=== PATIENT | female | born 1985 | race Caucasian/White ===

== ENCOUNTER 2021-11-10 13:21 | Outpatient (REF) | payer OTHER, SELFPAY ==
[2021-11-12 15:34] LABS: H Pylori Breath Test Negative (Negative)
== END 2021-11-10 13:22 | disposition home or self-care (01) ==
LOC: HO.LNP 13:21
PROVIDERS: PCP Internal Medicine; Visit Provider Physician Assistant
DX: E66.01 Morbid (severe) obesity due to excess calories (principal); Z68.45 Body mass index [BMI] 70 or greater, adult; R40.0 Somnolence; R06.83 Snoring; Z71.3 Dietary counseling and surveillance
CPT/HCPCS: 83013; 99202; 99211

== ENCOUNTER 2021-11-11 16:05 | Outpatient (REF) | payer OTHER, SELFPAY | END 2021-11-11 16:06 | disposition home or self-care (01) | LOC: HO.LNP 16:05 | PROVIDERS: Visit Provider Physician Assistant | DX: Z13.89 Encounter for screening for other disorder (principal) ==

== ENCOUNTER → 2021-12-06 07:57 | Outpatient (BNVA) | payer OTHER, SELFPAY | PROVIDERS: PCP Internal Medicine; Visit Provider Dietitian, Registered ==

== ENCOUNTER → 2022-08-10 10:29 | Outpatient (BNVA) | payer MEDICAID, SELFPAY | PROVIDERS: PCP Internal Medicine; Visit Provider Physician Assistant | DX: E66.01 Morbid (severe) obesity due to excess calories (principal); E78.00 Pure hypercholesterolemia, unspecified; R40.0 Somnolence; Z68.44 Body mass index [BMI] 60.0-69.9, adult | CPT/HCPCS: 99212 ==

== ENCOUNTER 2022-09-02 10:13 | Outpatient (REF) | payer MEDICAID, SELFPAY ==
--- NOTE | ~2022-09-02 | XR_ITS ---
EXAMINATION: XR CHEST CLINICAL INFORMATION: Scarring. COMPARISON: None. TECHNIQUE: 2 views of the chest were obtained. FINDINGS: There is no evidence of acute parenchymal disease, pneumothorax, or pleural effusion. Heart normal size. No evidence of pulmonary edema. There is spurring at multiple levels within the thoracic spine. On lateral view, there is a region of density overlying what appears to be the T7-T8 disc space level which is likely related to visualization of bony spurring rather than a true circumscribed mass. XR/XR chest 2V IMPRESSION: No acute disease.
[2022-09-02 10:34] LABS: MANUAL DIFF FLAG NO
--- NOTE | 2022-09-02 10:48 | ECG_ITS ---
Test Reason : snoring Blood Pressure : / mmHG Vent. Rate : 080 BPM Atrial Rate : 080 BPM P-R Int : 190 ms QRS Dur : 062 ms QT Int : 360 ms P-R-T Axes : 008 013 006 degrees QTc Int : 415 ms Normal sinus rhythm Normal ECG No previous ECGs available Referred By: Naomie Knott Electronically Signed By:MODESTO NARVAEZ
[2022-09-02 11:40] LABS: Basophils Percent Auto 0.4 % (0-2); Eosinophils Absolute Auto 0.1 X10*3/uL (0.0-0.4); Eosinophils Percent Auto 1.5 % (0-4); Hematocrit 37.9 % (37.0-47.0); Hemoglobin 12.2 g/dl (12.0-16.0); Imm Gran Abs Auto 0.03 X10*3/uL (0.00-0.03); Imm Gran Pct Auto 0.3 % (0.0-0.4); Lymphocytes Absolute Auto 2.2 X10*3/uL (1.2-4.9); Lymphocytes Percent Auto 22.7 % (20-40); Mean Corpuscular HGB Conc 32.2 g/dl (31.0-35.0); Mean Corpuscular Hemoglobin 25.8 pg (27.0-33.0); Mean Corpuscular Volume 80.3 fL (80.0-98.0); Mean Platelet Volume 11.4 fL (9.4-12.3); Monocytes Absolute Auto 0.7 X10*3/uL (0.1-1.2); Monocytes Percent Auto 6.9 % (2-11); Neutrophils Absolute Auto 6.6 x10*3/uL (2.0-8.3); Neutrophils Percent Auto 68.2 % (45-73); Platelet Count 318 X10*3/uL (160-400); Red Blood Count 4.72 X10*6/uL (4.20-5.50); Red Cell Distribution Width 16.4 % (11.0-16.0); White Blood Count 9.7 X10*3/uL (4.8-10.8)
[2022-09-02 11:48] LABS: Estimated Average Glucose 100 mg/dL; Hemoglobin A1c % 5.1 %
[2022-09-02 12:22] LABS: Alanine Aminotransferase 17 U/L (0-31); Albumin Level 4.3 g/dL (3.5-5.0); Alkaline Phosphatase 80 U/L (39-117); Anion Gap 14 (12-20); Aspartate Amino Transferase 17 U/L (5-31); Bilirubin Total 0.2 mg/dL (0.0-1.0); Blood Urea Nitrogen 17 mg/dL (9-16); C Reactive Protein 2.97 mg/dL (< or = 0.50); Calcium 9.1 mg/dL (8.4-10.2); Carbon Dioxide 23 mmol/L (22-29); Chloride 106 mmol/L (96-108); Cholesterol 168 mg/dL; Estimated Glomerular Filt Rate > 60; Glucose Random 97 mg/dL (60-115); HDL Cholesterol 47 mg/dL; Iron 38 mcg/dL (30-160); LDL Cholesterol Calculated 107 mg/dl; Percent Iron Saturation 14 % (15-50); Potassium 4.1 mmol/L (3.3-5.1); Sodium 139 mmol/L (135-145); Total Iron Binding Capacity 281 mcg/dL (228-428); Triglycerides 70 mg/dL; Unsaturated Iron Binding 243 ug/dL
[2022-09-02 12:43] LABS: Ferritin 24 ng/mL (10-122); Vitamin D 25-OH Total 27.6 ng/mL (>30)
[2022-09-02 13:13] LABS: Folate 14.3 ng/mL (> or = 4.0); Vitamin B12 847 pg/mL (200-900)
[2022-09-02 13:14] LABS: Insulin 14 uU/mL (2-29)
[2022-09-04 13:41] LABS: Calcium (PTHI) 9.1 mg/dL (8.6-10.2); PTHI 64 pg/mL (16-77)
[2022-09-07 06:12] LABS: Zinc 83 mcg/dL (60-130)
[2022-09-07 07:56] LABS: Vitamin B1 8 nmol/L (8-30)
[2022-09-07 17:33] LABS: Vitamin A 29 mcg/dL (38-98)
== END 2022-09-02 10:14 | disposition home or self-care (01) ==
LOC: HO.XRAY 10:13
PROVIDERS: PCP Internal Medicine; Visit Provider Physician Assistant
DX: R06.83 Snoring (principal); R40.0 Somnolence; E66.01 Morbid (severe) obesity due to excess calories
CPT/HCPCS: 36415; 71046; 80053; 80061; 82306; 82607; 82728; 82746; 83036; 83525; 83540; 83970; 84425; 84590; 84630; 85025; 86140; 93005

== ENCOUNTER → 2022-09-06 10:13 | Outpatient (BNVA) | payer MEDICAID, SELFPAY | PROVIDERS: PCP Internal Medicine; Referring Provider Physician Assistant; Visit Provider Dietitian, Registered | DX: E66.01 Morbid (severe) obesity due to excess calories (principal) | CPT/HCPCS: 97802 ==

== ENCOUNTER → 2022-09-26 08:59 | Outpatient (REF) | payer MEDICAID, SELFPAY | LOC: HO.SL 08:59 | PROVIDERS: PCP Internal Medicine; Visit Provider Physician Assistant | DX: E66.01 Morbid (severe) obesity due to excess calories (principal); R40.0 Somnolence; R06.83 Snoring | CPT/HCPCS: 95806 ==

== ENCOUNTER 2022-10-14 07:49 | Outpatient (REF) | payer MEDICAID, SELFPAY ==
--- NOTE | ~2022-10-14 | US_ITS ---
EXAMINATION: US COMPLETE ABDOMEN WITH LIVER ELASTOGRAPHY CLINICAL INFORMATION: Obesity. Snoring. COMPARISON: None. TECHNIQUE: Real-time imaging of the abdominal viscera. Noninvasive ultrasound liver fibrosis assessment is performed using Wendy ElastPQ point quantification shear wave elastography (2D-SWE) with a C5-2 MHz transducer. Multiple elastography samples are obtained. FINDINGS: PANCREAS: Normal. The visualized pancreatic head and body are normal in appearance. The remainder of the pancreas is obscured from visualization by the overlying bowel gas. ABDOMINAL AORTA: The proximal, middle, and distal aortic segments are normal in caliber. INFERIOR VENA CAVA: Visualized portions are normal. LIVER: Normal. The liver demonstrates normal size, contour and echogenicity. No focal lesion or intrahepatic biliary duct dilatation. The right lobe measures 14.6 cm in length. The left lobe measures 10.2 cm in length. Portal flow is hepatopedal Shear wave liver elastography median stiffness is 1.67 m/s (reference: normal median stiffness is 1.3 m/s or less). IQR/median stiffness to assess sampling precision is 0.1 (reference: good quality data set is IQR/median stiffness of 0.15 or less). GALLBLADDER: Gallbladder wall thickness is 0.2 cm The gallbladder is physiologically distended without evidence of stones, sludge, polyps, wall thickening or pericholecystic fluid. COMMON BILE DUCT: Normal in caliber measuring 0.3 cm in diameter. RIGHT KIDNEY: Normal. No hydronephrosis. No renal calculi or focal parenchymal lesions. The kidney measures 9.4 cm in maximum dimension. LEFT KIDNEY: Normal. No hydronephrosis. No renal calculi or focal parenchymal lesions. The kidney measures 9.8 cm in maximum dimension. SPLEEN: Normal. The spleen measures 9.3 cm in maximum dimension. FREE FLUID: None. US/US abdomen comp w elastography IMPRESSION: 1. The liver echogenicity is increased. No focal lesion seen. Rest of the abdominal ultrasound is unremarkable. 2. Liver elastography: Median liver stiffness measures 1.67 m/s corresponds to cACLD (ruled out). REFERENCE Society of Radiologists in Ultrasound Liver Stiffness Thresholds (2019): LIVER STIFFNESS THRESHOLDS: *Liver Stiffness equal or less than 1.3 m/s: High probability of being normal. *Liver Stiffness less than 1.7 m/s: In the absence of other known clinical signs, rules out compensated advanced chronic liver disease. *Liver Stiffness 1.7-2.1 m/s: Suggestive of compensated advanced chronic liver disease but need further test for confirmation. *Liver Stiffness over 2.1 m/s: Rules in compensated advanced chronic liver disease. *Liver Stiffness over 2.4 m/s: Suggestive of clinically significant portal hypertension. QUALITY OF DATA SET: *IQR/Median value equal or less than 0.15 implies a quality data set. *IQR/Median value over 0.15 implies a poor quality data set. SIGNIFICANT CHANGE FROM PRIOR EXAM: Significant change if liver stiffness measurement is 10% or greater from prior exam. OTHER CONSIDERATIONS: The stage of liver fibrosis may be overestimated in the setting of acute hepatitis, liver inflammation, elevated liver function tests, hepatic vascular congestion, obstructive cholestasis, non-fasting state, and infiltrative diseases such as amyloidosis and lymphoma. In some patients with NAFLD, the liver stiffness thresholds for compensated advanced chronic liver disease may be lower. In causes other than viral hepatitis and NAFLD, liver stiffness thresholds are not well established.
--- NOTE | ~2022-10-14 | FL_ITS ---
EXAMINATION: XR GI SERIES CLINICAL INFORMATION: Obesity COMPARISON: None TECHNIQUE: Upper GI was performed using thin and thick barium and effervescent granules. FINDINGS: Esophageal motility is normal. No hernia or reflux. Normal stomach and duodenum. No fold thickening, mass, ulcer or stricture. FLUOROSCOPY TIME: 0.5 DOSE AREA PRODUCT: 4.3 kirkpatrick per centimeter squared. 20 saved fluoroscopic images. FL/FL upper GI series IMPRESSION: Unremarkable examination.
== END 2022-10-14 07:50 | disposition home or self-care (01) ==
LOC: HO.US 07:49
PROVIDERS: Visit Provider Physician Assistant
DX: Z01.818 Encounter for other preprocedural examination (principal); E66.01 Morbid (severe) obesity due to excess calories; R06.83 Snoring; R40.0 Somnolence
CPT/HCPCS: 74240; 76705; 76981

== ENCOUNTER 2022-10-28 07:44 | Outpatient (REF) | payer MEDICAID, SELFPAY ==
[2022-10-28 09:12] LABS: TSH reflex Free T4 1.35 uIU/mL (0.32-4.0)
== END 2022-10-28 07:45 | disposition home or self-care (01) ==
LOC: HO.LAB 07:44
PROVIDERS: PCP Internal Medicine; Visit Provider Surgery
DX: E66.01 Morbid (severe) obesity due to excess calories (principal)
CPT/HCPCS: 36415; 84443

== ENCOUNTER 2022-11-10 05:47 | Inpatient (IN) | payer MEDICAID, SELFPAY ==
[2022-11-03 07:57] LABS: MANUAL DIFF FLAG NO
[2022-11-03 08:14] LABS: Basophils Percent Auto 0.3 % (0-2); Eosinophils Absolute Auto 0.2 X10*3/uL (0.0-0.4); Eosinophils Percent Auto 1.7 % (0-4); Hematocrit 38.8 % (37.0-47.0); Hemoglobin 12.2 g/dl (12.0-16.0); Imm Gran Abs Auto 0.03 X10*3/uL (0.00-0.03); Imm Gran Pct Auto 0.3 % (0.0-0.4); Lymphocytes Absolute Auto 2.2 X10*3/uL (1.2-4.9); Lymphocytes Percent Auto 22.6 % (20-40); Mean Corpuscular HGB Conc 31.4 g/dl (31.0-35.0); Mean Corpuscular Hemoglobin 24.5 pg (27.0-33.0); Mean Corpuscular Volume 78.1 fL (80.0-98.0); Mean Platelet Volume 10.6 fL (9.4-12.3); Monocytes Absolute Auto 0.8 X10*3/uL (0.1-1.2); Monocytes Percent Auto 8.6 % (2-11); Neutrophils Absolute Auto 6.4 x10*3/uL (2.0-8.3); Neutrophils Percent Auto 66.5 % (45-73); Platelet Count 309 X10*3/uL (160-400); Red Blood Count 4.97 X10*6/uL (4.20-5.50); Red Cell Distribution Width 16.2 % (11.0-16.0); White Blood Count 9.6 X10*3/uL (4.8-10.8)
[2022-11-03 08:19] LABS: INTERNATIONAL NORM RATIO 1.1 (0.9-1.1); Prothrombin Time 13.2 SEC (10.0-13.1)
[2022-11-03 08:21] LABS: Estimated Average Glucose 103 mg/dL; Hemoglobin A1c % 5.2 %
[2022-11-03 08:54] LABS: Anion Gap 13 (12-20); Blood Urea Nitrogen 17 mg/dL (9-16); Calcium 9.1 mg/dL (8.4-10.2); Carbon Dioxide 24 mmol/L (22-29); Chloride 105 mmol/L (96-108); Estimated Glomerular Filt Rate > 60; Glucose Random 95 mg/dL (60-115); Potassium 4.2 mmol/L (3.3-5.1); Sodium 138 mmol/L (135-145)
[2022-11-03 08:55] LABS: Alanine Aminotransferase 17 U/L (0-31); Albumin Level 4.2 g/dL (3.5-5.0); Alkaline Phosphatase 82 U/L (39-117); Aspartate Amino Transferase 18 U/L (5-31); Bilirubin Total 0.2 mg/dL (0.0-1.0); Cholesterol 165 mg/dL; HDL Cholesterol 48 mg/dL; Insulin 8 uU/mL (2-29); LDL Cholesterol Calculated 100 mg/dl; Total Protein 6.9 g/dL (6.5-8.0); Triglycerides 86 mg/dL
--- NOTE | 2022-11-05 01:21 | MHC.SHP ---
Pre-Procedural Eval Section A Date of Service: 11/05/22 The patient is an INPATIENT: Yes The History & Physical has been completed within 30 days and I have reviewed it.: No Section B Chief Complaint: Morbid (severe) obesity due to excess calories Relevant Family History (Specify if Yes): No Relevant Social History: None Present Medications: None Medical History: No relevant PMH History of Previous Operations: No relevant previous surgery Allergies: Allergies Allergy/AdvReac Type Severity Reaction Status Date / Time aspirin [ASPIRIN] Allergy Severe RED/SWELLING-FACIAL, Verified 11/02/22 14:22 swelling Review of Systems Sugical H&P ROS: Negative: Constitution, Cardiovascular, Respiratory, Neurological, Psychiatric, Hem-Onc, Allergic/Immunologic, Gastrointestinal, Genitourinary, Musculoskeletal, Integumentary, Endocrine and Eyes/Ears/Nose/Throat Exam Surgical H&P Exam: Normal: HEENT, Normal: Heart, Normal: Lungs, Normal: Extremities, Normal: Abdomen, Normal: Skin and Normal: Neurological Plan Diagnosis/Plan: Unchanged I have reviewed the history and physical and performed a pertinent physical examination on my patient. No changes have occurred unless specified.
[2022-11-07 10:21] VITALS: BMI 55.9
--- NOTE | 2022-11-09 09:50 | P.CONAN_ITS ---
Documented by User: Antionette Galvan NP 11/09/22 09:51 HPI - Anesthesia Eval Consult details Narrative: 37yo F for Gastrectomy Sleeve,EGD,Possible Diaphragmatic Hernia,Possible Ventral Hernia,Possible Open PMFSH Active Problems Active Problems: All Active Problems (Updated 11/03/22 @ 09:27 by Lety Phillips RN) Morbid obesity (Acute) Daytime somnolence (Acute) Snoring (Acute) Hypercholesteremia (Acute) DJD (degenerative joint disease) (Acute) GERD (gastroesophageal reflux disease) (Acute) Past Medical History Medical History DJD (degenerative joint disease) Elevated cholesterol GERD (gastroesophageal reflux disease) Stone in kidney Family History Family History Mother Diabetes Hypertension Fibromyalgia Arthritis Father Stomach cancer Diabetes Hypertension Blind Sister Arthritis Sister No problems noted. Brother No problems noted. Son No problems noted. Surgical History Surgical History H/O lithotripsy H/O: knee surgery History of ankle surgery Hx of section Social History Social History Household Members Other:: son 16 year old Are you a primary point of care technician to a significant other at home: Yes (son) Do you presently have visiting nurse or other home services: No Alcohol intake: never Patient Tobacco Use Status: Former Tobacco user Quit Date: 2009 Tobacco use type: Cigarette Have you been hit, kicked, punched, or otherwise hurt by someone within the past year? If so, by whom?: No Are you DNR?: No Advance Directives: No Advance Directives Information Provided: Yes Advance Directives on File: No Recently lost weight without trying: No Patient : No FDLMP: 10/15/2022 : No Poor oral hygiene: No Meds Allergies Allergy/AdvReac Type Severity Reaction Status Date / Time aspirin [ASPIRIN] Allergy Severe RED/SWELLING-FACIAL, Verified 11/02/22 14:22 swelling Home Medications Medication Instructions Recorded Confirmed Last Taken Type atorvastatin 10 mg tablet 10 mg PO DAILY 08/10/22 11/07/2222 History cetirizine 10 mg tablet 10 mg PO DAILY 08/10/22 11/07/22 11/08/22 History fluticasone propionate 50 1 spray intranasal DAILY 08/10/22 11/10/22 11/08/22 History mcg/actuation nasal spray,suspension Exam Exam Date and Time: November 09, 2022 0950 Height,Weight and Vital Signs: Height 4 ft 3 in Weight 93.894 kg Pertinent Lab Results Pertinent Lab Results: Laboratory Tests 11/03/22 11/03/22 11/03/22 07:51 07:56 07:56 WBC 9.6 RBC 4.97 Hgb 12.2 Hct 38.8 MCV 78.1 L MCH 24.5 L MCHC 31.4 RDW 16.2 H Plt Count 309 MPV 10.6 Immature Gran % (Auto) 0.3 Neut % (Auto) 66.5 Lymph % (Auto) 22.6 [place] % (Auto) 8.6 Eos % (Auto) 1.7 Baso % (Auto) 0.3 Lymph # (Auto) 2.2 [place] # (Auto) 0.8 Eos # (Auto) 0.2 Baso # (Auto) 0.0 Abs Immat Gran (auto) 0.03 Absolute Neuts (auto) 6.4 Absolute Nucleated RBC 0.000 Nucleated RBC % (auto) 0.0 PT 13.2 H INR 1.1 APTT 34.0 Sodium Potassium Chloride Carbon Dioxide Anion Gap BUN Creatinine Estim Creat Clear Calc Estimated GFR Random Glucose Estimat Average Glucose Hemoglobin A1c % Insulin Level Calcium Total Bilirubin AST ALT Alkaline Phosphatase C-Reactive Protein Total Protein Albumin Triglycerides Cholesterol LDL Cholesterol, Calc HDL Cholesterol Blood Type O Positive Antibody Screen NEGATIVE 11/03/22 11/03/22 07:56 07:56 WBC RBC Hgb Hct MCV MCH MCHC RDW Plt Count MPV Immature Gran % (Auto) Neut % (Auto) Lymph % (Auto) [place] % (Auto) Eos % (Auto) Baso % (Auto) Lymph # (Auto) [place] # (Auto) Eos # (Auto) Baso # (Auto) Abs Immat Gran (auto) Absolute Neuts (auto) Absolute Nucleated RBC Nucleated RBC % (auto) PT INR APTT Sodium 138 Potassium 4.2 Chloride 105 Carbon Dioxide 24 Anion Gap 13 BUN 17 H Creatinine 0.71 Estim Creat Clear Calc TNP Estimated GFR > 60 Random Glucose 95 Estimat Average Glucose 103 Hemoglobin A1c % 5.2 Insulin Level 8 Calcium 9.1 Total Bilirubin 0.2 AST 18 ALT 17 Alkaline Phosphatase 82 C-Reactive Protein 4.80 H Total Protein 6.9 Albumin 4.2 Triglycerides 86 Cholesterol 165 LDL Cholesterol, Calc 100 HDL Cholesterol 48 Blood Type Antibody Screen Narrative Narrative: EKG 08/2022 Vent. Rate : 080 BPM ? ? Atrial Rate : 080 BPM ?? P-R Int : 190 ms? QRS Dur : 062 ms ? ? QT Int : 360 ms ? ? ? P-R-T Axes : 008 013 006 degrees ?? QTc Int : 415 ms ? Normal sinus rhythm Normal ECG No previous ECGs available Assessment and Plan Assessment Anesthesia Assessment: Chart Reviewed Documented by User: Deepa Cheng MD 11/10/22 07:15 [facility] Past Medical History Medical History DJD (degenerative joint disease) Elevated cholesterol GERD (gastroesophageal reflux disease) Stone in kidney Functional capacity: independent ambulation Patient : No Family History Family History Mother Diabetes Hypertension Fibromyalgia Arthritis Father Stomach cancer Diabetes Hypertension Blind Sister Arthritis Sister No problems noted. Brother No problems noted. Son No problems noted. Family history of problems with anesthesia: No Surgical History Surgical History H/O lithotripsy H/O: knee surgery History of ankle surgery Hx of section History of Problems with Anesthesia: No Social History Social History Household Members Other:: son 16 year old Are you a primary point of care technician to a significant other at home: Yes (son) Do you presently have visiting nurse or other home services: No Alcohol intake: never Patient Tobacco Use Status: Former Tobacco user Quit Date: 2009 Tobacco use type: Cigarette Have you been hit, kicked, punched, or otherwise hurt by someone within the past year? If so, by whom?: No Are you DNR?: No Advance Directives: No Advance Directives Information Provided: Yes Advance Directives on File: No Recently lost weight without trying: No Patient : No FDLMP: 10/15/2022 : No Poor oral hygiene: No Meds Allergies Allergy/AdvReac Type Severity Reaction Status Date / Time aspirin [ASPIRIN] Allergy Severe RED/SWELLING-FACIAL, Verified 11/02/22 14:22 swelling Home Medications Medication Instructions Recorded Confirmed Last Taken Type atorvastatin 10 mg tablet 10 mg PO DAILY 08/10/22 11/07/22 11/08/22 History cetirizine 10 mg tablet 10 mg PO DAILY 08/10/22 11/07/22 11/08/22 History fluticasone propionate 50 1 spray intranasal DAILY 08/10/22 11/10/22 11/08/22 History mcg/actuation nasal spray,suspension Exam Airway Mallampati Class: II TM Dist: >3cm Neck ROM: Full Heart: RRR Lungs: CTA Assessment and Plan Final Anesthetic Review Family History of Problems with Anesthesia: No History of Problems with Anesthesia: No ASA Class: III Final Preanesthetic Review: No Changes in Pt Med Stat, Meds/Allgs Chart Reviewed, Consent Obtained/Reviewed and Anes Risks/Benef Reviewed Patient Risk: Intermediate Procedure Risk: Low Anesthetic Plan Anesthetic Plan: GA Disposition: Standard PACU
[2022-11-09 12:14] LABS: COVID-19 Test Negative (Negative); IDNOW Serial# 9DB6401D
[2022-11-10] VITALS (13 sets, daily range): BP systolic 111–149; BP diastolic 63–89; PULSE 67–101; RESP 12–23; TEMP 36.1–37.1; O2SAT 97–100
[2022-11-10 06:19] LABS: UPreg QC Valid YES; Urine Pregnancy NEGATIVE (NEGATIVE)
[2022-11-10] MEDS: Lactated Ringers 1,000 ML 999 ML IV (06:30)
[2022-11-10] MEDS: Lactated Ringers 1,000 ML 100 ML IVCONT (06:30)
--- NOTE | 2022-11-10 07:19 | PHA.MEDREC ---
Pharmacy Consult ? Medication Reconciliation Pharmacy has reviewed the medication reconciliation completed by nursing. Mary Lou Randolph, ColinD
--- NOTE | 2022-11-10 07:58 | P.BOP_ITS ---
Brief Operative Note Date of Service: 11/10/22 Pre-op diagnosis: Morbid obesity with comorbidities (see below) Post-op diagnosis: same Procedure: INITIAL PATIENT BMI ON PRESENTATION AT OUR OFFICE: 71.4 kg/m2 LAST BMI BEFORE SURGERY: 54.2 kg/m2 COMORBIDITIES: hyperlipidemia, GERD, DJD, liver fibrosis ?The patient presented to the Weight Management Program with significant obesity that was negatively impacting the patient's comorbidities as listed above.? The program is a phased program with a special focus on preoperative medical weight management to promote substantial weight loss and prepare the patients for the second phase of the program: bariatric surgery. The patient participated in an intensive weekly lifestyle ?intervention and exercise program during which the patient ?has lost between the initial office visit and the last preoperative visit 54.2 lbs, or 20.53% of initial actual body weight. It was deemed appropriate for the patient to now have bariatric surgery. In light of the current Covid-19 pandemic and the well documented strong association of obesity and increased risk of worse outcomes if infected with Covid-19 (REFERENCES: https://pubmed.ncbi.nlm.nih.gov/46651627/ ,? https ://pubmed.ncbi.nlm.nih.gov/72865843/ ), any delay in undergoing bariatric surgery may lead to the patient's worsening health condition and increased?risk of more severe Covid-19 disease if infected. In addition a recent?study from [facility] published in [facility] on 11/22/2021 ([email or web address]) found that, among patients with obesity, substantial weight loss achieved with surgery was associated with improved outcomes of COVID-19 infection. The findings suggest that obesity can be a modifiable risk factor for the severity of COVID-19 infection. In addition, the patient met the BMI-criteria for bariatric surgery based on the BMI on initial presentation. The patient should not be penalized for achieving such weight loss because ?it is not sustainable long-term without surgical intervention and it was achieved in preparation for bariatric surgery ?under my direction and based on my published research ([email or web address]).[email or web address] and? [email or web address].soard.org/article/[email or web address](48)19968-X/pdf ) ?that a 10% preoperative weight loss improves long-term weight loss after surgery and reduces perioperative complications.? Insurance carriers such as [facility] have endorsed my recommendations ?and have included in their policies criteria to include a 10% preoperative weight loss requirement. PROCEDURE: Esophago-gastroscopy, laparoscopic lysis of adhesions, laparoscopic sleeve gastrectomy and laparoscopic gastropexy INDICATIONS: This is a 37 year-old female who was electively scheduled for laparoscopic, possibly open sleeve gastrectomy. The risks and complications of the procedure were discussed with the patient in advance, particularly the possibility of ; pulmonary embolism; staple line leak; bleeding; GERD; cardiac, pulmonary, or renal complications; as well as long-term problems such as insufficient weight loss, vitamin deficiency, strictures, or ulcers. The patient understood all the risks, and was in agreement to proceed with surgery. DESCRIPTION OF PROCEDURE: After informed consent was obtained from the patient, the patient was given preoperative antibiotics, and was transferred to the operating room. After successful induction of general anesthesia, pneumatic compression devices were placed on both lower extremities. An upper endoscopy was performed next. The oropharynx and esophagus appeared to be within normal limits. There was no diaphragmatic hernia present consistent with the findings of the preoperative upper GI. The stomach was entered. Then after all fluid and air were suctioned and the stomach was fully decompressed, the scope was withdrawn and secured in the mid esophagus. The patient was then prepped and draped in the usual sterile manner, and abdominal access was established at the right upper quadrant with the Rosalinda technique. A 12 mm blunt port was inserted, and the abdomen was insufflated with CO2 to a pressure of 15 mmHg. Under direct visualization, additional ports were placed, specifically two 5 mm Versi-step ports to the left upper quadrant, and a 5 mm Versi-Step port to the right upper quadrant. 1% lidocaine plain was used to infiltrate all port sites as well as all fascia defects. Using the EndoClose suture passer device, I placed a #1 Polysorb tie across the falciform ligament in order to retract it up against the abdominal wall and prevent injury of the ligament with our instruments during the procedure. Following that, the patient was placed in a steep reverse Trendelenburg position. An additional 5 mm port was placed to the right flank for the Mediflex retractor that was used to retract the left lobe of the liver. The gastro-esophageal fat pad was opened with the ultrasonic device (Thunderbeat, Olympus) and the anterior esophagus and hiatus were exposed. The angle of His was opened with the ultrasonic device the fundus of the stomach from any diaphragmatic and splenic attachments. I then opened the gastrocolic ligament between the transverse colon and the greater curvature of the stomach with the ultrasonic device to enter the lesser sac and facilitate the ligation of the short gastric vessels. I started at a mid-point along the greater curvature and using the Thunderbeat, all short gastric vessels were divided all the way to the angle of His until the left roberto was completely dissected at its entirety. I then divided the gastro-colic ligament distally to a distance of about 3-4 cm proximal to the pylorus. There were extensive congenital adhesions between the pancreas and posterior gastric wall. Those were lysed completely with the ultrasonic device. Adhesiolysis took approximately 45 min to complete. The stomach was then divided transversely with one Endo HANDY-45 purple, one HANDY- 45 orange load, one HANDY-60 purple load and two HANDY-60 articulating orange loads using the AEON stapler and loads. Every effort was made that the gastric sleeve had a tubular shape and an even caliber throughout. Once the sleeve resection was completed, the staple line of the gastric sleeve was reinforced with Hemoclips. The resected stomach was retrieved without difficulty from the Rosalinda port. A gastropexy was then performed in order to prevent postoperative GERD and partial gastric volvulus. Several interrupted 2.0 Surgidac sutures were placed between the sleeve's staple line and the previously divided greater omentum and gastro-colic ligament using the Endo-Stitch device. ?An upper endoscopy was performed. There was no narrowing at the GE junction. The scope was easily advanced all the way to the pylorus which was clearly visualized. There was no narrowing anywhere and the sleeve's caliber was even throughout. The sleeve's staple line was inspected and there was no evidence of ischemia, bleeding or dehiscence. At that point the gastroscope was withdrawn from the patient?s mouth while we were decompressing the bowel and the stomach from any remaining air. I looked into the lesser sac to see how the sleeve was situating and it was situating well. There was no bleeding from the staple line, spleen, or short gastric vessels. The Mediflex retractor was removed, and the undersurface of the liver was inspected and there was no bleeding. The patient was placed in supine position. I closed the fascial defect of the 12 mm port site with a figure of eight #1 Polysorb suture. Then 30 cc of Ropivacaine plain with 10 mg of Dexamethasone were used to infiltrate the fascial closure as well as all skin incisions. A total of 7ml of Zynrelef was applied in the Rosalinda wound. At this point, the abdomen was deflated, all ports were removed under direct vision, and no bleeding was noted from any of the port sites. The skin incisions were irrigated with saline and were closed with 4-0 absorbable monofilament sutures. Steri- Strips and OpSites were used to cover all incisions. The patient was extubated and was transferred in stable condition to the recovery room for further care. I was present and performed all cornell parts of the procedure. Mr Mobley was the behavioral health assistant. There were no residents to assist with this case. Morales Miner MD, PhD, FACS Surgeon: Darrian Miner MD Anesthesia: GETA, local and other (TAP and ml Zynrelef) Was an Emergency Medical Services Coordinator used for this Procedure?: No Emergency Medical Services Coordinator: Dimitry Mobley Estimated blood loss (mL): 10 IV fluids (mL): 2,000 Urine output (mL): 0 (No Minor to record) Pathology: other (Stomach) Condition: stable Disposition: PACU
--- NOTE | 2022-11-10 08:01 | PM.PNGS ---
Subjective Subjective Date of Service: 11/11/22 Interval history: Patient has mild incisional pain, but was able to ambulate and use the incentive spirometer. She is tolerating phase 1 bariatric diet Physical Exam Vital Signs: Vital Signs: BMI result Body Mass Index 55.9 GI: Inspection: Yes normal to inspection, Yes incision (clean, dry and intact) and Yes obesity Palpation (GI): Soft to palpation Extrem: Right lower extremity: normal to inspection (no calf tenderness) Left lower extremity: normal to inspection (no calf tenderness) Objective Data Active Medications Fentanyl (Fentanyl Citrate/Pf 100 Mcg/2 Ml Vial) 25 mcg IVPUSH Q5M PRN; Protocol PRN Reason: Pain, Moderate (Pain Scale 4-6 Lactated Ringer's (Lr) 1,000 mls @ 100 mls/hr IVCONT .Q10H JEFF Last Admin: 11/10/22 06:30 Dose: 100 mls/hr Documented By: BRITTNEY Ondansetron HCl (Ondansetron Hcl 4 Mg/2 Ml Vial) 4 mg IVPUSH ONCE PRN PRN Reason: Nausea and Vomiting Labs CBC & Chem 7: 11/11/22 05:11 11/11/22 05:11 Labs: Laboratory Results - last 24 hr 11/09/22 11/10/22 11:36 06:00 Urine Test NEGATIVE COVID-19 (JACOBY) Negative COVID-19 Clin Com See Note Procedures Date of Service Date of Service: 11/11/22 Progress Note: A&P Assessment and plan (1) Morbid obesity: Status: Acute Assessment and Plan: s/p laparoscopic sleeve gastrectomy, lysis of adhesions and gastropexy Doing well Check am labs. If OK, will discharge home? (2) Hypercholesteremia: Status: Acute (3) DJD (degenerative joint disease): Status: Acute (4) GERD (gastroesophageal reflux disease): Status: Acute (5) Liver fibrosis: Status: Acute (6) S/P laparoscopic sleeve gastrectomy: Status: Acute (7) Congenital intra-abdominal adhesions: Status: Acute Time Spent With Patient Time: Total time managing care of this patient today ____ minutes. Quality Stroke Does the patient have a stroke diagnosis?: No VTE Prior VTE?: No VTE Risk Level:: Surgical - moderate VTE Device Contraindication: N/A - Device Ordered VTE Drug Contraindication: Treatment Not Indicated
--- NOTE | 2022-11-10 10:48 | PM.DS ---
DS: Providers Provider Date of Service: 11/11/22 Date of admission: 11/10/22 05:47 Primary care physician: Tj Rm MD DS: Diagnosis Discharge Diagnosis (1) Morbid obesity: Status: Acute (2) Hypercholesteremia: Status: Acute (3) DJD (degenerative joint disease): Status: Acute (4) GERD (gastroesophageal reflux disease): Status: Acute (5) Liver fibrosis: Status: Acute (6) S/P laparoscopic sleeve gastrectomy: Status: Acute (7) Congenital intra-abdominal adhesions: Status: Acute DS: Summary Hospital Course Hospital Course: ADMITTING DIAGNOSIS: morbid obesity, gerd, nephrolithiasis, HLD ? DISCHARGE DIAGNOSIS: same, s/p laparoscopic sleeve gastrectomy ? PAST SURGICAL HISTORY: cesarian section, knee and ankle surgery ? PROCEDURE: upper endoscopy, laparoscopic sleeve gastrectomy ? DISCHARGE SUMMARY: ? History of Present Illness: ? The patient is a?37 year-old woman with a BMI of?71.3 kg/m2 and associated co-morbidities as described above. The patient had extensive work-up,lost?54.2 lbs preoperatively and was electively scheduled for laparoscopic, possible open sleeve gastrectomy and gastropexy. Risks and complications of the surgery were discussed with the patient in advance, particularly the possibility of , pulmonary embolism, anastomotic leak, bleeding, bowel injury, GERD, cardiac, renal or pulmonary complications. The patient understood all the risks and was in agreement with the surgical plan. ? Hospital Course: ? The patient underwent an uneventful laparoscopic sleeve gastrectomy with gastropexy on the day of admission. Postoperatively, the patient was transferred to the surgical floor. The patient received IV Acetaminophen and IV dilaudid for pain control. Patient was started on bariatric phase 1 diet POD #0. On postoperative day one, the patient was feeling well without nausea, vomiting, fevers, or tachycardia. The patient had some mild incisional pain and the abdomen was soft. ? On the morning of postoperative day one, the patient was continued on 1 ounce of water or ice every half hour. During the day, the patient did fairly well, having some incisional pain, but able to ambulate adequately and to tolerate liquids well. ? Since the patient is doing well, we decided that the patient was ready to be discharged. The patient was given instructions to follow-up with me next week and to call my office for any fever over 101, persistent abdominal pain, nausea, vomiting, GERD, symptoms of DVT such as calf tenderness, or leg swelling, or pulmonary embolism such as chest pain or shortness of breath. The patient was also instructed to drink 40-60 ounces of liquids per day using the 1-ounce cups. The patient had been given prescriptions for Tylenol for pain, Zofran prn for nausea, and pantoprazole and carafate previously. The patient was encouraged to ambulate and use the incentive spirometer. The patient was allowed to shower, but no baths, and encouraged to stay active at home. All of these instructions were given to the patient personally. All questions were answered and the patient understood all instructions, the instructions were also given to the patient in print. Time Spent with Patient Time attestation: Total time managing care of this patient today ____ minutes. Discharge coordination time: Less than 30 minutes Quality: Safe Use of Opioids Does Pt have an Active Cancer Diagnosis on the Problem List?: No Quality: Stroke Does the patient have a stroke diagnosis?: No Physical Exam Vital Signs: Vital Signs: BMI result Body Mass Index 55.9 DS: Data Data Completed and Pending Pending studies at discharge: Pending at discharge 11/10/22 09:43 Surgical [PTH] Routine Labs on day of discharge: Laboratory Results - last 24 hr 11/09/22 11/10/22 11:36 06:00 Urine Test NEGATIVE COVID-19 (JACOBY) Negative COVID-19 Clin Com See Note Discharge Plan Discharge Anticipated Discharge Date/Time: 11/11/22 10:00 Patient Disposition: Home, Self-Care Discharge Diagnosis: s/p laparoscopic sleeve gastrectomy Referrals: Tj Rm MD [Primary Care Provider] - 1 Week Discharge Medications: Continued fluticasone propionate 50 mcg/actuation spray,suspension 1 spray intranasal DAILY cetirizine 10 mg tablet 10 mg PO DAILY atorvastatin 10 mg tablet 10 mg PO DAILY pantoprazole 40 mg tablet,delayed release (DR/EC) 40 mg PO DAILY Qty: 30 2RF sucralfate 100 mg/mL suspension 10 ml PO BID Qty: 400 2RF Label Comments: postop meds ondansetron HCl 4 mg tablet 4 mg PO Q12H Qty: 20 0RF Label Comments: post op meds Discontinued cholecalciferol (vitamin D3) 25 mcg (1,000 unit) capsule 25 mcg PO DAILY Qty: 30 6RF vitamin A palmitate 10,000 unit tablet 20,000 unit PO DAILY 14 Days Qty: 28 0RF Discharge Orders: Discharge Order (Routine); Ordered 11/11/22 Ordered By: Darrian Miner Activity on Discharge: No heavy lifting Stand Alone Forms: Patient Portal Discharge page Care Plan Goals: weight loss Health Concerns: morbid obesity Plan of Treatment: No tub baths, sex or returning to work until discussed at first post op appointment. No exercise, alcohol, tobacco or illegal drug use. Continue to use incentive spirometer hourly while awake. Walk in home for 5- 10 minutes every 2 hours during the first week. Follow all instructions in the bariatric handbook and call with any questions.Discharge Instructions 1. Please call your doctor or come back to the emergency room should any new symptoms arise. 2. You will receive a courtesy call from [facility] 24-48 hours after discharge. 3. Activity: abstain from alcohol, practice limited stair climbing, no bending, no driving, no exercise, no illicit substances, no lifting, no sex, no tub bath, no work. 4. Diet: continue as discussed with Dr. Miner. 5. Dressing Change/Wound Care: Your incision is covered by clear bandages and guaze underneath. If the area is tender, you may apply an ice pack for short intervals (no more than 20 minutes on, followed by at least 20 minutes off). Do not apply heat. Do not use creams, lotions, or topical antibiotics unless instructed to do so by your surgeon. These can cause infection or allergic reaction. 6. Call your doctor if: - Your temperature exceeds 101.5 F - You experience excessive pain or swelling - You have an unexpected reaction to medication - You have excessive bleeding - You experience continued vomiting/nausea - Your incision begins to separate - Your incision shows signs of infection such as increased redness, swelling, excessive pain, heat, or drainage (light blood or clear fluid is normal) 7. General instructions: No lifting greater than 5 lbs for the next 4 weeks[address] within 24 hours of taking narcotic pain medications. If you do not move your bowels in the next 2 days, please take milk of magnesia over the counter. Please follow the post op diet and do not advance your diet until you are seen in the office in about 2 weeks. Please walk around your home every hour or two to prevent blood clots from forming in your legs. You do not need to wake from sleeping to walk. Please sleep in a bed or couch to prevent kinking at the hips and knees. Please take your incentive spirometer (your lung bottom wheeler) home with you and use it for the next few days to prevent pneumonias. You may shower, no hot tubs, baths or swimming pools. Please call the office with any questions or concerns such as increasing abdominal pain, fever, chills, shortness of breath, chest pain, leg pain or swelling, or redness or drainage from your incisions. Please stay on stage 3 diet which includes sugar free clear liquids such as ice pops and jello and broth and crystal light. Avoid all carbonation. Please drink 3 protein shakes with at least 25-30 grams of protein daily or 3 of the Celebrate 4:1 shakes which can be purchased in our office. The Celebrate shakes have all of the bariatric vitamins you need if you consume these shakes. If you are drinking other protein shakes, you will need to purchase the Celebrate multivitamins and calcium that we provide in the office (they will provide all the vitamins you need). Please make sure you are consuming at least 40-60 ounces of water in addition to your 3 protein shakes daily. Do not hesitate to contact the office with any questions at . The patient's medical history has been reviewed and they are considered low risk for post op DVT and therefore DVT prophylaxis is not considered necessary. Travel after surgery was reviewed. The patient has not disclosed any travel plans during the first 30 days after surgery and they have been advised that within the first 30 days after surgery any bus, plane, train or car travel over 2 hours in duration is contraindicated due to the possibility of developing blood clots from immobility. Any travel, needs to include periods of ambulation of 10 minutes in duration every 2 hours.? The patient was instructed to discuss any plans for travel during this period with their bariatric surgeon. Assessment: stable s/p laparoscopic sleeve gastrectomy
[2022-11-10] MEDS: ondansetron HCL 4 MG/2 ML VIAL IVPUSH ×2 (10:58→20:02)
[2022-11-10] MEDS: Famotidine/PF 20 MG/2 ML VIAL IVPUSH ×2 (11:16→19:59)
[2022-11-10 12:19] LABS: Hematocrit 36.4 % (37.0-47.0); Hemoglobin 11.5 g/dl (12.0-16.0)
[2022-11-10 12:36] LABS: Anion Gap 17 (12-20); Blood Urea Nitrogen 11 mg/dL (9-16); Calcium 8.7 mg/dL (8.4-10.2); Carbon Dioxide 19 mmol/L (22-29); Chloride 104 mmol/L (96-108); Creatinine Clr Calc Pharmacy 96.1; Estimated Glomerular Filt Rate > 60; Glucose Random 179 mg/dL (60-115); Sodium 136 mmol/L (135-145)
[2022-11-10] MEDS: ceFAZolin Sodium/Dextrose,Iso 2 GM/50 ML PIGGYBACK IV (13:38)
[2022-11-10] MEDS: Lactated Ringers 1,000 ML 150 ML IVCONT ×2 (13:42→19:59)
[2022-11-10] MEDS: Metoclopramide HCl 10 MG/2 ML VIAL IVPUSH (14:24)
[2022-11-10] MEDS: Acetaminophen 1,000 MG/100 ML PIGGYBACK 16.7 MG IV ×2 (14:42→19:57)
[2022-11-10] MEDS: 0.9 % Sodium Chloride Flush 3 ML SYRINGE IVFLUSH (20:00)
[2022-11-11] MEDS: Acetaminophen 1,000 MG/100 ML PIGGYBACK 16.7 MG IV ×2 (02:19→08:51)
[2022-11-11] MEDS: Lactated Ringers 1,000 ML 150 ML IVCONT (02:20)
[2022-11-11 03:39] VITALS: BP 125/62; PULSE 56; RESP 18; TEMP 36.6; O2SAT 99
[2022-11-11 05:52] LABS: MANUAL DIFF FLAG NO
[2022-11-11 05:59] LABS: Basophils Percent Auto 0.1 % (0-2); Hematocrit 32.2 % (37.0-47.0); Imm Gran Abs Auto 0.07 X10*3/uL (0.00-0.03); Imm Gran Pct Auto 0.5 % (0.0-0.4); Lymphocytes Absolute Auto 1.2 X10*3/uL (1.2-4.9); Lymphocytes Percent Auto 9.2 % (20-40); Mean Corpuscular HGB Conc 31.1 g/dl (31.0-35.0); Mean Corpuscular Hemoglobin 24.6 pg (27.0-33.0); Mean Corpuscular Volume 79.3 fL (80.0-98.0); Mean Platelet Volume 11.7 fL (9.4-12.3); Monocytes Absolute Auto 1.1 X10*3/uL (0.1-1.2); Monocytes Percent Auto 8.5 % (2-11); Neutrophils Absolute Auto 10.9 x10*3/uL (2.0-8.3); Neutrophils Percent Auto 81.7 % (45-73); Platelet Count 274 X10*3/uL (160-400); Red Blood Count 4.06 X10*6/uL (4.20-5.50); Red Cell Distribution Width 15.9 % (11.0-16.0); White Blood Count 13.3 X10*3/uL (4.8-10.8)
[2022-11-11 06:19] LABS: Anion Gap 15 (12-20); Blood Urea Nitrogen 6 mg/dL (9-16); Calcium 8.4 mg/dL (8.4-10.2); Carbon Dioxide 21 mmol/L (22-29); Chloride 107 mmol/L (96-108); Creatinine Clr Calc Pharmacy 109.7; Estimated Glomerular Filt Rate > 60; Glucose Random 103 mg/dL (60-115); Potassium 4.1 mmol/L (3.3-5.1); Sodium 139 mmol/L (135-145)
[2022-11-11] MEDS: ondansetron HCL 4 MG/2 ML VIAL IVPUSH (06:35)
[2022-11-11 07:15] VITALS: O2SAT 98
[2022-11-11 07:57] VITALS: BP 98/52; PULSE 86; RESP 18; TEMP 37.4; O2SAT 98
[2022-11-11] MEDS: Famotidine/PF 20 MG/2 ML VIAL IVPUSH (08:52)
--- NOTE | 2022-11-11 09:33 | MHC.CM.PN ---
EMR REVIEWED, PT ADMITTED S/P LAP SLEEVE GASTRECTOMY, CM MET W/PT WHO REPORTS SHE LIVES W/MOM AND HER 16YO SON, PT DENIES USE OF DME AND HOME SERVICES AND IS INDEP W/ALL CARE, PT REPORTS PFIZER X2, PCP CAMILLE MELENDEZ AND EDUCATED ON AND DECLINES TO COMPLETE AN HCP AT THIS TIME. D/C HOME TODAY SELF-CARE W/FOLLOW-UP ON 11/15 AND MOM TO TRANSPORT AT 10AM
--- NOTE | 2022-11-11 10:34 | HO.POSTANES ---
Post Anesthesia Evaluation Post Anesthesia Evaluation Vital Signs: Vital Signs Temp Pulse Resp BP Pulse Ox O2 Del Method 11/11/22 07:15 98 Room Air 11/11/22 07:57 99.3 F 86 18 98/52 L 98 Room Air 11/11/22 03:39 97.8 F 56 18 125/62 99 Room Air Anesthesia: General Endotracheal-GETA Mental Status: Awake Pain Control: Satisfactory Nausea/Vomiting: None Hydration: Adequate Anesthesia-Related Issues: No Anes. Related Issues
== END 2022-11-11 11:00 | disposition home or self-care (01) | DRG 403 ==
LOC: HO.SSSA 10:51 → HO.S3 14:03
PROVIDERS: Nurse Practitioner; Physician Assistant Surgical; Admitting Provider Surgery; PCP Internal Medicine; Visit Provider Surgery
PROC: 0DB64Z3 Excision of Stomach, Percutaneous Endoscopic Approach, Vertical (ICD-10-PCS; CPT 43845; principal; 2022-11-10 07:30)
DX: E66.01 Morbid (severe) obesity due to excess calories (principal); K74.00 Hepatic fibrosis, unspecified; Q43.3 Congenital malformations of intestinal fixation; E78.5 Hyperlipidemia, unspecified; K21.9 Gastro-esophageal reflux disease without esophagitis; M19.90 Unspecified osteoarthritis, unspecified site; Z20.822 Contact with and (suspected) exposure to COVID-19; Z68.43 Body mass index [BMI] 50.0-59.9, adult; Z88.6 Allergy status to analgesic agent; Z79.51 Long term (current) use of inhaled steroids; Z79.899 Other long term (current) drug therapy
CPT/HCPCS: 36415; 80048; 80053; 80061; 81025; 83036; 83525; 85014; 85018; 85025; 85610; 85730; 86140; 86850; 86900; 86901; 87635; 88307; 88342; A4649; C9088; J0131; J0690; J1100; J1170; J2250; J2405; J2550; J2765; J2795; J3010

== ENCOUNTER → 2022-11-15 08:09 | Outpatient (BNVA) | payer MEDICAID, SELFPAY | PROVIDERS: PCP Internal Medicine; Referring Provider Internal Medicine; Visit Provider Physician Assistant Surgical | DX: Z13.89 Encounter for screening for other disorder (principal) ==

== ENCOUNTER → 2022-11-24 11:06 | Outpatient (BNVA) | payer MEDICAID, SELFPAY | PROVIDERS: PCP Internal Medicine; Referring Provider Internal Medicine; Visit Provider Physician Assistant | DX: Z13.89 Encounter for screening for other disorder (principal) ==

== ENCOUNTER → 2022-11-30 11:12 | Outpatient (BNVA) | payer MEDICAID, SELFPAY | PROVIDERS: PCP Internal Medicine; Visit Provider Physician Assistant | DX: Z13.89 Encounter for screening for other disorder (principal) ==

== ENCOUNTER → 2022-12-08 08:43 | Outpatient (BNVA) | payer MEDICAID, SELFPAY | PROVIDERS: PCP Internal Medicine; Referring Provider Internal Medicine; Visit Provider Physician Assistant | DX: Z13.89 Encounter for screening for other disorder (principal) ==

== ENCOUNTER → 2022-12-15 14:30 | Outpatient (BNVA) | payer MEDICAID, SELFPAY | PROVIDERS: PCP Internal Medicine; Visit Provider Physician Assistant | DX: Z13.89 Encounter for screening for other disorder (principal) ==

== ENCOUNTER → 2022-12-29 16:17 | Outpatient (BNVA) | payer MEDICAID, SELFPAY | PROVIDERS: PCP Internal Medicine; Visit Provider Physician Assistant | DX: Z13.89 Encounter for screening for other disorder (principal) ==

== ENCOUNTER → 2023-01-09 10:00 | Outpatient (BNVA) | payer MEDICAID, SELFPAY | PROVIDERS: PCP Internal Medicine; Visit Provider Physician Assistant | DX: Z13.89 Encounter for screening for other disorder (principal) ==

== ENCOUNTER → 2023-01-26 09:00 | Outpatient (BNVA) | payer MEDICAID, SELFPAY | PROVIDERS: PCP Internal Medicine; Visit Provider Physician Assistant | DX: Z13.89 Encounter for screening for other disorder (principal) ==

== ENCOUNTER → 2023-03-07 14:00 | Outpatient (BNVA) | payer MEDICAID, SELFPAY | PROVIDERS: PCP Internal Medicine; Visit Provider Physician Assistant | DX: Z90.3 Acquired absence of stomach [part of] (principal) ==

== ENCOUNTER → 2023-04-19 14:30 | Outpatient (BNVA) | payer MEDICAID, SELFPAY | PROVIDERS: PCP Internal Medicine; Visit Provider Physician Assistant | DX: Z90.3 Acquired absence of stomach [part of] (principal); E66.9 Obesity, unspecified; Z98.84 Bariatric surgery status; K74.00 Hepatic fibrosis, unspecified; D64.9 Anemia, unspecified; E66.01 Morbid (severe) obesity due to excess calories ==

== ENCOUNTER 2023-05-23 08:47 | Outpatient (REF) | payer MEDICAID, SELFPAY ==
[2023-05-23 09:06] LABS: MANUAL DIFF FLAG NO
[2023-05-23 09:49] LABS: Basophils Percent Auto 0.5 % (0-2); Eosinophils Absolute Auto 0.1 X10*3/uL (0.0-0.4); Eosinophils Percent Auto 0.8 % (0-4); Hematocrit 33.9 % (37.0-47.0); Hemoglobin 10.5 g/dl (12.0-16.0); Imm Gran Abs Auto 0.02 X10*3/uL (0.00-0.03); Imm Gran Pct Auto 0.3 % (0.0-0.4); Lymphocytes Absolute Auto 1.7 X10*3/uL (1.2-4.9); Lymphocytes Percent Auto 21.8 % (20-40); Mean Corpuscular Volume 77.6 fL (80.0-98.0); Mean Platelet Volume 11.8 fL (9.4-12.3); Monocytes Absolute Auto 0.5 X10*3/uL (0.1-1.2); Monocytes Percent Auto 6.7 % (2-11); Neutrophils Absolute Auto 5.5 x10*3/uL (2.0-8.3); Neutrophils Percent Auto 69.9 % (45-73); Platelet Count 339 X10*3/uL (160-400); Red Blood Count 4.37 X10*6/uL (4.20-5.50); Red Cell Distribution Width 16.6 % (11.0-16.0); White Blood Count 7.8 X10*3/uL (4.8-10.8)
[2023-05-23 10:11] LABS: Estimated Average Glucose 82 mg/dL; Hemoglobin A1c % 4.5 %
[2023-05-23 10:36] LABS: Alanine Aminotransferase 13 U/L (0-31); Albumin Level 3.9 g/dL (3.5-5.0); Alkaline Phosphatase 72 U/L (39-117); Anion Gap 14 (12-20); Aspartate Amino Transferase 18 U/L (5-31); Bilirubin Total 0.3 mg/dL (0.0-1.0); Blood Urea Nitrogen 14 mg/dL (9-16); C Reactive Protein 3.73 mg/dL (< or = 0.50); Calcium 9.4 mg/dL (8.4-10.2); Carbon Dioxide 26 mmol/L (22-29); Chloride 105 mmol/L (96-108); Cholesterol 371 mg/dL; Estimated Glomerular Filt Rate > 60; Glucose Random 89 mg/dL (60-115); HDL Cholesterol 38 mg/dL; Iron 17 mcg/dL (30-160); LDL Cholesterol Calculated 311 mg/dl; Percent Iron Saturation 8 % (15-50); Potassium 3.8 mmol/L (3.3-5.1); Sodium 141 mmol/L (135-145); Total Iron Binding Capacity 220 mcg/dL (228-428); Total Protein 7.3 g/dL (6.5-8.0); Triglycerides 111 mg/dL; Unsaturated Iron Binding 203 ug/dL
[2023-05-23 11:00] LABS: Ferritin 15 ng/mL (10-122); TSH reflex Free T4 0.77 uIU/mL (0.32-4.0); Vitamin D 25-OH Total 34.7 ng/mL (>30)
[2023-05-23 11:01] LABS: Folate 18.8 ng/mL (> or = 4.0); Vitamin B12 1290 pg/mL (200-900)
[2023-05-23 20:19] LABS: Insulin 4 uU/mL (2-29)
[2023-05-24 16:29] LABS: PTHI 47 pg/mL (16-77)
[2023-05-26 18:38] LABS: Zinc 131 mcg/dL (60-130)
[2023-05-27 13:23] LABS: Vitamin B1 <6 nmol/L (8-30)
[2023-05-28 21:58] LABS: Vitamin A 23 mcg/dL (38-98)
== END 2023-05-23 08:48 | disposition home or self-care (01) ==
LOC: HO.LAB 08:47
PROVIDERS: Visit Provider Physician Assistant
DX: K74.00 Hepatic fibrosis, unspecified (principal); D64.9 Anemia, unspecified; E66.01 Morbid (severe) obesity due to excess calories; Z98.84 Bariatric surgery status; Z90.3 Acquired absence of stomach [part of]
CPT/HCPCS: 36415; 80053; 80061; 82306; 82607; 82728; 82746; 83036; 83525; 83540; 83970; 84425; 84443; 84590; 84630; 85025; 86140

== ENCOUNTER → 2023-05-24 11:07 | Outpatient (BNVA) | payer MEDICAID, SELFPAY | PROVIDERS: PCP Internal Medicine; Visit Provider Dietitian, Registered | DX: E66.9 Obesity, unspecified (principal); Z68.37 Body mass index [BMI] 37.0-37.9, adult; Z71.3 Dietary counseling and surveillance | CPT/HCPCS: 97803 ==

== ENCOUNTER → 2023-05-31 15:00 | Outpatient (BNVA) | payer MEDICAID, SELFPAY | PROVIDERS: PCP Internal Medicine; Visit Provider Physician Assistant | DX: Z90.3 Acquired absence of stomach [part of] (principal); E66.9 Obesity, unspecified; Z98.84 Bariatric surgery status; K74.00 Hepatic fibrosis, unspecified; D64.9 Anemia, unspecified; E66.01 Morbid (severe) obesity due to excess calories ==

== ENCOUNTER 2023-08-02 15:00 | Outpatient (AMB) | payer MEDICAID, SELFPAY ==
--- NOTE | 2023-08-02 15:09 | MHC.OFFVISWM ---
Intake VS Expanded 08/02/23 15:17 Height 4 ft 3 in Weight 125 lb BMI 33.8 Intake Visit Reasons: VIDEO PO LSG 11/10/22 Allergies aspirin [ASPIRIN] Allergy (Severe, Verified 12/08/22 08:53) RED/SWELLING-FACIAL, swelling Medication List - Last Reconciled 08/02/23 by Naomie Knott PA-C calcium citrate 200 mg PO BID cetirizine 10 mg PO DAILY cholecalciferol (vitamin D3) 25 mcg PO DAILY 90 days vitamin A palmitate 3,000 mcg PO DAILY HPI HPI Comments History of Present Illness Details Pt is now 9 months s/p LSG. Has lost 139 lbs. Over last 3 weeks has had cramping in toes and hands. Her cholesterol has increaased to 393 - PCP started her on a statin but stopped med after 2 days due to tachycardia. Has PCP appt tomorrow to discuss other meds for cholesterol. 8am - Premier or Fairlife 2pm - 2oz protein with 1 oz vegetables 4:30 -2 spoons of yogurt or half bar 8pm - 2 oz protien and 1 oz veg Exercise - 4d/week. You tube videos 25 minutes - still can not stand and exercise due to ankle injury PFSH Medical History DJD (degenerative joint disease) Elevated cholesterol GERD (gastroesophageal reflux disease) Stone in kidney Surgical History H/O lithotripsy H/O: knee surgery History of ankle surgery Hx of section Family History Mother Diabetes Hypertension Fibromyalgia Arthritis Father Stomach cancer Diabetes Hypertension Blind Sister Arthritis Sister No problems noted. Brother No problems noted. Son No problems noted. 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 Still waiting for technology engineer referral for possible hysterectomy for fibroid uterus. Will text me results of her meeting with PCP joshua IBARRA - discussed that this will often rise 1st year after bariatric surgery but she does need treatment at this time. Will have Vit A,D, B1 and CBC redrawn now. Meal plan - change timing of meals to have better intervals between meals. 8am- 2oz and 1 oz each veg and fruit 12pm- shake 4:30- half bar or half yogurt 8pm dinner 2 oa and 1 oz Exercise - add 5th day fo sit to stand videos Next appt with me in 3 months for 1 year office appt. Patient is still obese and is not considered stable at this time. I spent 30 minutes in total speaking with the patient via video conference counseling , reviewing records and charting in patients chart. . (2) S/P laparoscopic sleeve gastrectomy: Code(s): Z98.84 - Bariatric surgery status Orders: Orders Vitamin A Today Z98.84 - Bariatric surgery status Vitamin B1 Today Z98.84 - Bariatric surgery status Complete Blood Count Auto Diff Today Z90.3 - Acquired absence of stomach [part of] Vitamin D 25-OH Total Today Z90.3 - Acquired absence of stomach [part of] Telehealth Telehealth Location of provider rendering services: practice address Location of patient: address on file Patient Identification confirmed using: Name, : Yes Telehealth method: video Patient verbally consented to treatment: Yes Patient verbally consented to billing insurance company: Yes Coding Level of Care Code Tele Est Pt Level 4 (44518) Diagnoses Obesity E66.9 S/P laparoscopic sleeve gastrectomy Z98.84
[2023-08-02 15:17] VITALS: BMI 33.8
== END 2023-08-02 15:42 | disposition home or self-care (01) ==
LOC: HO.HBS 15:32
PROVIDERS: PCP Internal Medicine; Visit Provider Physician Assistant
DX: E66.9 Obesity, unspecified (principal); Z98.84 Bariatric surgery status
CPT/HCPCS: 99214

== ENCOUNTER → 2023-08-02 15:00 | Outpatient (BNVA) | payer MEDICAID, SELFPAY | PROVIDERS: PCP Internal Medicine; Visit Provider Physician Assistant | DX: Z90.3 Acquired absence of stomach [part of] (principal); E66.9 Obesity, unspecified; Z98.84 Bariatric surgery status; K74.00 Hepatic fibrosis, unspecified; D64.9 Anemia, unspecified; E66.01 Morbid (severe) obesity due to excess calories; L98.7 Excessive and redundant skin and subcutaneous tissue ==

== ENCOUNTER 2023-11-10 09:26 | Outpatient (AMB) | payer MEDICAID, SELFPAY ==
--- NOTE | 2023-11-10 09:33 | MHC.OFFVISWM ---
Intake VS Expanded 11/10/23 09:49 BP 137/72 Blood Pressure Location Rt brachial Blood Pressure Position Sitting Pulse 88 Pulse Source Pulse Oximeter Temp 97.8 F Temperature Source Temporal Artery Scan Pulse Oximetry 100 Oxygen Delivery Method Room Air Height 4 ft 3 in Weight 109 lb BMI 29.5 Body Fat % 30.2 Body Fat Mass 328 Fat Free Mass 76.0 Visceral Fat Rating 6.0 Body Water % 50.0 Body Water Mass 54.4 Muscle Mass/Score 72.0 Basal Metabolic Rate/Score 1,071 Intake Visit Reasons: (OV) PO LSG 11/10/22 Allergies aspirin [ASPIRIN] Allergy (Severe, Verified 11/10/23 09:38) RED/SWELLING-FACIAL, swelling Medication List - Last Reconciled 11/10/23 by JOURDAN Perry-Sarah atorvastatin 20 mg PO DAILY calcium citrate 200 mg PO BID cetirizine 10 mg PO DAILY cholecalciferol (vitamin D3) 25 mcg PO DAILY 90 days gabapentin mg PO iron,carbonyl-vitamin C 65 mg iron- 125 mg (Vitron-C) 1 tab PO DAILY vitamin A palmitate 3,000 mcg PO DAILY HPI HPI Comments History of Present Illness Details Pt is now 1 year s/p LSG, CATERING SOUS CHEF weight of 264 lbs, TBWL is 155 lbs or 59%. No n/v/abd or reflux. Pt compalins of excess skin on upper arms, tehya re very heavy and has chronic rashes and discoloration of skin due to rubbing against her body. This effects her daily activities, exericse and ability to wear normal shirted sleeves. She complains of excess skin on lower abdomen, which due ot the heavy skin gets in her way of exercise and wearing clothing comforatble. She gets pruritic rashes under pannus has been using a powder OTC but it does not work well. The hanging pannus causes excessive sweating, foul odor. Her breasts hang over her abdomen and causes excessive sweating and foul odor under breasts. Post op complications: none CÉSAR: never DMnever HTN:never Hyperlipidemia: on meds GERD: 0 Satisfaction with present condition - satisfied meal plan - 8am - Failrife shake 2-3 pm - 3-4 oz in total. 3 oz protien and 1 oz vegetable 5pm- half bar or 2 tbl yogurt Exercise - has not exercised in last month due to recent Hysterectomy. Normally 30 minutes of videos 4d/week. [facility] Medical History DJD (degenerative joint disease) Elevated cholesterol GERD (gastroesophageal reflux disease) Stone in kidney Surgical History H/O lithotripsy H/O: knee surgery History of ankle surgery Hx of section Family History Mother Diabetes Hypertension Fibromyalgia Arthritis Father Stomach cancer Diabetes Hypertension Blind Sister Arthritis Sister No problems noted. Brother No problems noted. Son No problems noted. Social History Household Members Other:: son 16 year old Are you a primary career representative to a significant other at home: Yes (son) Do you presently have visiting nurse or other home services: No Alcohol intake: never Patient Tobacco Use Status: Former Tobacco user Quit Date: 2009 Tobacco use type: Cigarette service: No Current occupational status: employed Physical Exam Const General: cooperative, healthy appearing, comfortable and no acute distress GI Inspection: Yes incision (all well healed) and Yes Abdominal panniculus present (grade 3, with discoloration under pannus) Extrem Other: significant ecess skin of upper arbs bilaterally, + darkened discloration and fine macular rash. Assessment & Plan Assessment & Plan (1) Overweight (BMI 25.0-29.9): Code(s): E66.3 - Overweight Plan: Amazing weight loss so far! But she now has significant excess skin of abdomen causing her difficulty with daily actviities. Stop OTC powder and now use clotrimazoel 1% cream bid. We discussed keeping skin away form skin while exercising by using cotton gauze or paper towels. Making sure to wash or shower immediately after exercising and dry area well, may use environmental studies department chair. She now has significant excess skin of upper extremities causing her difficulty with daily activities. Needs 50 grams of protein daily and really likes the Fairlife shakes Farilefie shake of another 20 - 25 gram shake in am 2 oz protien and 2 oz veetables half bar of half yogurt Restart exercise videos for 45 minutes 4 d. week now. 12 month labs ordered Next appt in 3 months with me. Patient is overweight and is not considered stable at this time. I spent 30 minutes in total with patient reviewing/updating records, examining the patient and counseling the patient on weight management as detailed above. (2) S/P laparoscopic sleeve gastrectomy: Code(s): Z98.84 - Bariatric surgery status (3) Excess skin: Code(s): L98.7 - Excessive and redundant skin and subcutaneous tissue Plan see above Orders: Orders Insulin Today E66.3 - Overweight, E78.00 - Pure hypercholesterolemia, unspecified, Z98.84 - Bariatric surgery status Hemoglobin A1c Today E66.3 - Overweight, E78.00 - Pure hypercholesterolemia, unspecified, Z98.84 - Bariatric surgery status Lipid Panel Today E66.3 - Overweight, E78.00 - Pure hypercholesterolemia, unspecified, Z98.84 - Bariatric surgery status C Reactive Protein Today E66.3 - Overweight, E78.00 - Pure hypercholesterolemia, unspecified, Z98.84 - Bariatric surgery status Complete Blood Count Auto Diff Today E66.3 - Overweight, E78.00 - Pure hypercholesterolemia, unspecified, Z98.84 - Bariatric surgery status IRON PROFILE Today E66.3 - Overweight, E78.00 - Pure hypercholesterolemia, unspecified, Z98.84 - Bariatric surgery status Comprehensive Met. Panel Today E66.3 - Overweight, E78.00 - Pure hypercholesterolemia, unspecified, Z98.84 - Bariatric surgery status Vitamin B12 and Folate Today E66.3 - Overweight, E78.00 - Pure hypercholesterolemia, unspecified, Z98.84 - Bariatric surgery status Zinc Today E66.3 - Overweight, E78.00 - Pure hypercholesterolemia, unspecified, Z98.84 - Bariatric surgery status Vitamin B1 Today E66.3 - Overweight, E78.00 - Pure hypercholesterolemia, unspecified, Z98.84 - Bariatric surgery status Vitamin A Today E66.3 - Overweight, E78.00 - Pure hypercholesterolemia, unspecified, Z98.84 - Bariatric surgery status TSH reflex Free T4 Today E66.3 - Overweight, E78.00 - Pure hypercholesterolemia, unspecified, Z98.84 - Bariatric surgery status Ferritin Today E66.3 - Overweight, E78.00 - Pure hypercholesterolemia, unspecified, Z98.84 - Bariatric surgery status Vitamin D 25-OH Total Today E66.3 - Overweight, E78.00 - Pure hypercholesterolemia, unspecified, Z98.84 - Bariatric surgery status Medications: New clotrimazole 1% 1 appl topical BID 90 grams 3RF Coding Level of Care Code Est Pt Level 4 (77762) Diagnoses Overweight (BMI 25.0-29.9) E66.3 S/P laparoscopic sleeve gastrectomy Z98.84 Excess skin L98.7
[2023-11-10 09:49] VITALS: BP 137/72; PULSE 88; TEMP 36.6; O2SAT 100; BMI 29.5
== END 2023-11-10 10:13 | disposition home or self-care (01) ==
PROVIDERS: PCP Internal Medicine; Visit Provider Physician Assistant
DX: E66.3 Overweight (principal); Z98.84 Bariatric surgery status; L98.7 Excessive and redundant skin and subcutaneous tissue
CPT/HCPCS: 99214

== ENCOUNTER → 2023-11-10 09:26 | Outpatient (BNVA) | payer MEDICAID, SELFPAY | PROVIDERS: PCP Internal Medicine; Visit Provider Physician Assistant | DX: E66.3 Overweight (principal); L98.7 Excessive and redundant skin and subcutaneous tissue; Z98.84 Bariatric surgery status; Z68.29 Body mass index [BMI] 29.0-29.9, adult | CPT/HCPCS: 99212 ==

== ENCOUNTER 2024-01-06 09:52 | Outpatient (REF) | payer MEDICAID, SELFPAY ==
[2024-01-06 10:15] LABS: MANUAL DIFF FLAG NO
[2024-01-06 10:36] LABS: Basophils Percent Auto 0.8 % (0-2); Eosinophils Absolute Auto 0.1 X10*3/uL (0.0-0.4); Eosinophils Percent Auto 2.5 % (0-4); Hematocrit 38.3 % (37.0-47.0); Hemoglobin 12.5 g/dl (12.0-16.0); Imm Gran Abs Auto 0.01 X10*3/uL (0.00-0.03); Imm Gran Pct Auto 0.2 % (0.0-0.4); Lymphocytes Absolute Auto 1.8 X10*3/uL (1.2-4.9); Lymphocytes Percent Auto 34.3 % (20-40); Mean Corpuscular HGB Conc 32.6 g/dl (31.0-35.0); Mean Corpuscular Hemoglobin 28.3 pg (27.0-33.0); Mean Corpuscular Volume 86.7 fL (80.0-98.0); Mean Platelet Volume 10.8 fL (9.4-12.3); Monocytes Absolute Auto 0.4 X10*3/uL (0.1-1.2); Monocytes Percent Auto 6.7 % (2-11); Neutrophils Absolute Auto 2.9 x10*3/uL (2.0-8.3); Neutrophils Percent Auto 55.5 % (45-73); Platelet Count 209 X10*3/uL (160-400); Red Blood Count 4.42 X10*6/uL (4.20-5.50); Red Cell Distribution Width 14.7 % (11.0-16.0); White Blood Count 5.3 X10*3/uL (4.8-10.8)
[2024-01-06 10:56] LABS: Estimated Average Glucose 80 mg/dL; Hemoglobin A1c % 4.4 % (<6.0)
[2024-01-06 11:15] LABS: Alanine Aminotransferase 31 U/L (0-31); Albumin Level 3.7 g/dL (3.5-5.0); Alkaline Phosphatase 76 U/L (39-117); Anion Gap 12 (12-20); Aspartate Amino Transferase 23 U/L (5-31); Bilirubin Total 0.4 mg/dL (0.0-1.0); Blood Urea Nitrogen 22 mg/dL (9-16); Calcium 8.8 mg/dL (8.4-10.2); Carbon Dioxide 28 mmol/L (22-29); Chloride 104 mmol/L (96-108); Cholesterol 268 mg/dL (<200); Estimated Glomerular Filt Rate > 60; Glucose Random 87 mg/dL (60-115); HDL Cholesterol 47 mg/dL (>40); Iron 66 mcg/dL (30-160); LDL Cholesterol Calculated 208 mg/dL (<100); Percent Iron Saturation 30 % (15-50); Potassium 3.8 mmol/L (3.3-5.1); Sodium 140 mmol/L (135-145); Total Iron Binding Capacity 218 mcg/dL (228-428); Total Protein 6.6 g/dL (6.5-8.0); Triglycerides 69 mg/dL (<150); Unsaturated Iron Binding 152 ug/dL
[2024-01-06 11:35] LABS: Ferritin 48 ng/mL (10-250); Insulin 3 uU/mL (2-29)
[2024-01-06 11:39] LABS: Folate 15.7 ng/mL (> or = 4.0); Vitamin B12 1990 pg/mL (200-900)
[2024-01-10 03:09] LABS: Zinc 90 mcg/dL (60-130)
[2024-01-10 17:24] LABS: Vitamin A 29 mcg/dL (38-98)
[2024-01-13 17:24] LABS: Vitamin B1 <6 nmol/L (8-30)
== END 2024-01-06 09:53 | disposition home or self-care (01) ==
LOC: HO.LAB 09:52
PROVIDERS: PCP Internal Medicine; Visit Provider Physician Assistant
DX: E66.3 Overweight (principal); E78.00 Pure hypercholesterolemia, unspecified; Z98.84 Bariatric surgery status
CPT/HCPCS: 36415; 80053; 80061; 82306; 82607; 82728; 82746; 83036; 83525; 83540; 84425; 84443; 84590; 84630; 85025; 86140

== ENCOUNTER 2024-02-02 09:13 | Outpatient (AMB) | payer MEDICAID, SELFPAY ==
--- NOTE | 2024-02-02 09:16 | A.OFFVIS_ITS ---
Intake VS Expanded 02/02/24 09:41 BP 127/65 Blood Pressure Location Rt brachial Blood Pressure Position Sitting Pulse 70 Pulse Source Pulse Oximeter Temp 97.8 F Temperature Source Temporal Artery Scan Pulse Oximetry 99 Oxygen Delivery Method Room Air Height 4 ft 3 in Weight 104 lb 9.6 oz BMI 28.3 Body Fat % 28.1 Body Fat Mass 29.4 Fat Free Mass 75.2 Visceral Fat Rating 5.0 Body Water % 51.5 Body Water Mass 53.8 Muscle Mass/Score 23.8 Basal Metabolic Rate/Score 1,055 Intake Visit Reasons: (OV) PO LSG 11/10/22 Allergies aspirin [ASPIRIN] Allergy (Severe, Verified 02/02/24 09:44) RED/SWELLING-FACIAL, swelling Medication List - Last Reconciled 02/02/24 by JOURDAN Perry-Sarah atorvastatin 40 mg PO DAILY calcium citrate 200 mg PO BID cetirizine 10 mg PO DAILY cholecalciferol (vitamin D3) 25 mcg PO DAILY 90 days gabapentin mg PO iron,carbonyl-vitamin C 65 mg iron- 125 mg (Vitron-C) 1 tab PO DAILY ketoconazole 2% 1 appl topical BID vitamin A palmitate 3,000 mcg PO DAILY HPI HPI Comments History of Present Illness Details 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 Pt c/o o f excess skin of legs and upper arms and pannus - gerts intermittent rashes in skin folds uses ketoconazole cream bid - not always effective. Aslo has trouble fitting nto clothes and rubbing and irritation of excess skin of extremities. Meal plan: 6am, bed at 11 pm. 8am - [employer] shake 12 pm - 1pm - 1/4 - 1/2 bar and 2 tbl yo gurt 3 pm - 2 oz protein and 2 oz vegetable 7pm - 2 oz protein and 2 veg Exercise - treadmill - speed 1.5 (due to ankles), no inclien 2-3 d/week - [address] videos 15 minutes - 3d/week [facility] Medical History DJD (degenerative joint disease) Elevated cholesterol GERD (gastroesophageal reflux disease) Stone in kidney Surgical History H/O lithotripsy H/O: knee surgery History of ankle surgery Hx of section Family History Mother Diabetes Hypertension Fibromyalgia Arthritis Father Stomach cancer Diabetes Hypertension Blind Sister Arthritis Sister No problems noted. Brother No problems noted. Son No problems noted. 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 Need to change meal and exercise plans Meal - 8am - 1/2 shake 11 am - 1/2 shake 2pm- 2 oz and 2 oz _ or can have full bar instead 6pm - 2 oz and 2 oz Exercise - can not do much on treadmill due to ankle injry. Kimberly roach - 30 minutes 4 d/week treadmill 60 minutes 3 d/ week Pt will text me this week with progress. Patient is overweight and is not considered stable at this time. I spent 30 minutes in total with patient reviewing/updating records, examining the patient and counseling the patient on weight management as detailed above. (2) Excess skin: Code(s): L98.7 - Excessive and redundant skin and subcutaneous tissue Plan: Will continue her good hygiene practices. (3) Panniculitis: Code(s): M79.3 - Panniculitis, unspecified Plan: Continue good hygiene practices and ketoconazole Coding Level of Care Code Est Pt Level 4 (89294) Diagnoses Overweight (BMI 25.0-29.9) E66.3 Excess skin L98.7 Panniculitis M79.3
[2024-02-02 09:41] VITALS: BP 127/65; PULSE 70; TEMP 36.6; O2SAT 99; BMI 28.3
== END 2024-02-02 10:04 | disposition home or self-care (01) ==
PROVIDERS: PCP Internal Medicine; Visit Provider Physician Assistant
DX: E66.3 Overweight (principal); L98.7 Excessive and redundant skin and subcutaneous tissue; M79.3 Panniculitis, unspecified
CPT/HCPCS: 99214

== ENCOUNTER → 2024-02-02 09:13 | Outpatient (BNVA) | payer MEDICAID, SELFPAY | PROVIDERS: PCP Internal Medicine; Visit Provider Physician Assistant | DX: E66.3 Overweight (principal); L98.7 Excessive and redundant skin and subcutaneous tissue; M79.3 Panniculitis, unspecified; Z98.84 Bariatric surgery status; Z68.28 Body mass index [BMI] 28.0-28.9, adult | CPT/HCPCS: 99212 ==

== ENCOUNTER 2024-04-05 09:49 | Outpatient (AMB) | payer MEDICAID, SELFPAY ==
--- NOTE | 2024-04-05 09:55 | A.OFFVIS_ITS ---
Intake Visit Reasons: (OV) PO LSG 11/10/22 Allergies aspirin [ASPIRIN] Allergy (Severe, Verified 02/02/24 09:44) RED/SWELLING-FACIAL, swelling HPI Comments Details: 1 year 5 months post op LSG. There has been a [] pound weight loss,(initial weight 264 pounds) since starting the program on 11/10/2021 reflecting a []% total body weight loss and a weight loss of [] pounds since surgery (operative weight 206.3 pounds) reflecting a []% TBWL since surgery. Pt c/o of excess skin of legs and upper arms and pannus - gets intermittent rashes in skin folds uses ketoconazole cream bid - not always effective. Aslo has trouble fitting into clothes and rubbing and irritation of excess skin of extremities. Meal - 8am - 1/2 shake 11 am - 1/2 shake 2pm- 2 oz and 2 oz _ or can have full bar instead 6pm - 2 oz and 2 oz Exercise - can not do much on treadmill due to ankle injry. Kimberly Pathak videos - 30 minutes 4 d/week treadmill 60 minutes 3 d/ week [facility] Medical History DJD (degenerative joint disease) Elevated cholesterol GERD (gastroesophageal reflux disease) Stone in kidney Surgical History H/O lithotripsy H/O: knee surgery History of ankle surgery Hx of section Family History Mother Diabetes Hypertension Fibromyalgia Arthritis Father Stomach cancer Diabetes Hypertension Blind Sister Arthritis Sister No problems noted. Brother No problems noted. Son No problems noted. Social History Household Members Other:: son 16 year old Are you a primary critical care unit nurse to a significant other at home: Yes (son) Do you presently have visiting nurse or other home services: No Alcohol intake: never Patient Tobacco Use Status: Former Tobacco user Quit Date: 2009 Tobacco use type: Cigarette service: No Current occupational status: employed
--- NOTE | 2024-04-05 10:12 | MHC.OFFVISWM ---
VS Expanded 04/05/24 10:17 BP 112/69 Blood Pressure Location Rt brachial Blood Pressure Position Sitting Pulse 76 Pulse Source Pulse Oximeter Temp 96.7 F L Temperature Source Tympanic Pulse Oximetry 99 Oxygen Delivery Method Room Air Height 4 ft 3 in Weight 105 lb 3.2 oz BMI 28.4 Body Fat % 26.4 Body Fat Mass 27.8 Fat Free Mass 77.4 Visceral Fat Rating 5.0 Body Water % 52.6 Body Water Mass 55.4 Muscle Mass/Score 73.4 Basal Metabolic Rate/Score 1,076 Intake Visit Reasons: (OV) PO LSG 11/10/22 President And Chief Executive Officer Required: Yes President And Chief Executive Officer Name: office cmi Allergies aspirin [ASPIRIN] Allergy (Severe, Verified 04/05/24 10:21) RED/SWELLING-FACIAL, swelling Medication List - Last Reconciled 04/05/24 by JOURDAN Saini atorvastatin 40 mg PO DAILY calcium citrate 200 mg PO BID cetirizine 10 mg PO DAILY cholecalciferol (vitamin D3) 25 mcg PO DAILY 90 days clotrimazole 1% (Antifungal (clotrimazole)) 1 appl topical BID gabapentin mg PO iron,carbonyl-vitamin C 65 mg iron- 125 mg (Vitron-C) 1 tab PO DAILY vitamin A palmitate 3,000 mcg PO DAILY HPI Comments Details: This?a?38?yo female who is s/p LSG without hiatal hernia repair on?11/10/2022. Presents for 1 year 5 month post op visit. Weight today is 105.2 pounds, with a BMI of 28.4. There has been a 158.8 pound weight loss,(initial weight 264 pounds) since starting the program on 11/10/2021 reflecting a 60.1 % total body weight loss and a weight loss of 101.1 pounds since surgery (operative weight 206.3 pounds) reflecting a 49 % TBWL since surgery. No complaints of nausea, emesis, abdominal pain or reflux. Reports infrequent but normal bowel movements every 1-2 days and uses stool softeners regularly. She additionally has had excess skin of the abdomen, arms and thighs. She has had to use topical prescription antifungal cream for recurrent rash. She had difficulty fitting into clothing. The skin rubs causing pain. She has had to increase her hygiene habits just to maintain skin integrity. She states that she just finished the last of the clotrimazole cream last week and has no further refills. Present meal plan includes: using Wote 30 gm shake Meal - 8am - 1/2 shake 11 am - 1/2 shake 2pm- 2-3 oz protein and 1-2 oz veg 6pm - 2 oz and 2 oz Exercise can't do daily due to ankle pain treadmill at home 2-3 days per week. 40-50 alyssa video at home 3-4 days per week. could join a gym [facility] Medical History Elevated cholesterol DJD (degenerative joint disease) GERD (gastroesophageal reflux disease) Stone in kidney Surgical History H/O lithotripsy H/O: knee surgery History of ankle surgery Hx of section Family History Mother Diabetes Hypertension Fibromyalgia Arthritis Father Stomach cancer Diabetes Hypertension Blind Sister Arthritis Sister No problems noted. Brother No problems noted. Son No problems noted. Social History Household Members Other:: son 16 year old Are you a primary cattle care worker to a significant other at home: Yes (son) Do you presently have visiting nurse or other home services: No Alcohol intake: never Patient Tobacco Use Status: Former Tobacco user Quit Date: 2009 Tobacco use type: Cigarette service: No Current occupational status: employed Physical Exam Const General: healthy appearing and no acute distress Resp Effort & Inspection: normal respiratory effort Auscultation: clear to auscultation bilaterally Cardio Rate: regular rate Rhythm: regular rhythm GI Auscultation: normal bowel sounds Skin Other: Grade 2 abdominal pannus with evidence of discolored skin of previous rash. Currently no open area. Excess skin of bilateral arms with noted irritation in the axillary region. Extrem General: Yes normal to inspection Assessment & Plan Assessment & Plan (1) Overweight (BMI 25.0-29.9): Code(s): E66.3 - Overweight Category: Medical Plan: Patient will continue her current meal plan although use 2 oz of protein in 2 oz of vegetables, x2 for her meals. She will continue her Jiff life shake and water. She certainly may have some fresh fruit if she wishes. She has lost significant weight, greater than 60% of her total body weight since initiating the program and as a result has developed significant excess skin of her arms and abdomen. Encouraged to join a gym and utilize the recumbent bike for exercise as she is limited due to her chronic ankle pain using her treadmill at home. She states she will do this. We will additionally check 18 month postop labs. She has had elevated vitamin B12 and low vitamin-A but has been supplementing. She continues to take a multivitamin daily. (2) Excess skin: Code(s): L98.7 - Excessive and redundant skin and subcutaneous tissue Category: Medical Plan: Given her significant weight loss since initiating the program of 158.8 lb or 60.1% total body weight loss she has developed significant excess skin. This has caused a negative impact on her activities of daily living, requiring increased hygiene, special clothing, she has pain and discomfort with increased activity of her arms including overhead activity due to the excess skin. She has developed rashes to the axillary and abdominal area under her pannus that is improved with prescription antifungal medications although recurs. She is appropriate for medically necessary skin removal surgery and we will send pictures to her insurance company for approval. She has maintained a stable weight over the last 4 months, in fact she has continued to lose some weight. Orders: Orders Lipid Panel Today D64.9 - Anemia, unspecified, E66.3 - Overweight, E78.00 - Pure hypercholesterolemia, unspecified, K74.00 - Hepatic fibrosis, unspecified Vitamin B1 Today D64.9 - Anemia, unspecified, E66.3 - Overweight, E78.00 - Pure hypercholesterolemia, unspecified, K74.00 - Hepatic fibrosis, unspecified Vitamin A Today D64.9 - Anemia, unspecified, E66.3 - Overweight, E78.00 - Pure hypercholesterolemia, unspecified, K74.00 - Hepatic fibrosis, unspecified Ferritin Today D64.9 - Anemia, unspecified, E66.3 - Overweight, E78.00 - Pure hypercholesterolemia, unspecified, K74.00 - Hepatic fibrosis, unspecified Basic Metabolic Panel Today D64.9 - Anemia, unspecified, E66.3 - Overweight, E78.00 - Pure hypercholesterolemia, unspecified, K74.00 - Hepatic fibrosis, unspecified Insulin Today D64.9 - Anemia, unspecified, E66.3 - Overweight, E78.00 - Pure hypercholesterolemia, unspecified, K74.00 - Hepatic fibrosis, unspecified Hemoglobin A1c Today D64.9 - Anemia, unspecified, E66.3 - Overweight, E78.00 - Pure hypercholesterolemia, unspecified, K74.00 - Hepatic fibrosis, unspecified Complete Blood Count Auto Diff Today D64.9 - Anemia, unspecified, E66.3 - Overweight, E78.00 - Pure hypercholesterolemia, unspecified, K74.00 - Hepatic fibrosis, unspecified IRON PROFILE Today D64.9 - Anemia, unspecified, E66.3 - Overweight, E78.00 - Pure hypercholesterolemia, unspecified, K74.00 - Hepatic fibrosis, unspecified Vitamin B12 and Folate Today D64.9 - Anemia, unspecified, E66.3 - Overweight, E78.00 - Pure hypercholesterolemia, unspecified, K74.00 - Hepatic fibrosis, unspecified Zinc Today D64.9 - Anemia, unspecified, E66.3 - Overweight, E78.00 - Pure hypercholesterolemia, unspecified, K74.00 - Hepatic fibrosis, unspecified C Reactive Protein Today D64.9 - Anemia, unspecified, E66.3 - Overweight, E78.00 - Pure hypercholesterolemia, unspecified, K74.00 - Hepatic fibrosis, unspecified TSH reflex Free T4 Today D64.9 - Anemia, unspecified, E66.3 - Overweight, E78.00 - Pure hypercholesterolemia, unspecified, K74.00 - Hepatic fibrosis, unspecified Vitamin D 25-OH Total Today D64.9 - Anemia, unspecified, E66.3 - Overweight, E78.00 - Pure hypercholesterolemia, unspecified, K74.00 - Hepatic fibrosis, unspecified Medications: New clotrimazole 1% (Antifungal (clotrimazole)) 1 appl topical BID 45 grams 5RF Discontinued ketoconazole 2% Discontinued Reason: Patient no longer taking 1 appl topical BID 60 grams 2RF
[2024-04-05 10:17] VITALS: BP 112/69; PULSE 76; TEMP 35.9; O2SAT 99; BMI 28.4
== END 2024-04-05 10:47 | disposition home or self-care (01) ==
PROVIDERS: PCP Internal Medicine; Referring Provider Internal Medicine; Visit Provider Physician Assistant Surgical
DX: E66.3 Overweight (principal); L98.7 Excessive and redundant skin and subcutaneous tissue
CPT/HCPCS: 99214

== ENCOUNTER → 2024-04-05 09:49 | Outpatient (BNVA) | payer MEDICAID, SELFPAY | PROVIDERS: PCP Internal Medicine; Visit Provider Physician Assistant Surgical | DX: E66.3 Overweight (principal); Z68.28 Body mass index [BMI] 28.0-28.9, adult; L98.7 Excessive and redundant skin and subcutaneous tissue; E78.00 Pure hypercholesterolemia, unspecified; Z98.84 Bariatric surgery status | CPT/HCPCS: 99212 ==

== ENCOUNTER 2024-04-08 09:19 | Outpatient (REF) | payer MEDICAID, SELFPAY ==
[2024-04-08 09:57] LABS: MANUAL DIFF FLAG NO
[2024-04-08 10:29] LABS: Basophils Percent Auto 0.6 % (0-2); Eosinophils Absolute Auto 0.1 X10*3/uL (0.0-0.4); Eosinophils Percent Auto 1.8 % (0-4); Hematocrit 38.2 % (37.0-47.0); Hemoglobin 12.8 g/dl (12.0-16.0); Imm Gran Abs Auto 0.02 X10*3/uL (0.00-0.03); Imm Gran Pct Auto 0.4 % (0.0-0.4); Lymphocytes Absolute Auto 1.8 X10*3/uL (1.2-4.9); Lymphocytes Percent Auto 36.2 % (20-40); Mean Corpuscular HGB Conc 33.5 g/dl (31.0-35.0); Mean Corpuscular Volume 86.4 fL (80.0-98.0); Mean Platelet Volume 11.1 fL (9.4-12.3); Monocytes Absolute Auto 0.3 X10*3/uL (0.1-1.2); Monocytes Percent Auto 5.2 % (2-11); Neutrophils Absolute Auto 2.8 x10*3/uL (2.0-8.3); Neutrophils Percent Auto 55.8 % (45-73); Platelet Count 210 X10*3/uL (160-400); Red Blood Count 4.42 X10*6/uL (4.20-5.50); Red Cell Distribution Width 14.5 % (11.0-16.0)
[2024-04-08 10:38] LABS: Estimated Average Glucose 85 mg/dL; Hemoglobin A1c % 4.6 % (<6.0)
[2024-04-08 11:04] LABS: Anion Gap 14 (12-20); Blood Urea Nitrogen 21 mg/dL (9-16); C Reactive Protein 0.16 mg/dL (< or = 0.50); Calcium 9.5 mg/dL (8.4-10.2); Carbon Dioxide 24 mmol/L (22-29); Chloride 107 mmol/L (96-108); Cholesterol 186 mg/dL (<200); Estimated Glomerular Filt Rate > 60; Glucose Random 83 mg/dL (60-115); HDL Cholesterol 50 mg/dL (>40); Iron 87 mcg/dL (30-160); LDL Cholesterol Calculated 126 mg/dL (<100); Percent Iron Saturation 36 % (15-50); Potassium 4.1 mmol/L (3.3-5.1); Sodium 141 mmol/L (135-145); Total Iron Binding Capacity 241 mcg/dL (228-428); Triglycerides 52 mg/dL (<150); Unsaturated Iron Binding 154 ug/dL
[2024-04-08 11:26] LABS: Ferritin 44 ng/mL (10-250); Insulin 3 uU/mL (2-29); TSH reflex Free T4 0.54 uIU/mL (0.32-4.0); Vitamin D 25-OH Total 34.9 ng/mL (>30)
[2024-04-08 11:42] LABS: Folate 16.5 ng/mL (> or = 4.0); Vitamin B12 1974 pg/mL (200-900)
[2024-04-11 10:43] LABS: Vitamin A 24 mcg/dL (38-98)
[2024-04-11 16:43] LABS: Zinc 80 mcg/dL (60-130)
[2024-04-12 14:34] LABS: Vitamin B1 <6 nmol/L (8-30)
== END 2024-04-08 09:20 | disposition home or self-care (01) ==
LOC: HO.LAB 09:19
PROVIDERS: PCP Internal Medicine; Visit Provider Physician Assistant Surgical
DX: E66.3 Overweight (principal); D64.9 Anemia, unspecified; K74.00 Hepatic fibrosis, unspecified; E78.00 Pure hypercholesterolemia, unspecified
CPT/HCPCS: 36415; 80048; 80061; 82306; 82607; 82728; 82746; 83036; 83525; 83540; 84425; 84443; 84590; 84630; 85025; 86140

== ENCOUNTER 2024-04-26 07:54 | Outpatient (AMB) | payer MEDICAID, SELFPAY ==
--- NOTE | 2024-04-26 11:35 | MHC.OFFVISWM ---
VS Expanded 04/26/24 11:36 Height 4 ft 3 in Weight 103 lb 7 oz BMI 28.0 Intake Visit Reasons: TV Pre Op Panni/Brachio 05/14/24 *INDUSTRIAL HYGIENE TECHNICIAN* Allergies aspirin [ASPIRIN] Allergy (Severe, Verified 04/26/24 11:43) RED/SWELLING-FACIAL, swelling Medication List - Last Reconciled 04/26/24 by Darrian Miner MD atorvastatin 40 mg PO DAILY calcium citrate 200 mg PO BID cephalexin 500 mg PO Q12H cetirizine 10 mg PO DAILY cholecalciferol (vitamin D3) 25 mcg PO DAILY 90 days clotrimazole 1% (Antifungal (clotrimazole)) 1 appl topical BID docusate sodium (Colace) 100 mg PO DAILY iron,carbonyl-vitamin C 65 mg iron- 125 mg (Vitron-C) 1 tab PO DAILY thiamine HCl (vitamin B1) 100 mg PO DAILY 90 days vitamin A palmitate 3,000 mcg PO DAILY HPI HPI TV Pre Op Panni/Brachio 05/14/24 *INDUSTRIAL HYGIENE TECHNICIAN*: Details: Start time: 11.30am, End time: 11.50am ?I spent 15 minutes speaking with the patient on the phone plus an additional 5 minutes reviewing and updating records for a total of 20 minutes HPI Comments Details: Overall weight loss: 160.3lbs, or 60.7% TBWL Is doing one [employer] shake, 2 meal (2oz of protein and 2oz of salad/vegetables) PFSH Medical History Elevated cholesterol DJD (degenerative joint disease) GERD (gastroesophageal reflux disease) Stone in kidney Surgical History H/O lithotripsy H/O: knee surgery History of ankle surgery Hx of section Family History Mother Diabetes Hypertension Fibromyalgia Arthritis Father Stomach cancer Diabetes Hypertension Blind Sister Arthritis Sister No problems noted. Brother No problems noted. Son No problems noted. Social History Household Members Other:: son 16 year old Are you a primary health care assistant to a significant other at home: Yes (son) Do you presently have visiting nurse or other home services: No Alcohol intake: never Patient Tobacco Use Status: Former Tobacco user Tobacco use type: Cigarette service: No Current occupational status: employed Telehealth Telehealth Telehealth Platform: Telephone Location of provider rendering services: practice address Location of patient: address on file Patient Identification confirmed using: Name, : Yes Telehealth method: voice only Patient verbally consented to treatment: Yes Patient verbally consented to billing insurance company: Yes Patient informed of any privacy concerns related to visit: Yes Minutes spent on Phone/Video with Pt.: 20 Assessment & Plan Assessment & Plan (1) Excess skin: Code(s): L98.7 - Excessive and redundant skin and subcutaneous tissue Category: Medical Plan: 1. Plan for bilateral brachioplasty and panniculectomy. Risks of infection, bleeding, asymmetry, wound dehiscence and blood clots were discussed with the patient. 2. You will have a drain the abdomen that may stay a few weeks before it may be removed 3. You will need to be doing sponge baths the first 1-2 weeks. No showers. You need to have help at home to get you up and limit your activities as much as possible for at least the 4-6 weeks after surgery 4. We will arrange for a visiting nurse to come at home to help you with dressing changes and send me pictures of the procedures. We will send at your home supplies for the dressing changes. 5. Change nutritional plan to 3 Fairlife premade protein shakes (mix 2oz of Fairlife milk per shake with 6oz almond milk) at 8am-10am, 11am-1pm and 2pm-4pm, dinner at 5pm (2oz meat and 2oz salad or vegetables) and one more Fairlife milk (2oz of Fairlife shake plus 6oz almond milk) at 7pm-9pm. This will improve weight loss and healing after surgery. 6. Continue all vitamins 7. Stop Cyclobezaprine on Monday12/26/22 and Meloxicam tomorrow 12/22/22. 8. Do blood work not fasting any day between Monday04/29/24 and Monday05/03/24 and nut picker the antibiotic prescription from your pharmacy 9. Risks and complications were discussed the possibility of bleeding that may require transfusion, loss of the umbilicus, wound dehiscence or infection, dog ears , flap asymmetry. We also discussed the importance of strict avoidance of weight lifting. 10. Avoid aspirin, motrin, ibuprofen, Aleve, Advil, Naproxyn. Only Tylenol is OK Orders: Orders Prothrombin Time INR Today Z01.818 - Encounter for other preprocedural examination Type and Screen Today Z01.818 - Encounter for other preprocedural examination Partial Thromboplastin Time Today Z01.818 - Encounter for other preprocedural examination Medications: New cephalexin 500 mg PO Q12H 60 caps 2RF M79.3 - Panniculitis, unspecified docusate sodium (Colace) 100 mg PO DAILY 90 caps 0RF K59.00 - Constipation, unspecified
[2024-04-26 11:36] VITALS: BMI 28.0
== END 2024-04-26 11:51 | disposition home or self-care (01) ==
LOC: HO.HBS 07:54
PROVIDERS: PCP Internal Medicine; Visit Provider Surgery
DX: L98.7 Excessive and redundant skin and subcutaneous tissue (principal)
CPT/HCPCS: 99213

== ENCOUNTER → 2024-04-26 07:54 | Outpatient (BNVA) | payer MEDICAID, SELFPAY | PROVIDERS: PCP Internal Medicine; Visit Provider Surgery ==

== ENCOUNTER → 2024-05-10 07:54 | Outpatient (BNVA) | payer MEDICAID, SELFPAY | PROVIDERS: PCP Internal Medicine; Visit Provider Physician Assistant Surgical ==

== ENCOUNTER 2024-05-14 05:56 | Day surgery (SDC) | payer MEDICAID, SELFPAY ==
[2024-04-27 10:58] LABS: INTERNATIONAL NORM RATIO 1.1 (0.9-1.1); Prothrombin Time 12.8 SEC (11.1-13.3)
[2024-04-27 11:01] LABS: Partial Thromboplastin Time 31.8 SEC (26.0-36.8)
[2024-05-01 10:59] VITALS: BMI 28.0
--- NOTE | 2024-05-13 09:15 | P.CONAN_ITS ---
Documented by User: Antionette Galvan NP 05/13/24 09:23 HPI - Anesthesia Eval Consult details Narrative: 38yo F for Bilateral Brachioplasty, Panniculectomy s/p gastric sleeve 2021 [facility] Active Problems Active Problems: All Active Problems Panniculitis (Acute) S/P laparoscopic hysterectomy (Acute) Overweight (BMI 25.0-29.9) (Acute) Excess skin (Acute) Anemia (Acute) Obesity (Acute) Constipation (Acute) Congenital intra-abdominal adhesions (Acute) S/P laparoscopic sleeve gastrectomy (Acute) Liver fibrosis (Acute) Hypercholesteremia (Acute) Snoring (Acute) Daytime somnolence (Acute) Morbid obesity (Acute) DJD (degenerative joint disease) (Acute) GERD (gastroesophageal reflux disease) (Acute) Past Medical History Medical History Elevated cholesterol DJD (degenerative joint disease) GERD (gastroesophageal reflux disease) Stone in kidney Family History Family History Mother Diabetes Hypertension Fibromyalgia Arthritis Father Stomach cancer Diabetes Hypertension Blind Sister Arthritis Sister No problems noted. Brother No problems noted. Son No problems noted. Family history of problems with anesthesia: No Surgical History Surgical History Hx of hysterectomy History of sleeve gastrectomy H/O lithotripsy H/O: knee surgery History of ankle surgery Hx of section History of Problems with Anesthesia: No Social History Social History Household Members Other:: son-age 18 Are you a primary before and after school daycare worker to a significant other at home: No Do you presently have visiting nurse or other home services: No Alcohol intake: never Patient Tobacco Use Status: Former Tobacco user Tobacco use type: Cigarette Years Smoked: 1 Use of substances other than those prescribed or required for medical reasons: No Have you been hit, kicked, punched, or otherwise hurt by someone within the past year? If so, by whom?: No Are you DNR?: No Advance Directives: No Advance Directives Information Provided: Yes Advance Directives on File: No Recently lost weight without trying: No Eating poorly because of decreased appetite: No Nutrition Risks: No Nutritional Risk Patient : No (had hysterectomy 08/2023) FDLMP: N/A : No Poor oral hygiene: No service: No Current occupational status: employed Meds Allergies Allergy/AdvReac Type Severity Reaction Status Date / Time aspirin [ASPIRIN] Allergy Severe severe Verified 05/01/24 10:53 facial swelling/redness Home Medications ?Medication ?Instructions ?Recorded ?Confirmed ?Last Taken ?Type cetirizine 10 mg tablet 10 mg PO DAILY 08/10/22 05/14/24 05/13/24 History iron,carbonyl 65 mg-vitamin C 125 1 tab PO DAILY 11/10/23 05/14/24 05/13/24 History mg tablet,delayed release (Vitron-C) atorvastatin 20 mg tablet 40 mg PO BEDTIME 02/02/24 05/14/24 05/13/24 History Exam Height,Weight and Vital Signs: Height 4 ft 3 in Weight 46.918 kg Pertinent Lab Results Pertinent Lab Results: Laboratory Tests 04/27/24 04/27/24 09:43 09:50 PT 12.8 INR 1.1 APTT 31.8 Blood Type Cancelled Antibody Screen Cancelled Laboratory Tests 04/08/24 09:45 WBC 5.0 Hgb 12.8 Hct 38.2 Plt Count 210 Sodium 141 Potassium 4.1 Chloride 107 Carbon Dioxide 24 BUN 21 H Creatinine 0.56 Assessment and Plan Assessment Anesthesia Assessment: Chart Reviewed Final Anesthetic Review Family History of Problems with Anesthesia: No History of Problems with Anesthesia: No Documented by User: Zayra Zhao MD 05/14/24 09:14 HPI - Anesthesia Eval Consult details Narrative: 38yo F for Bilateral Brachioplasty, Panniculectomy s/p sleeve gastrectomy 11/10/2022 [facility] Active Problems Active Problems: All Active Problems Panniculitis (Acute) S/P laparoscopic hysterectomy (Acute) Overweight (BMI 25.0-29.9) (Acute) Excess skin (Acute) Anemia (Acute) Constipation (Acute) Congenital intra-abdominal adhesions (Acute) S/P laparoscopic sleeve gastrectomy (Acute) Liver fibrosis (Acute) Hypercholesteremia (Acute) Snoring (Acute) Daytime somnolence (Acute) DJD (degenerative joint disease) (Acute) GERD (gastroesophageal reflux disease) (Acute) Past Medical History Medical History Elevated cholesterol DJD (degenerative joint disease) GERD (gastroesophageal reflux disease) Stone in kidney Family History Family History Mother Diabetes Hypertension Fibromyalgia Arthritis Father Stomach cancer Diabetes Hypertension Blind Sister Arthritis Sister No problems noted. Brother No problems noted. Son No problems noted. Family history of problems with anesthesia: No Surgical History Surgical History Hx of hysterectomy History of sleeve gastrectomy H/O lithotripsy H/O: knee surgery History of ankle surgery Hx of section History of Problems with Anesthesia: No Social History Social History Household Members Other:: son-age 18 Are you a primary before and after school daycare worker to a significant other at home: No Do you presently have visiting nurse or other home services: No Alcohol intake: never Patient Tobacco Use Status: Former Tobacco user Tobacco use type: Cigarette Years Smoked: 1 Use of substances other than those prescribed or required for medical reasons: No Have you been hit, kicked, punched, or otherwise hurt by someone within the past year? If so, by whom?: No Are you DNR?: No Advance Directives: No Advance Directives Information Provided: Yes Advance Directives on File: No Recently lost weight without trying: No Eating poorly because of decreased appetite: No Nutrition Risks: No Nutritional Risk Patient : No (had hysterectomy 08/2023) FDLMP: N/A : No Poor oral hygiene: No service: No Current occupational status: employed Meds Allergies Allergy/AdvReac Type Severity Reaction Status Date / Time aspirin [ASPIRIN] Allergy Severe severe Verified 05/01/24 10:53 facial swelling/redness Home Medications ?Medication ?Instructions ?Recorded ?Confirmed ?Last Taken ?Type cetirizine 10 mg tablet 10 mg PO DAILY 08/10/22 05/14/24 05/13/24 History iron,carbonyl 65 mg-vitamin C 125 1 tab PO DAILY 11/10/23 05/14/24 05/13/24 History mg tablet,delayed release (Vitron-C) atorvastatin 20 mg tablet 40 mg PO BEDTIME 02/02/24 05/14/24 05/13/24 History Exam Height,Weight and Vital Signs: Height 4 ft 3 in Weight 46.918 kg Vital Signs Temp Pulse Resp BP Pulse Ox O2 Del Method 05/14/24 06:56 97.3 F 84 16 111/56 L 100 Room Air Airway Mallampati Class: II TM Dist: >3cm Neck ROM: Full Loose/Missing/Broken Teeth: Yes (Missing teeth back left top and bottom. Denies broken or loose teeth ) Heart: RRR Lungs: CTAB Assessment and Plan Assessment Anesthesia Assessment: Anesthesia Plan Discussed and Chart Reviewed Final Anesthetic Review Family History of Problems with Anesthesia: No History of Problems with Anesthesia: No NPO: Yes ASA Class: II Final Preanesthetic Review: No Changes in Pt Med Stat, Meds/Allgs Chart Reviewed, Consent Obtained/Reviewed and Anes Risks/Benef Reviewed Patient Risk: Low Procedure Risk: Intermediate Assessment/Block/Sedation in SS: Assess/Block/Sedation-SS Anesthetic Plan Anesthetic Plan: GA Disposition: Standard PACU
[2024-05-14] VITALS (17 sets, daily range): BP systolic 111–129; BP diastolic 54–67; PULSE 61–91; RESP 14–16; TEMP 36.3–36.6; O2SAT 99–100
[2024-05-14] MEDS: Aprepitant 32 MG/4.4 ML VIAL IVPUSH (07:07)
[2024-05-14] MEDS: Lactated Ringers 1,000 ML 100 ML IVCONT (07:07)
--- NOTE | 2024-05-14 07:38 | PC.NURSE ---
MD HAYDEN SPEKAING WITH PATIENT AND MARKING WITH AIRPORT CONTROL OPERATOR.
--- NOTE | 2024-05-14 07:46 | MHC.SHP ---
Pre-Procedural Eval Section A - 24 Hr Update-Section A only Date of Service: 05/14/24 The patient is an INPATIENT: No The patient has been examined within 24 hours of the surgical procedure. The History & Physical has been completed within 30 days and I have reviewed it.: Yes Section B - Complete if H&P > 30 days Chief Complaint: Excessive and redundant skin and subcutaneous Relevant Family History (Specify if Yes): No Relevant Social History: None Present Medications: None Medical History: No relevant PMH History of Previous Operations: Relevant previous surgery/procedure and date(s) (lap sleeve gastrectomy) Allergies: Allergies Allergy/AdvReac Type Severity Reaction Status Date / Time aspirin [ASPIRIN] Allergy Severe severe Verified 05/01/24 10:53 facial swelling/redness Review of Systems Sugical H&P ROS: Negative: Constitution, Cardiovascular, Respiratory, Neurological, Psychiatric, Hem-Onc, Allergic/Immunologic, Gastrointestinal, Genitourinary, Musculoskeletal, Integumentary, Endocrine and Eyes/Ears/Nose/Throat Exam Surgical H&P Exam: Normal: HEENT, Normal: Heart, Normal: Lungs, Normal: Extremities, Normal: Abdomen, Normal: Skin and Normal: Neurological Plan Diagnosis/Plan: Unchanged I have reviewed the history and physical and performed a pertinent physical examination on my patient. No changes have occurred unless specified. Time Spent With Patient Time: Total time managing care of this patient today ____ minutes.
--- NOTE | 2024-05-14 07:48 | P.BOP_ITS ---
Brief Operative Note Date of Service: 05/14/24 Pre-op diagnosis: Excess skin Post-op diagnosis: same Procedure: PROCEDURE: Panniculectomy with umbilical transposition and bilateral subcutaneous fat flaps, bilateral brachioplasty INDICATION: This a 67 year old female who underwent laparoscopic sleeve gastrectomy. She had an excellent result achieving a BMI of 28 kg/m2 with a total weight loss of 160.3lbs, or 60.7% of her TBWL. 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 On exam she has extreme skin laxity due to massive weight loss and age with the abdominal pannus completely hiding the genitalia and the upper arms 6 cm below the level of the triceps. Panniculectomy with bilateral brachioplasty was recommended. We discussed the two options for the panniculectomy of using a combined vertical and horizontal incisions or just a horizontal (bikini) incision. It was my recommendation to do only horizontal incision based on her body habitus and skin laxity. The patient agreed with this. Risks and complications were discussed with the patient including bleeding, infection, umbilical loss, flap necrosis, asymmetry, dehiscence, seroma, VTE. The patient understood the risks and was in agreement to proceed with surgery. PROCEDURE: The incisions were appropriately marked at the preop area with the patient standing and laying down. After induction of general anesthesia a Minor catheter and pneumatic compression devices were placed. The patient was prepped and draped in the usual sterile manner and the incisions were marked again and confirmed. In similar fashion both upper arms were also marked when the patient was standing. The upper arms were performed first. The skin was infiltrated with lidocaine and epinephrine. Skin was excised with the #15 blade. Cautery was used to separate the skin from subcutaneous tissues. Careful attention was paid to make sure that the plain of excision was superficial as close to the skin as possible. The right upper arm skin was 27 cm x 10 cm and the left 24 cm x 11 cm. Skin was closed in two layers using interrupted 3.0 Monocryl sutures for the dermis and 4.0 subcuticular Monocryl suture for the skin. The skin was infiltrated with lidocaine and epinephrine. The #10 blade scalpel was used for the large incisions and the #15 blade scalpel for the umbilicus. Cautery was used to divide the subcutaneous tissues until the fascia was identified. Then I used the cautery to separate the pannus from the fascia. The inferior incision was made initially and I mobilized the flap for a several centimeters cephalad to the umbilicus. The umbilicus was incised circumferentially and detached from the surrounding tissues all the way to the fascia while its stalk was preserved. With the patient in reflex position I confirmed that the skin flaps were appropriate and would allow for the tissues to come together with reasonable tension. At that point a horizontal incision was made 4 cm above the umbilicus. #10 blade was used for the skin, cautery for the dermis and for the remaining tissues. A subcutaneous fat flap was raised from the upper skin flap in order to fill the space under the skin and support the closure of the two flaps. In addition the inferior flap was mobilized caudally for a few centimeters to create a space for the subcutaneous fat flap as well as relieve tension from the closure. A circumferential incision was made at the area where the umbilicus would be re-implanted. The umbilicus was appropriately oriented and was delivered through the defect and was secured in place with a Domenica. No bleeding was noted anywhere. One TY drain was placed from the left corner of the horizontal incision across the wound and was secured in place with a silk suture. A total of 7ml of Zynrelef was applied on top of the fascia and under the subcutaneous fat flaps. The subcutaneous fat flap was secured under the inferior flap with several interrupted 3.0 Monocryl sutures. The two flaps were brought together and were attached at the midline of the horizontal incision with a #3.0 Monocryl suture. At that point the umbilicus was properly oriented and was re-approximated to the skin with 8 interrupted 3.0 Monocryl sutures. In a similar fashion the skin flaps were re-approximated with multiple 3.0 Monocryl sutures. The skin was closed in all incisions and umbilicus with 4.0 Monocryl sutures. Steri-strips, xeroform gauzes and gauzes were used to cover the incisions. An abdominal binder was also placed. The was awaken and was transferred to the recover room in a stable condition. I was present and performed the entire procedure. 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 Morales Miner MD, PhD, FACS Surgeon: Darrian Miner MD Surgeon: Darrian Miner MD Anesthesia: GETA, local and other (7ml Zynrelef) Was an Area Plant Manager used for this Procedure?: No Estimated blood loss (mL): 10 IV fluids (mL): 1,500 Urine output (mL): 300 Pathology: other (1) right upper arm skin, 2) left upper arm skin, 3) abdominal pannus) Condition: stable Disposition: PACU
--- NOTE | 2024-05-14 07:50 | W.MHC.F2F ---
Service Date Service Date: 05/14/24 Encounter Date of encounter: 05/14/24 Reasons for Services Signs and symptoms assessed: s/p panniculectomy and bilateral brachioplasty Reason for [place] [facility]: postoperative assessment and/or care Homebound: Leaving the home is medically contraindicated at this time without the asist of a device and/or another person due th the listed conditions above and below. Reason homebound: pain with ambulation Homebound supporting statement: pt needs to be seen every other day until at least 1 week post-op and possibly 2 weeks, then frequency may change Certification: Based on the above findings, I certify that this patient is confined to the home and needs intermittent [place] [facility] care, physical therapy and/or speech therapy, or continues to need occupational therapy. The patient is under my care, and I have initiated the establishment of the plan of care. The patient will be followed by a physician who will periodically review the plan of care. Time Spent With Patient Time: Total time managing care of this patient today ____ minutes.
[2024-05-14] MEDS: ondansetron HCL 4 MG/2 ML VIAL IVPUSH (16:20)
== END 2024-05-14 18:10 | disposition home or self-care (01) ==
PROVIDERS: PCP Internal Medicine; Visit Provider Surgery
PROC: (CPT 15836; principal; 2024-05-14 07:30)
PROC: 0JB80ZZ Excision of Abdomen Subcutaneous Tissue and Fascia, Open Approach (ICD-10-PCS; CPT 15830; 2024-05-14 07:30)
DX: L98.7 Excessive and redundant skin and subcutaneous tissue (principal); M79.3 Panniculitis, unspecified; E65 Localized adiposity; L30.4 Erythema intertrigo; M19.90 Unspecified osteoarthritis, unspecified site; E78.00 Pure hypercholesterolemia, unspecified; K21.9 Gastro-esophageal reflux disease without esophagitis; Z90.3 Acquired absence of stomach [part of]; Z79.899 Other long term (current) drug therapy; Z88.8 Allergy status to other drugs, medicaments and biological substances; Z87.442 Personal history of urinary calculi; Z87.891 Personal history of nicotine dependence
CPT/HCPCS: 15830; 15847; 15836; 36415; 85610; 85730; 86850; 86900; 86901; 88304; C9088; C9145; J0131; J0690; J1100; J1170; J2250; J2405; J2704; J3010; J3370

== ENCOUNTER → 2024-05-14 05:56 | Outpatient (BNV) | payer MEDICAID, SELFPAY | PROVIDERS: PCP Internal Medicine; Visit Provider Physician Assistant Surgical | DX: M79.3 Panniculitis, unspecified (principal); L98.7 Excessive and redundant skin and subcutaneous tissue | CPT/HCPCS: 15830; 15836; G0180 ==

== ENCOUNTER 2024-05-20 11:45 | Outpatient (AMB) | payer MEDICAID, SELFPAY ==
--- NOTE | 2024-05-20 11:50 | A.OFFVIS_ITS ---
VS Expanded 05/20/24 12:05 BP 123/78 Blood Pressure Location Rt brachial Blood Pressure Position Sitting Pulse 82 Pulse Source Pulse Oximeter Temp 96.3 F L Temperature Source Tympanic Pulse Oximetry 99 Oxygen Delivery Method Room Air Intake Visit Reasons: (OV) PO Panni/Brachioplasty 05/14/24 Allergies aspirin [ASPIRIN] Allergy (Severe, Verified 05/20/24 12:07) severe facial swelling/redness HPI Comments Details: Very pleasant 38-year-old female returns to the office today in follow-up. She is status post panniculectomy and brachioplasty performed on 05/14/2024. She reports overall doing very well. She offers no significant complaints. She states approximately 25-30 mL serosanguineous fluid from the collection bulb on a daily basis. She continues both antibiotics and meal plan as directed by Dr. Miner. [facility] Medical History Elevated cholesterol DJD (degenerative joint disease) GERD (gastroesophageal reflux disease) Stone in kidney Surgical History Hx of hysterectomy History of sleeve gastrectomy H/O lithotripsy H/O: knee surgery History of ankle surgery Hx of section Family History Mother Diabetes Hypertension Fibromyalgia Arthritis Father Stomach cancer Diabetes Hypertension Blind Sister Arthritis Sister No problems noted. Brother No problems noted. Son No problems noted. Social History Household Members Other:: son-age 18 Are you a primary healthcare network consultant to a significant other at home: No Do you presently have visiting nurse or other home services: No Alcohol intake: never Patient Tobacco Use Status: Former Tobacco user Tobacco use type: Cigarette Years Smoked: 1 service: No Current occupational status: employed Physical Exam Vital Signs: Last Vital Signs Temp 96.3 F L 05/20/24 12:05 Pulse 82 05/20/24 12:05 BP 123/78 05/20/24 12:05 Pulse Ox 99 05/20/24 12:05 Oxygen Delivery Method Room Air 05/20/24 12:05 Skin Other: Transverse incision is clean, dry, intact. Umbilicus is somewhat ecchymotic although viable. Bilateral arm incisions are clean, dry, intact. Assessment & Plan Assessment & Plan (1) S/P brachioplasty: Code(s): Z98.890 - Other specified postprocedural states Category: Surgical Plan: Continue daily dressing changes. (2) S/P panniculectomy: Code(s): Z98.890 - Other specified postprocedural states Category: Surgical Plan: Continue current treatment plans including dressing changes, monitoring drain output. Continue abdominal binder. Continue meal plan and antibiotics. Return to clinic 1 week.
[2024-05-20 12:05] VITALS: BP 123/78; PULSE 82; TEMP 35.7; O2SAT 99
== END 2024-05-20 12:52 | disposition home or self-care (01) ==
PROVIDERS: PCP Internal Medicine; Visit Provider Physician Assistant Surgical
DX: Z98.890 Other specified postprocedural states (principal)
CPT/HCPCS: 99024

== ENCOUNTER → 2024-05-20 11:45 | Outpatient (BNVA) | payer MEDICAID, SELFPAY | PROVIDERS: PCP Internal Medicine; Visit Provider Physician Assistant Surgical | DX: Z48.89 Encounter for other specified surgical aftercare (principal) | CPT/HCPCS: 99212 ==

== ENCOUNTER 2024-05-27 11:48 | Outpatient (AMB) | payer MEDICAID, SELFPAY ==
--- NOTE | 2024-05-27 11:52 | MHC.OFFVISWM ---
VS Expanded 05/27/24 12:02 BP 124/62 Blood Pressure Location Rt brachial Blood Pressure Position Sitting Pulse 85 Pulse Source Pulse Oximeter Temp 95.9 F L Pulse Oximetry 94 Oxygen Delivery Method Room Air Intake Visit Reasons: (OV) PO Panni/Brachioplasty 05/14/24 Allergies aspirin [ASPIRIN] Allergy (Severe, Verified 05/20/24 12:07) severe facial swelling/redness HPI Comments Details: 38-year-old female returns to the office today. She is status post panniculectomy and brachioplasty performed on 05/14/2024. She has following the meal plan on taking her antibiotics. She reports approximately 40 mL of serosanguineous fluid from the collection bulb. She offers no complaints today. She is very happy with the results of her procedure. [facility] Medical History Elevated cholesterol DJD (degenerative joint disease) GERD (gastroesophageal reflux disease) Stone in kidney Surgical History Hx of hysterectomy History of sleeve gastrectomy H/O lithotripsy H/O: knee surgery History of ankle surgery Hx of section Family History Mother Diabetes Hypertension Fibromyalgia Arthritis Father Stomach cancer Diabetes Hypertension Blind Sister Arthritis Sister No problems noted. Brother No problems noted. Son No problems noted. Social History Household Members Other:: son-age 18 Are you a primary campground caretaker to a significant other at home: No Do you presently have visiting nurse or other home services: No Alcohol intake: never Patient Tobacco Use Status: Former Tobacco user Tobacco use type: Cigarette Years Smoked: 1 service: No Current occupational status: employed Physical Exam Skin Other: All incisions healing nicely. Umbilicus ecchymotic but viable. Assessment & Plan Assessment & Plan (1) S/P panniculectomy: Code(s): Z98.890 - Other specified postprocedural states Category: Surgical Plan: Continue antibiotics, meal plan, dressing changes. She states that she does not need the visiting nurses anymore. Return to clinic 1 week. (2) S/P brachioplasty: Code(s): Z98.890 - Other specified postprocedural states Category: Surgical Plan: Continue treatment as above.
[2024-05-27 12:02] VITALS: BP 124/62; PULSE 85; TEMP 35.5; O2SAT 94
== END 2024-05-27 12:19 | disposition home or self-care (01) ==
PROVIDERS: PCP Internal Medicine; Visit Provider Physician Assistant Surgical
DX: Z98.890 Other specified postprocedural states (principal)
CPT/HCPCS: 99024

== ENCOUNTER → 2024-05-27 11:48 | Outpatient (BNVA) | payer MEDICAID, SELFPAY | PROVIDERS: PCP Internal Medicine; Visit Provider Physician Assistant Surgical | DX: Z48.817 Encounter for surgical aftercare following surgery on the skin and subcutaneous tissue (principal); Z87.2 Personal history of diseases of the skin and subcutaneous tissue | CPT/HCPCS: 99212 ==

== ENCOUNTER 2024-06-04 09:50 | Outpatient (AMB) | payer MEDICAID, SELFPAY ==
[2024-06-04 10:08] VITALS: BP 124/58; PULSE 75; TEMP 35.9; O2SAT 100
--- NOTE | 2024-06-04 10:08 | MHC.OFFVISWM ---
VS Expanded 06/04/24 10:08 BP 124/58 L Blood Pressure Location Rt brachial Blood Pressure Position Sitting Pulse 75 Pulse Source Pulse Oximeter Temp 96.7 F L Temperature Source Temporal Artery Scan Pulse Oximetry 100 Oxygen Delivery Method Room Air Intake Visit Reasons: (OV) PO Panni/Brachioplasty 05/14/24 Allergies aspirin [ASPIRIN] Allergy (Severe, Verified 06/04/24 10:09) severe facial swelling/redness Medication List - Last Reconciled 06/04/24 by JOURDAN Weems atorvastatin 40 mg PO BEDTIME calcium citrate 200 mg PO BID cephalexin 500 mg PO Q12H cetirizine 10 mg PO DAILY cholecalciferol (vitamin D3) 25 mcg PO DAILY 90 days clotrimazole 1% (Antifungal (clotrimazole)) 1 appl topical BID docusate sodium (Colace) 100 mg PO DAILY iron,carbonyl-vitamin C 65 mg iron- 125 mg (Vitron-C) 1 tab PO DAILY thiamine HCl (vitamin B1) 100 mg PO DAILY 90 days vitamin A palmitate 3,000 mcg PO DAILY HPI Comments Details: 38-year-old female returns to the office today. She is status post panniculectomy and brachioplasty performed on 05/14/2024. She has following the meal plan on taking her antibiotics. She reports 25, 15 10cc over the past 3 days of serosanguineous fluid from the collection bulb. She reports some left arm pain at elbow which started yesterday. It is limiting her range of motion. [facility] Medical History Elevated cholesterol DJD (degenerative joint disease) GERD (gastroesophageal reflux disease) Stone in kidney Surgical History Hx of hysterectomy History of sleeve gastrectomy H/O lithotripsy H/O: knee surgery History of ankle surgery Hx of section Family History Mother Diabetes Hypertension Fibromyalgia Arthritis Father Stomach cancer Diabetes Hypertension Blind Sister Arthritis Sister No problems noted. Brother No problems noted. Son No problems noted. Social History Household Members Other:: son-age 18 Are you a primary patient care provider to a significant other at home: No Do you presently have visiting nurse or other home services: No Alcohol intake: never Patient Tobacco Use Status: Former Tobacco user Tobacco use type: Cigarette Years Smoked: 1 service: No Current occupational status: employed Physical Exam Vital Signs: Last Vital Signs Temp 96.7 F L 06/04/24 10:08 Pulse 75 06/04/24 10:08 BP 124/58 L 06/04/24 10:08 Pulse Ox 100 06/04/24 10:08 Oxygen Delivery Method Room Air 06/04/24 10:08 Const General: cooperative, comfortable and no acute distress Orientation/consciousness: patient oriented x3 GI Other: soft, nontender, nondistended, incisions healing well without erythema, drain output serosanguinous Skin Other: both arm incisions clean, healing well, no erythema or drainage; R arm with tenderness at lateral aspect of incision, no masses, slightly firm around scar but does not seem to be edematous, no erythema or ecchymosis Neuro General: patient oriented x3 Assessment & Plan Assessment & Plan (1) Arm pain, right: Code(s): M79.601 - Pain in right arm Category: Medical (2) S/P panniculectomy: Code(s): Z98.890 - Other specified postprocedural states Category: Surgical (3) S/P brachioplasty: Code(s): Z98.890 - Other specified postprocedural states Category: Surgical (4) Overweight (BMI 25.0-29.9): Code(s): E66.3 - Overweight Category: Medical Plan Will maintain drain for another week until output decreases further. Continue abx. Will order RUE US to r/o DVT/thrombophlebitis. Pt can use Tylenol for pain management for now and I will call her today with results. US scheduled for 2:30pm. I spent a total of 30 minutes reviewing/updating records, examining the patient and counseling the patient on weight management as detailed above. Orders: Orders US venous duplex UE RT Today M79.601 - Pain in right arm, Z98.890 - Other specified postprocedural states
== END 2024-06-04 10:53 | disposition home or self-care (01) ==
PROVIDERS: PCP Internal Medicine; Visit Provider Physician Assistant Surgical
DX: M79.601 Pain in right arm (principal); Z98.890 Other specified postprocedural states; E66.3 Overweight
CPT/HCPCS: 99024

== ENCOUNTER → 2024-06-04 09:50 | Outpatient (BNVA) | payer MEDICAID, SELFPAY | PROVIDERS: PCP Internal Medicine; Visit Provider Physician Assistant Surgical ==

== ENCOUNTER 2024-06-04 13:52 | Outpatient (REF) | payer MEDICAID, SELFPAY ==
--- NOTE | ~2024-06-04 | US_ITS ---
EXAMINATION: US VENOUS WITH DOPPLER UPPER EXTREMITY, RIGHT CLINICAL INFORMATION: Pain status post right brachial plasty COMPARISON: None available. TECHNIQUE: Ultrasound of the upper extremity is performed using compression sonography and color and pulse Doppler flow with assessment of augmentation of flow. There is also imaging and Doppler assessment of the jugular and subclavian veins. Spectral analysis with color-flow imaging is performed. FINDINGS: Respiratory variation, normal compression, and augmented flow are noted throughout the upper extremity including the axillary, brachial, cubital, and radial and ulnar veins. There is normal flow in the internal jugular and subclavian veins. There is no visible deep or superficial thrombophlebitis. If the patient's symptoms progress, a followup ultrasound in 5 -7 days might be of value to exclude proximal propagation from a nonvisualized distal arm vein. US/US venous duplex UE RT IMPRESSION: No DVT demonstrated in the right upper extremity
== END 2024-06-04 13:53 | disposition home or self-care (01) ==
LOC: HO.US 13:52
PROVIDERS: PCP Internal Medicine; Visit Provider Physician Assistant Surgical
DX: M79.601 Pain in right arm (principal); Z98.890 Other specified postprocedural states
CPT/HCPCS: 93971; 99212

== ENCOUNTER 2024-06-10 13:20 | Outpatient (AMB) | payer MEDICAID, SELFPAY ==
[2024-06-10 13:28] VITALS: BP 133/61; PULSE 76; TEMP 36.4; O2SAT 98
--- NOTE | 2024-06-10 13:28 | A.OFFVIS_ITS ---
VS Expanded 06/10/24 13:28 BP 133/61 Blood Pressure Location Rt brachial Blood Pressure Position Sitting Pulse 76 Pulse Source Pulse Oximeter Temp 97.6 F Temperature Source Temporal Artery Scan Pulse Oximetry 98 Oxygen Delivery Method Room Air Intake Visit Reasons: (OV) PO Panni/Brachioplasty 05/14/24 Allergies aspirin [ASPIRIN] Allergy (Severe, Verified 06/10/24 13:29) severe facial swelling/redness HPI Comments Details: patient is a very pleasant 38-year-old female who returns to the office today in follow-up. She is status post panniculectomy and brachioplasty performed on 05/14/2024. She has had approximately 15 mL of serous fluid from the collection bulb over the last 6 days. It has been 15 mL or less per day. She has no complaints. She continues antibiotics and following the meal plan as directed by Dr. Miner. She continues to wear her abdominal binder. [facility] Medical History Elevated cholesterol DJD (degenerative joint disease) GERD (gastroesophageal reflux disease) Stone in kidney Surgical History Hx of hysterectomy History of sleeve gastrectomy H/O lithotripsy H/O: knee surgery History of ankle surgery Hx of section Family History Mother Diabetes Hypertension Fibromyalgia Arthritis Father Stomach cancer Diabetes Hypertension Blind Sister Arthritis Sister No problems noted. Brother No problems noted. Son No problems noted. Social History Household Members Other:: son-age 18 Are you a primary career technical supervisor to a significant other at home: No Do you presently have visiting nurse or other home services: No Alcohol intake: never Patient Tobacco Use Status: Former Tobacco user Tobacco use type: Cigarette Years Smoked: 1 service: No Current occupational status: employed Physical Exam Vital Signs: Last Vital Signs Temp 97.6 F 06/10/24 13:28 Pulse 76 06/10/24 13:28 BP 133/61 06/10/24 13:28 Pulse Ox 98 06/10/24 13:28 Oxygen Delivery Method Room Air 06/10/24 13:28 Skin Other: All incisions are healing nicely. No evidence of dehiscence. Assessment & Plan Assessment & Plan (1) S/P panniculectomy: Code(s): Z98.890 - Other specified postprocedural states Category: Surgical Plan: Drain removed without difficulty. Instructed to continue antibiotics for 2 more weeks. Continue meal plan and abdominal binder. May shower in 2 days. (2) S/P brachioplasty: Code(s): Z98.890 - Other specified postprocedural states Category: Surgical Plan: Incisions healing nicely. Continue current instructions.
== END 2024-06-10 13:40 | disposition home or self-care (01) ==
PROVIDERS: PCP Internal Medicine; Visit Provider Physician Assistant Surgical
DX: Z98.890 Other specified postprocedural states (principal)
CPT/HCPCS: 99024

== ENCOUNTER → 2024-06-10 13:20 | Outpatient (BNVA) | payer MEDICAID, SELFPAY | PROVIDERS: PCP Internal Medicine; Visit Provider Physician Assistant Surgical | DX: Z48.817 Encounter for surgical aftercare following surgery on the skin and subcutaneous tissue (principal); Z98.890 Other specified postprocedural states | CPT/HCPCS: 99212 ==

== ENCOUNTER 2024-06-17 13:25 | Outpatient (AMB) | payer MEDICAID, SELFPAY ==
--- NOTE | 2024-06-17 13:27 | A.OFFVIS_ITS ---
VS Expanded 06/17/24 13:35 BP 122/59 L Blood Pressure Location Rt brachial Blood Pressure Position Sitting Pulse 82 Pulse Source Pulse Oximeter Temp 96.4 F L Temperature Source Tympanic Pulse Oximetry 96 Oxygen Delivery Method Room Air Intake Visit Reasons: (OV) PO Panni/Brachioplasty 05/14/24 Allergies aspirin [ASPIRIN] Allergy (Severe, Verified 06/17/24 13:27) severe facial swelling/redness HPI Comments Details: Patient is a pleasant 38-year-old female who returns to the office today in follow-up. She is status post panniculectomy and brachioplasty performed on 05/14/2024. She reports that over the last couple of weeks she has noticed increased swelling in the top part of her legs. She denies any abdominal pain. She does report urinary frequency although no difficulty with her bowels. She does specifically deny dysuria or hematuria. No fevers no chills. She states that she has not changed her meal plan. Continues to follow the recommended meal plan with protein shake protein bar and a meal. She is not adding salt or any additional seasonings to her meals as she has sensitivities. [facility] Medical History (Updated 06/17/24 @ 13:49 by JOURDAN Saini) Elevated cholesterol DJD (degenerative joint disease) GERD (gastroesophageal reflux disease) Stone in kidney Surgical History (Updated 06/17/24 @ 13:35 by Lissette Ortiz CMA) S/P brachioplasty S/P panniculectomy Hx of hysterectomy History of sleeve gastrectomy H/O lithotripsy H/O: knee surgery History of ankle surgery Hx of section Family History Mother Diabetes Hypertension Fibromyalgia Arthritis Father Stomach cancer Diabetes Hypertension Blind Sister Arthritis Sister No problems noted. Brother No problems noted. Son No problems noted. Social History Household Members Other:: son-age 18 Are you a primary customer care coordinator to a significant other at home: No Do you presently have visiting nurse or other home services: No Alcohol intake: never Patient Tobacco Use Status: Former Tobacco user Tobacco use type: Cigarette Years Smoked: 1 service: No Current occupational status: employed Physical Exam Vital Signs: Last Vital Signs Temp 96.4 F L 06/17/24 13:35 Pulse 82 06/17/24 13:35 BP 122/59 L 06/17/24 13:35 Pulse Ox 96 06/17/24 13:35 Oxygen Delivery Method Room Air 06/17/24 13:35 Skin Other: Incisions of bilateral arms, umbilicus and transverse lower abdominal all healing nicely. No evidence of dehiscence. No fluctuance or fluid collection within the abdomen. There is some fluctuance to the lateral hips of unclear etiology. Assessment & Plan Assessment & Plan (1) S/P panniculectomy: Code(s): Z98.890 - Other specified postprocedural states Category: Surgical Plan: She may resume treadmill with the use of the abdominal binder. Continue meal planning. Return to the office in 2 weeks. No clear etiology to explain the fluid gain within the lateral aspects of her thighs. We will continue to follow clinically. (2) Urinary frequency: Code(s): R35.0 - Frequency of micturition Category: Medical Plan: Unclear etiology of the additional fluid as above. Given the urinary frequency, we will obtain UA C&S to rule out UTI. Orders: Orders UA CC w/rflx Micro + Cult Today R35.0 - Frequency of micturition, Z98.890 - Other specified postprocedural states
[2024-06-17 13:35] VITALS: BP 122/59; PULSE 82; TEMP 35.8; O2SAT 96
== END 2024-06-17 13:53 | disposition home or self-care (01) ==
PROVIDERS: PCP Internal Medicine; Visit Provider Physician Assistant Surgical
DX: Z98.890 Other specified postprocedural states (principal); R35.0 Frequency of micturition
CPT/HCPCS: 99024

== ENCOUNTER → 2024-06-17 13:25 | Outpatient (BNVA) | payer MEDICAID, SELFPAY | PROVIDERS: PCP Internal Medicine; Visit Provider Physician Assistant Surgical | DX: R35.0 Frequency of micturition (principal); Z48.817 Encounter for surgical aftercare following surgery on the skin and subcutaneous tissue; Z98.890 Other specified postprocedural states | CPT/HCPCS: 99212 ==

== ENCOUNTER 2024-07-01 07:44 | Outpatient (REF) | payer MEDICAID, SELFPAY ==
[2024-07-01 09:00] LABS: Appearance Urine Clear; Color Urine Yellow; Glucose Urine UA Negative (Negative); Leukocyte Esterase Urine Negative (Negative); Nitrite Urine Negative (Negative); PH 5.5 (5.0-9.0); Specific Gravity - Urine >= 1.030 (1.005-1.025); UMIC TRIGGER UACC YES; Urine Blood Negative (Negative); Urine Ketones Negative (Negative); Urine Protein 30 (1+) mg/dL (Neg-Trace)
[2024-07-01 09:33] LABS: Bacteria Urine None Seen (None Seen); Hyaline Casts Urine 0-2 /LPF (0-2); RBC Urine 0-2 /HPF (0-2); WBC Urine 0-5 /HPF (0-5)
== END 2024-07-01 07:45 | disposition home or self-care (01) ==
LOC: HO.LAB 07:44
PROVIDERS: Visit Provider Physician Assistant Surgical
DX: Z98.890 Other specified postprocedural states (principal); R35.0 Frequency of micturition
CPT/HCPCS: 81001; 81003; 99212

== ENCOUNTER 2024-07-01 08:23 | Outpatient (AMB) | payer MEDICAID, SELFPAY ==
--- NOTE | 2024-07-01 08:25 | MHC.OFFVISWM ---
VS Expanded 07/01/24 08:35 BP 120/70 Blood Pressure Location Rt brachial Blood Pressure Position Sitting Pulse 87 Pulse Source Pulse Oximeter Temp 96.3 F L Temperature Source Temporal Artery Scan Pulse Oximetry 99 Oxygen Delivery Method Room Air Intake Visit Reasons: (OV) PO LSG 11/10/22 Allergies aspirin [ASPIRIN] Allergy (Severe, Verified 06/17/24 13:27) severe facial swelling/redness HPI Comments Details: Patient is a very pleasant 38-year-old female who returns to the office today in follow-up. She is status post panniculectomy and brachioplasty performed on 05/14/2024. She previously noted bilateral thigh swelling but this has since resolved. She has no complaints at today's visit. She is very satisfied with the results of her procedure. She continues to follow the meal plan as directed by Dr. Miner. [facility] Medical History (Updated 06/17/24 @ 13:49 by JOURDAN Saini) Elevated cholesterol DJD (degenerative joint disease) GERD (gastroesophageal reflux disease) Stone in kidney Surgical History S/P brachioplasty S/P panniculectomy Hx of hysterectomy History of sleeve gastrectomy H/O lithotripsy H/O: knee surgery History of ankle surgery Hx of section Family History Mother Diabetes Hypertension Fibromyalgia Arthritis Father Stomach cancer Diabetes Hypertension Blind Sister Arthritis Sister No problems noted. Brother No problems noted. Son No problems noted. Social History Household Members Other:: son-age 18 Are you a primary day care assistant to a significant other at home: No Do you presently have visiting nurse or other home services: No Alcohol intake: never Patient Tobacco Use Status: Former Tobacco user Tobacco use type: Cigarette Years Smoked: 1 service: No Current occupational status: employed Physical Exam Vital Signs: Last Vital Signs Temp 96.3 F L 07/01/24 08:35 Pulse 87 07/01/24 08:35 BP 120/70 07/01/24 08:35 Pulse Ox 99 07/01/24 08:35 Oxygen Delivery Method Room Air 08/05/24 08:35 Skin Other: Transverse, umbilical and bilateral arm incisions all healing very nicely. No evidence of dehiscence. No evidence of swelling Assessment & Plan Assessment & Plan (1) S/P panniculectomy: Code(s): Z98.890 - Other specified postprocedural states Category: Surgical Plan: Status post panniculectomy and brachioplasty on 05/14/2024. Patient is doing exceptionally well. Following the meal plan. Walking daily. Continue to wear abdominal binder. No complaints at today's visit. Continue current plans and return to clinic in 4 weeks.
[2024-07-01 08:35] VITALS: BP 120/70; PULSE 87; TEMP 35.7; O2SAT 99
== END 2024-07-01 08:49 | disposition home or self-care (01) ==
PROVIDERS: PCP Internal Medicine; Visit Provider Physician Assistant Surgical
DX: Z98.890 Other specified postprocedural states (principal)
CPT/HCPCS: 99024

== ENCOUNTER 2024-08-14 08:48 | Outpatient (AMB) | payer OTHER, SELFPAY ==
--- NOTE | 2024-08-14 08:49 | A.OFFVIS_ITS ---
VS Expanded 08/14/24 08:58 BP 115/62 Blood Pressure Location Rt brachial Blood Pressure Position Sitting Pulse 76 Pulse Source Pulse Oximeter Temp 96.8 F Temperature Source Temporal Artery Scan Pulse Oximetry 98 Oxygen Delivery Method Room Air Height 4 ft 3 in Weight 108 lb 3.2 oz BMI 29.2 Body Fat % 29.8 Body Fat Mass 32.2 Fat Free Mass 75.8 Visceral Fat Rating 6.0 Body Water % 50.2 Body Water Mass 54.2 Muscle Mass/Score 71.8 Basal Metabolic Rate/Score 1,065 Intake Visit Reasons: (OV) PO LSG 11/10/22 Business Development Manager Required: Yes Business Development Manager Name: office cmi Allergies aspirin [ASPIRIN] Allergy (Severe, Verified 08/14/24 08:57) severe facial swelling/redness Medication List - Last Reconciled 08/14/24 by JOURDAN Saini atorvastatin 40 mg PO BEDTIME calcium citrate 200 mg PO BID cetirizine 10 mg PO DAILY cholecalciferol (vitamin D3) 25 mcg PO DAILY 90 days clotrimazole 1% (Antifungal (clotrimazole)) 1 appl topical BID docusate sodium (Colace) 100 mg PO DAILY iron,carbonyl-vitamin C 65 mg iron- 125 mg (Vitron-C) 1 tab PO DAILY thiamine HCl (vitamin B1) 100 mg PO DAILY 90 days vitamin A palmitate 3,000 mcg PO DAILY 3 months HPI Comments Details: Patient is a pleasant 39-year-old female who returns to the office today in follow-up. She is status post panniculectomy and brachioplasty on 05/14/2024 and history of sleeve gastrectomy on 11/10/2022. Weight today is 108.2 lb with a BMI of 29.2. She is following a meal plan consisting of fair life 30 g ready to drink shake, half with 4 oz of almond milk added in the morning and then again at lunch. She is additionally having a Swedish yogurt and 2 oz of protein and 2 oz of vegetables throughout the day. She is exercising daily walking on a treadmill. She is very satisfied with the outcome of her Plastic surgery case. [facility] Medical History (Updated 06/17/24 @ 13:49 by JOURDAN Saini) Elevated cholesterol DJD (degenerative joint disease) GERD (gastroesophageal reflux disease) Stone in kidney Surgical History S/P brachioplasty S/P panniculectomy Hx of hysterectomy History of sleeve gastrectomy H/O lithotripsy H/O: knee surgery History of ankle surgery Hx of section Family History Mother Diabetes Hypertension Fibromyalgia Arthritis Father Stomach cancer Diabetes Hypertension Blind Sister Arthritis Sister No problems noted. Brother No problems noted. Son No problems noted. Social History Household Members Other:: son-age 18 Are you a primary healthcare associate to a significant other at home: No Do you presently have visiting nurse or other home services: No Alcohol intake: never Patient Tobacco Use Status: Former Tobacco user Tobacco use type: Cigarette Years Smoked: 1 service: No Current occupational status: employed Physical Exam Vital Signs: Last Vital Signs Temp 96.8 F 08/14/24 08:58 Pulse 76 08/14/24 08:58 BP 115/62 08/14/24 08:58 Pulse Ox 98 08/14/24 08:58 Oxygen Delivery Method Room Air 08/14/24 08:58 BMI result Body Mass Index 29.2 Skin Other: Well healed incisions Assessment & Plan Assessment & Plan (1) S/P panniculectomy: Code(s): Z98.890 - Other specified postprocedural states Category: Medical Plan: She may resume exercise without restriction. She does not need to continue with her abdominal binder. She will continue her current meal plan. Return to the office in October.
[2024-08-14 08:58] VITALS: BP 115/62; PULSE 76; TEMP 36; O2SAT 98; BMI 29.2
== END 2024-08-14 09:39 | disposition home or self-care (01) ==
PROVIDERS: PCP Internal Medicine; Visit Provider Physician Assistant Surgical
DX: E66.3 Overweight (principal); Z68.29 Body mass index [BMI] 29.0-29.9, adult; Z90.3 Acquired absence of stomach [part of]; Z98.84 Bariatric surgery status
CPT/HCPCS: 99213

== ENCOUNTER → 2024-08-14 08:48 | Outpatient (BNVA) | payer OTHER, SELFPAY | PROVIDERS: PCP Internal Medicine; Visit Provider Physician Assistant Surgical | DX: Z98.890 Other specified postprocedural states (principal) | CPT/HCPCS: 99212 ==

== ENCOUNTER 2024-11-13 08:49 | Outpatient (AMB) | payer OTHER, SELFPAY ==
--- NOTE | 2024-11-13 08:51 | MHC.OFFVISWM ---
VS Expanded 11/13/24 09:00 BP 126/67 Blood Pressure Location Rt brachial Blood Pressure Position Sitting Pulse 77 Pulse Source Pulse Oximeter Temp 98.8 F Temperature Source Temporal Artery Scan Pulse Oximetry 77 L Oxygen Delivery Method Room Air Height 4 ft 3 in Weight 111 lb 6.4 oz BMI 30.1 Body Fat % 30.7 Body Fat Mass 34.2 Fat Free Mass 77.2 Visceral Fat Rating 6.0 Body Water % 49.5 Body Water Mass 55.2 Muscle Mass/Score 73.2 Basal Metabolic Rate/Score 1,083 Intake Visit Reasons: (OV) PO LSG 11/10/22 Machine Set Up Operator Required: Yes Machine Set Up Operator Services: Machine Set Up Operator Present Machine Set Up Operator Name: Hospital automatic casting machine operator Allergies aspirin [ASPIRIN] Allergy (Severe, Verified 08/14/24 08:57) severe facial swelling/redness Medication List - Last Reconciled 11/13/24 by JOURDAN Saini atorvastatin 40 mg PO BEDTIME calcium citrate 200 mg PO BID cetirizine 10 mg PO DAILY cholecalciferol (vitamin D3) 25 mcg PO DAILY 90 days clotrimazole 1% (Antifungal (clotrimazole)) 1 appl topical BID docusate sodium (Colace) 100 mg PO DAILY iron,carbonyl-vitamin C 65 mg iron- 125 mg (Vitron-C) 1 tab PO DAILY thiamine HCl (vitamin B1) 100 mg PO DAILY 90 days vitamin A palmitate 3,000 mcg PO DAILY 3 months HPI Comments Details: Patient is a pleasant 39-year-old female who returns to the office today in follow-up. She is status post panniculectomy and brachioplasty on 05/14/2024 and history of sleeve gastrectomy on 11/10/2022. Presents for 2 year postop follow-up. Weight today is 111.4 lb with a BMI of 30.1. Weight at the time of surgery in October 2022 was 205 lb and it was 264 lb upon presentation to the weight loss program. She has lost 94 lb since surgery and 153 lb since initial presentation. She has done well with the panniculectomy and brachioplasty, but continues to have excess skin of her thighs. This causes pain and rash despite treatment with clotrimazole. With treatment of clotrimazole, she has improvement of the rash, however she has recurrence. She has ill fitting clothing and this causes significant distress because of the excess skin. meal plan: fair life 30 g ready to drink shake, in the morning and then again at lunch. meal 6 forks protein and 4 forks veg another meal with 6 forks protein and 4 forks veg exercise plan: walking 30 minutes daily on treadmill, 120 calories, speed 1.8, no incline due ankle injury then 15 minutes weights Any post op complications: None CÉSAR: Never DM: Never HTN: Never Hyperlipidemia: Improved GERD:?0-5 scale ??0 = no symptoms ??1 = symptoms noticeable but not bothersome 2 =symptoms bothersome but not daily ? 3 = symptoms bothersome and daily 4 = symptoms affect daily activities 5 = symptoms are incapacitating, unable to do daily activities ? How bad is the heartburn: 0 ? Heartburn while lying down: 0 ? Heartburn when standing up: 0 ? Heartburn after meals: 0 ? Does heartburn change your diet: 0 ? Does heartburn wake you up from sleep: 0 ? Do you have difficulty swallowin ? Do you have pain with swallowin ? If you take medicine for your reflux, does this affect your daily life: 0 Satisfaction with present condition - satisfied or not satisfied: Satisfied [facility] Medical History Elevated cholesterol DJD (degenerative joint disease) GERD (gastroesophageal reflux disease) Stone in kidney Surgical History S/P brachioplasty S/P panniculectomy Hx of hysterectomy History of sleeve gastrectomy H/O lithotripsy H/O: knee surgery History of ankle surgery Hx of section Family History Mother Diabetes Hypertension Fibromyalgia Arthritis Father Stomach cancer Diabetes Hypertension Blind Sister Arthritis Sister No problems noted. Brother No problems noted. Son No problems noted. Social History Household Members Other:: son-age 18 Are you a primary rn home care to a significant other at home: No Do you presently have visiting nurse or other home services: No Alcohol intake: never Patient Tobacco Use Status: Former Tobacco user Tobacco use type: Cigarette Years Smoked: 1 service: No Current occupational status: employed Physical Exam Const General: cooperative and no acute distress Orientation/consciousness: patient oriented x3 Resp Effort & Inspection: normal respiratory effort Auscultation: clear to auscultation bilaterally Cardio Rate: regular rate Rhythm: regular rhythm GI Inspection: Yes normal to inspection and Yes incision (well healed) Palpation (GI): Soft to palpation and no masses Skin Other: Significant excess skin of bilateral thighs. Evidence of resolved dermatitis to the medial aspect bilaterally Neuro General: patient oriented x3 Assessment & Plan Assessment & Plan (1) S/P laparoscopic sleeve gastrectomy: Code(s): Z98.84 - Bariatric surgery status Category: Surgical Plan: Check 2 year postop labs. Change meal plan to decrease her shake to half Encouraged weight training prior to cardio. She will join a gym to increase her cardio activity and options. Goal of burning 300 calories per day. Despite a BMI of 30.1, her body composition is such that her fat percentage is 30.7, visceral fat rating is 6, fat-free mass is 77.2 lb. She has a healthy body composition. (2) Excess skin: Code(s): L98.7 - Excessive and redundant skin and subcutaneous tissue Category: Medical Plan: She has done very well with the brachioplasty and panniculectomy. She has continued excess skin of bilateral thighs. Given the 153 lb weight loss since presenting to the program and 94 lb weight loss since surgery, she has excess skin that is negatively impacting her activities of daily living. She additionally has had recurrence of rash despite pharmaceutical treatment. Ill fitting clothing to the lower extremity due to the excess skin. As a result, it would be appropriate for medically necessary skin removal surgery of bilateral medial thighs. Pictures have been taken and we will submit to her insurance company for approval. She has maintained a healthy body composition and stable weight over the last 4 months. In the meantime, continue p.r.n. clotrimazole. Orders: Orders Insulin Today D64.9 - Anemia, unspecified, E78.00 - Pure hypercholesterolemia, unspecified, Z98.84 - Bariatric surgery status Hemoglobin A1c Today D64.9 - Anemia, unspecified, E78.00 - Pure hypercholesterolemia, unspecified, Z98.84 - Bariatric surgery status Lipid Panel Today D64.9 - Anemia, unspecified, E78.00 - Pure hypercholesterolemia, unspecified, Z98.84 - Bariatric surgery status IRON PROFILE Today D64.9 - Anemia, unspecified, E78.00 - Pure hypercholesterolemia, unspecified, Z98.84 - Bariatric surgery status Vitamin B12 and Folate Today D64.9 - Anemia, unspecified, E78.00 - Pure hypercholesterolemia, unspecified, Z98.84 - Bariatric surgery status Zinc Today D64.9 - Anemia, unspecified, E78.00 - Pure hypercholesterolemia, unspecified, Z98.84 - Bariatric surgery status C Reactive Protein Today D64.9 - Anemia, unspecified, E78.00 - Pure hypercholesterolemia, unspecified, Z98.84 - Bariatric surgery status TSH reflex Free T4 Today D64.9 - Anemia, unspecified, E78.00 - Pure hypercholesterolemia, unspecified, Z98.84 - Bariatric surgery status Ferritin Today D64.9 - Anemia, unspecified, E78.00 - Pure hypercholesterolemia, unspecified, Z98.84 - Bariatric surgery status Complete Blood Count Auto Diff Today D64.9 - Anemia, unspecified, E78.00 - Pure hypercholesterolemia, unspecified, Z98.84 - Bariatric surgery status Comprehensive Met. Panel Today D64.9 - Anemia, unspecified, E78.00 - Pure hypercholesterolemia, unspecified, Z98.84 - Bariatric surgery status Vitamin B1 Today D64.9 - Anemia, unspecified, E78.00 - Pure hypercholesterolemia, unspecified, Z98.84 - Bariatric surgery status Vitamin A Today D64.9 - Anemia, unspecified, E78.00 - Pure hypercholesterolemia, unspecified, Z98.84 - Bariatric surgery status Vitamin D 25-OH Total Today D64.9 - Anemia, unspecified, E78.00 - Pure hypercholesterolemia, unspecified, Z98.84 - Bariatric surgery status
[2024-11-13 09:00] VITALS: BP 126/67; PULSE 77; TEMP 37.1; O2SAT 77; BMI 30.1
== END 2024-11-13 09:30 | disposition home or self-care (01) ==
PROVIDERS: PCP Internal Medicine; Visit Provider Physician Assistant Surgical
DX: L98.7 Excessive and redundant skin and subcutaneous tissue (principal); Z98.84 Bariatric surgery status
CPT/HCPCS: 99214; G2211

== ENCOUNTER 2024-11-13 08:49 | Outpatient (REF) | payer OTHER, SELFPAY ==
[2024-11-13 09:52] LABS: MANUAL DIFF FLAG NO
[2024-11-13 10:50] LABS: Basophils Percent Auto 0.6 % (0-2); Eosinophils Percent Auto 0.8 % (0-4); Hemoglobin 12.8 g/dl (12.0-16.0); Imm Gran Abs Auto 0.01 X10*3/uL (0.00-0.03); Imm Gran Pct Auto 0.2 % (0.0-0.4); Lymphocytes Absolute Auto 1.5 X10*3/uL (1.2-4.9); Lymphocytes Percent Auto 27.6 % (20-40); Mean Corpuscular HGB Conc 32.8 g/dl (31.0-35.0); Mean Corpuscular Hemoglobin 29.1 pg (27.0-33.0); Mean Corpuscular Volume 88.6 fL (80.0-98.0); Mean Platelet Volume 11.2 fL (9.4-12.3); Monocytes Absolute Auto 0.3 X10*3/uL (0.1-1.2); Monocytes Percent Auto 6.3 % (2-11); Neutrophils Absolute Auto 3.4 x10*3/uL (2.0-8.3); Neutrophils Percent Auto 64.5 % (45-73); Platelet Count 199 X10*3/uL (160-400); Red Cell Distribution Width 14.5 % (11.0-16.0); White Blood Count 5.3 X10*3/uL (4.8-10.8)
[2024-11-13 11:02] LABS: Estimated Average Glucose 85 mg/dL; Hemoglobin A1c % 4.6 % (<6.0); Total Hemoglobin (HGBA1C) 3305.5627 umol/L
[2024-11-13 11:25] LABS: Alanine Aminotransferase 28 U/L (0-31); Alkaline Phosphatase 62 U/L (39-117); Anion Gap 8 (12-20); Aspartate Amino Transferase 28 U/L (5-31); Bilirubin Total 0.4 mg/dL (0.0-1.0); Blood Urea Nitrogen 20 mg/dL (9-16); C Reactive Protein 0.18 mg/dL (< or = 0.50); Calcium 8.6 mg/dL (8.4-10.2); Carbon Dioxide 30 mmol/L (22-29); Chloride 107 mmol/L (96-108); Cholesterol 132 mg/dL (<200); Estimated Glomerular Filt Rate > 60; Glucose Random 91 mg/dL (60-115); HDL Cholesterol 52 mg/dL (>40); Iron 77 mcg/dL (30-160); LDL Cholesterol Calculated 73 mg/dL (<100); Percent Iron Saturation 31 % (15-50); Potassium 3.5 mmol/L (3.3-5.1); Sodium 141 mmol/L (135-145); Total Iron Binding Capacity 246 mcg/dL (228-428); Triglycerides 36 mg/dL (<150); Unsaturated Iron Binding 169 ug/dL
[2024-11-13 11:49] LABS: Ferritin 53 ng/mL (10-250); TSH reflex Free T4 0.55 uIU/mL (0.32-4.0); Vitamin D 25-OH Total 31.9 ng/mL (>30)
[2024-11-13 11:56] LABS: Folate 15.2 ng/mL (> or = 4.0); Vitamin B12 1986 pg/mL (200-900)
[2024-11-13 12:03] LABS: Insulin 5 uU/mL (2-29)
[2024-11-16 01:38] LABS: Zinc 74 mcg/dL (60-130)
[2024-11-18 17:19] LABS: Vitamin A 33 mcg/dL (38-98)
[2024-11-19 14:49] LABS: Vitamin B1 20 nmol/L (8-30)
== END 2024-11-13 08:50 | disposition home or self-care (01) ==
LOC: HO.LAB 08:49
PROVIDERS: PCP Internal Medicine; Visit Provider Physician Assistant Surgical
DX: D64.9 Anemia, unspecified (principal); E78.00 Pure hypercholesterolemia, unspecified; Z98.84 Bariatric surgery status; L98.7 Excessive and redundant skin and subcutaneous tissue
CPT/HCPCS: 36415; 80053; 80061; 82306; 82607; 82728; 82746; 83036; 83525; 83540; 84425; 84443; 84590; 84630; 85025; 86140; 99212

== ENCOUNTER 2024-11-22 08:07 | Outpatient (AMB) | payer OTHER, SELFPAY ==
--- NOTE | 2024-11-22 11:05 | A.OFFVIS_ITS ---
VS Expanded 11/22/24 11:05 Height 4 ft 3 in Weight 111 lb BMI 30.0 Body Fat % 36.7 Body Fat Mass 40.8 Fat Free Mass 70.4 Visceral Fat Rating 13 Body Water % 43.4 Body Water Mass 48.3 Basal Metabolic Rate/Score 1,057 Intake Visit Reasons: TV Pre Op Thighplasty 12/05/24 Allergies aspirin [ASPIRIN] Allergy (Severe, Verified 08/14/24 08:57) severe facial swelling/redness HPI HPI TV Pre Op Thighplasty 12/05/24: Details: Start time: 11am, End time: 11.30am ?I spent 25 minutes speaking with the patient on the phone plus an additional 5 minutes reviewing and updating records for a total of 30 minutes HPI Comments Details: Overall weight loss: 153lbs, or 58% TBWL Is doing one Fairlife shake (4oz Fairlife and 4oz almond milk), lunch (4oz salad and meat), dinner (food or shake) Occasionally one protein bar per day Exercise: is doing treadmill for 120 calories PFSH Medical History Elevated cholesterol DJD (degenerative joint disease) GERD (gastroesophageal reflux disease) Stone in kidney Surgical History S/P brachioplasty S/P panniculectomy Hx of hysterectomy History of sleeve gastrectomy H/O lithotripsy H/O: knee surgery History of ankle surgery Hx of section Family History Mother Diabetes Hypertension Fibromyalgia Arthritis Father Stomach cancer Diabetes Hypertension Blind Sister Arthritis Sister No problems noted. Brother No problems noted. Son No problems noted. Social History Household Members Other:: son-age 18 Are you a primary special needs caregiver to a significant other at home: No Do you presently have visiting nurse or other home services: No Alcohol intake: never Patient Tobacco Use Status: Former Tobacco user Tobacco use type: Cigarette Years Smoked: 1 service: No Current occupational status: employed Physical Exam Vital Signs: BMI result Body Mass Index 30.0 Telehealth Telehealth Telehealth Platform: Telephone Location of provider rendering services: practice address Location of patient: address on file Patient Identification confirmed using: Name, : Yes Telehealth method: voice only Patient verbally consented to treatment: Yes Patient verbally consented to billing insurance company: Yes Patient informed of any privacy concerns related to visit: Yes Minutes spent on Phone/Video with Pt.: 30 Assessment & Plan Assessment & Plan (1) Excess skin: Code(s): L98.7 - Excessive and redundant skin and subcutaneous tissue Category: Medical Plan: 1. Plan for bilateral thighplasty. Risks of infection, bleeding, asymmetry, wound dehiscence and blood clots were discussed with the patient. 2. You will need to be doing sponge baths the first 1-2 weeks. No showers. You need to have help at home to get you up and limit your activities as much as possible for at least the 4-6 weeks after surgery 3. We will arrange for a visiting nurse to come at home to help you with dres sing changes and send me pictures of the procedures. We will send at your home supplies for the dressing changes. 4. Change nutritional plan to TWO FAIRLIFE (mix TWO oz of Fairlife with SIX oz almond milk) at 7am-9am and 10am-12pm, two IQ protein bars at 1pm-3pm and 4pm- 6pm and one meal at 7pm (4 forks of protein and 4 forks of salad or vegetables). If needed, do another HALF bar at 9pm-10pm if you feel hungry. This will improve weight loss and healing after surgery. 5. Continue all vitamins 6. Do blood work not fasting any day between Monday11/25/24 and Monday11/29/24 and brain picker the antibiotic prescription from your pharmacy 7. Risks and complications were discussed the possibility of bleeding that may require transfusion, wound dehiscence or infection, dog ears , flap asymmetry. We also discussed the importance of strict avoidance of weight lifting. 8. Avoid aspirin, motrin, ibuprofen, Aleve, Advil, Melixicam, Excedrin, Naproxyn. Only Tylenol is OK Orders: Orders Comprehensive Met. Panel Today Z01.818 - Encounter for other preprocedural examination Type and Screen Today Z01.818 - Encounter for other preprocedural examination Prothrombin Time INR Today Z01.818 - Encounter for other preprocedural examination Partial Thromboplastin Time Today Z01.818 - Encounter for other preprocedural examination Complete Blood Count Auto Diff Today Z01.818 - Encounter for other preprocedural examination Medications: New cephalexin 500 mg PO Q12H 90 caps 0RF L03.90 - Cellulitis, unspecified ondansetron Only take one every 12 hours as needed if you have nausea 4 mg PO Q12H 20 tabs 0RF nausea and vomiting R11.0 - Nausea
== END 2024-11-22 11:31 | disposition home or self-care (01) ==
LOC: HO.HBS 08:07
PROVIDERS: PCP Internal Medicine; Visit Provider Surgery
DX: L98.7 Excessive and redundant skin and subcutaneous tissue (principal)
CPT/HCPCS: 99214

== ENCOUNTER → 2024-11-22 08:07 | Outpatient (BNVA) | payer OTHER, SELFPAY | PROVIDERS: PCP Internal Medicine; Visit Provider Surgery ==

== ENCOUNTER → 2024-11-28 09:08 | Outpatient (BNVA) | payer OTHER, SELFPAY | PROVIDERS: PCP Internal Medicine; Visit Provider Physician Assistant Surgical ==

== ENCOUNTER 2024-11-29 10:32 | Outpatient (REF) | payer OTHER, SELFPAY ==
--- NOTE | ~2024-11-29 | XR_ITS ---
CLINICAL HISTORY: Z01.818 - Encounter for other preprocedural examination 2 view chest x-ray Comparison: CR/SR - XR CHEST 2V - 09/02/2022 10:44 AM EDT Findings: Lungs are well inflated. Mediastinal contours, cardiac silhouette, and pulmonary vasculature are within normal limits. No focal areas of consolidation. No pleural effusion or pneumothorax. Degenerative change of the thoracolumbar spine with mild convex right thoracolumbar curvature. Numerous surgical clips within the left upper abdomen. IMPRESSION: No infiltrate. This document has been electronically signed by: Be Burton MD on 11/30/2024 07:39:42
--- NOTE | 2024-11-29 10:38 | ECG_ITS ---
Test Reason : pre op Blood Pressure : / mmHG Vent. Rate : 070 BPM Atrial Rate : 070 BPM P-R Int : 170 ms QRS Dur : 068 ms QT Int : 364 ms P-R-T Axes : 010 034 024 degrees QTc Int : 393 ms Normal sinus rhythm Normal ECG When compared to the previous EKG of No significant changes seen Referred By: Dimitry Mobley Electronically Signed By:ELENA HONG MD
== END 2024-11-29 10:33 | disposition home or self-care (01) ==
LOC: HO.XRAY 10:32
PROVIDERS: PCP Internal Medicine; Visit Provider Physician Assistant Surgical
DX: Z01.818 Encounter for other preprocedural examination (principal)
CPT/HCPCS: 71046; 93005

== ENCOUNTER → 2024-11-29 10:38 | Outpatient (BNV) | payer OTHER, SELFPAY | PROVIDERS: PCP Internal Medicine; Visit Provider Internal Medicine Cardiovascular Disease | DX: E78.00 Pure hypercholesterolemia, unspecified (principal); Z01.810 Encounter for preprocedural cardiovascular examination | CPT/HCPCS: 93010 ==

== ENCOUNTER → 2024-11-29 10:48 | Outpatient (BNV) | payer OTHER, SELFPAY | PROVIDERS: PCP Internal Medicine; Visit Provider Radiology Diagnostic Radiology | DX: M79.3 Panniculitis, unspecified (principal); L98.7 Excessive and redundant skin and subcutaneous tissue; Z01.818 Encounter for other preprocedural examination | CPT/HCPCS: 71046 ==

== ENCOUNTER 2024-12-05 07:53 | Day surgery (SDC) | payer OTHER, SELFPAY ==
[2024-11-28 09:03] LABS: MANUAL DIFF FLAG NO
[2024-11-28 09:11] LABS: Basophils Percent Auto 0.8 % (0-2); Eosinophils Percent Auto 0.8 % (0-4); Hematocrit 40.8 % (37.0-47.0); Hemoglobin 13.6 g/dl (12.0-16.0); Imm Gran Abs Auto 0.01 X10*3/uL (0.00-0.03); Imm Gran Pct Auto 0.2 % (0.0-0.4); Lymphocytes Percent Auto 39.3 % (20-40); Mean Corpuscular HGB Conc 33.3 g/dl (31.0-35.0); Mean Corpuscular Hemoglobin 29.2 pg (27.0-33.0); Mean Corpuscular Volume 87.7 fL (80.0-98.0); Mean Platelet Volume 10.7 fL (9.4-12.3); Monocytes Absolute Auto 0.3 X10*3/uL (0.1-1.2); Neutrophils Absolute Auto 2.6 x10*3/uL (2.0-8.3); Neutrophils Percent Auto 52.9 % (45-73); Platelet Count 200 X10*3/uL (160-400); Red Blood Count 4.65 X10*6/uL (4.20-5.50); Red Cell Distribution Width 13.8 % (11.0-16.0)
[2024-11-28 09:19] LABS: INTERNATIONAL NORM RATIO 1.1 (0.9-1.1); Prothrombin Time 12.3 SEC (10.9-12.4)
[2024-11-28 09:22] LABS: Partial Thromboplastin Time 31.3 SEC (26.0-36.8)
[2024-11-28 09:35] LABS: Alanine Aminotransferase 38 U/L (0-31); Albumin Level 4.1 g/dL (3.5-5.0); Alkaline Phosphatase 72 U/L (39-117); Anion Gap 12 (12-20); Aspartate Amino Transferase 32 U/L (5-31); Bilirubin Total 0.3 mg/dL (0.0-1.0); Blood Urea Nitrogen 20 mg/dL (9-16); Carbon Dioxide 26 mmol/L (22-29); Chloride 106 mmol/L (96-108); Estimated Glomerular Filt Rate > 60; Glucose Random 90 mg/dL (60-115); Potassium 3.8 mmol/L (3.3-5.1); Sodium 140 mmol/L (135-145)
[2024-11-28 14:26] VITALS: BMI 28.9
--- NOTE | 2024-11-29 12:09 | HO.ANESPROP2 ---
Documented by User: Antionette Galvan NP 11/29/24 12:11 HPI - Anesthesia Eval Consult details Narrative: 39yo F for Bilateral Thighplasty s/p panniculectomy and brachioplasty 04/2024 with GA-ETT 7 s/p gastric sleeve 2021 s/p hysterectomy PMFSH Active Problems Active Problems: All Active Problems Pre-op evaluation (Acute) Urinary frequency (Acute) Arm pain, right (Acute) S/P panniculectomy (Acute) S/P brachioplasty (Acute) Panniculitis (Acute) S/P laparoscopic hysterectomy (Acute) Overweight (BMI 25.0-29.9) (Acute) Excess skin (Acute) Anemia (Acute) Obesity (Acute) Constipation (Acute) Congenital intra-abdominal adhesions (Acute) S/P laparoscopic sleeve gastrectomy (Acute) Liver fibrosis (Acute) Hypercholesteremia (Acute) Snoring (Acute) Daytime somnolence (Acute) Morbid obesity (Acute) DJD (degenerative joint disease) (Acute) GERD (gastroesophageal reflux disease) (Acute) Past Medical History Medical History Elevated cholesterol DJD (degenerative joint disease) GERD (gastroesophageal reflux disease) Stone in kidney Family History Family History Mother Diabetes Hypertension Fibromyalgia Arthritis Father Stomach cancer Diabetes Hypertension Blind Sister Arthritis Sister No problems noted. Brother No problems noted. Son No problems noted. Family history of problems with anesthesia: No Surgical History Surgical History S/P brachioplasty S/P panniculectomy Hx of hysterectomy History of sleeve gastrectomy H/O lithotripsy H/O: knee surgery History of ankle surgery Hx of section History of Problems with Anesthesia: No Social History Social History Household Members Other:: son-age 18 Are you a primary patient care specialist to a significant other at home: No Do you presently have visiting nurse or other home services: No Alcohol intake: never Patient Tobacco Use Status: Former Tobacco user Tobacco use type: Cigarette Years Smoked: 1 Use of substances other than those prescribed or required for medical reasons: No Have you been hit, kicked, punched, or otherwise hurt by someone within the past year? If so, by whom?: No Are you DNR?: No Advance Directives: No Advance Directives Information Provided: Yes Advance Directives on File: No Recently lost weight without trying: No Eating poorly because of decreased appetite: No Nutrition Risks: No Nutritional Risk Patient : No : No Poor oral hygiene: No service: No Current occupational status: employed Meds Allergies Allergy/AdvReac Type Severity Reaction Status Date / Time aspirin [ASPIRIN] Allergy Severe severe Verified 08/14/24 08:57 facial swelling/redness Home Medications ?Medication ?Instructions ?Recorded ?Confirmed ?Last Taken ?Type cetirizine 10 mg tablet 10 mg PO DAILY PRN Allergy Symptoms 08/10/22 12/05/24 12/05/24 History iron,carbonyl 65 mg-vitamin C 125 1 tab PO DAILY 11/10/23 12/05/24 12/05/24 History mg tablet,delayed release (Vitron-C) atorvastatin 20 mg tablet 40 mg PO BEDTIME 02/02/24 12/05/24 05/13/24 History multivitamin 1 tab PO DAILY 11/28/24 12/05/24 Unknown History Exam Height,Weight and Vital Signs: Height 4 ft 3 in Weight 48.534 kg Pertinent Lab Results Pertinent Lab Results: Laboratory Tests 11/28/24 08:56 WBC 5.0 RBC 4.65 Hgb 13.6 Hct 40.8 MCV 87.7 MCH 29.2 MCHC 33.3 RDW 13.8 Plt Count 200 MPV 10.7 Immature Gran % (Auto) 0.2 Neut % (Auto) 52.9 Lymph % (Auto) 39.3 Hubbard % (Auto) 6.0 Eos % (Auto) 0.8 Baso % (Auto) 0.8 Lymph # (Auto) 2.0 Hubbard # (Auto) 0.3 Eos # (Auto) 0.0 Baso # (Auto) 0.0 Abs Immat Gran (auto) 0.01 Absolute Neuts (auto) 2.6 Absolute Nucleated RBC 0.000 Nucleated RBC % (auto) 0.0 PT 12.3 INR 1.1 APTT 31.3 Sodium 140 Potassium 3.8 Chloride 106 Carbon Dioxide 26 Anion Gap 12 BUN 20 H Creatinine 0.62 Estim Creat Clear Calc TNP Estimated GFR > 60 Random Glucose 90 Calcium 9.0 Total Bilirubin 0.3 AST 32 H ALT 38 H Alkaline Phosphatase 72 Total Protein 7.0 Albumin 4.1 Blood Type O Positive Antibody Screen NEGATIVE Narrative Narrative: EKG 11/2024 NSR Assessment and Plan Assessment Anesthesia Assessment: Chart Reviewed Final Anesthetic Review Family History of Problems with Anesthesia: No History of Problems with Anesthesia: No Documented by User: Taty Jacoem MD 12/05/24 09:44 PMF Past Medical History Medical History Elevated cholesterol DJD (degenerative joint disease) GERD (gastroesophageal reflux disease) Stone in kidney Family History Family History Mother Diabetes Hypertension Fibromyalgia Arthritis Father Stomach cancer Diabetes Hypertension Blind Sister Arthritis Sister No problems noted. Brother No problems noted. Son No problems noted. Surgical History Surgical History S/P brachioplasty S/P panniculectomy Hx of hysterectomy History of sleeve gastrectomy H/O lithotripsy H/O: knee surgery History of ankle surgery Hx of section Social History Social History Household Members Other:: son-age 18 Are you a primary patient care specialist to a significant other at home: No Do you presently have visiting nurse or other home services: No Alcohol intake: never Patient Tobacco Use Status: Former Tobacco user Tobacco use type: Cigarette Years Smoked: 1 Use of substances other than those prescribed or required for medical reasons: No Have you been hit, kicked, punched, or otherwise hurt by someone within the past year? If so, by whom?: No Are you DNR?: No Advance Directives: No Advance Directives Information Provided: Yes Advance Directives on File: No Recently lost weight without trying: No Eating poorly because of decreased appetite: No Nutrition Risks: No Nutritional Risk Patient : No : No Poor oral hygiene: No service: No Current occupational status: employed Meds Allergies Allergy/AdvReac Type Severity Reaction Status Date / Time aspirin [ASPIRIN] Allergy Severe severe Verified 08/14/24 08:57 facial swelling/redness Home Medications ?Medication ?Instructions ?Recorded ?Confirmed ?Last Taken ?Type cetirizine 10 mg tablet 10 mg PO DAILY PRN Allergy Symptoms 08/10/22 12/05/24 12/05/24 History iron,carbonyl 65 mg-vitamin C 125 1 tab PO DAILY 11/10/23 12/05/24 12/05/24 History mg tablet,delayed release (Vitron-C) atorvastatin 20 mg tablet 40 mg PO BEDTIME 02/02/24 12/05/24 05/13/24 History multivitamin 1 tab PO DAILY 11/28/24 12/05/24 Unknown History Exam Airway Mallampati Class: II TM Dist: >3cm Neck ROM: Full Loose/Missing/Broken Teeth: No Heart: RRR Lungs: CTA Assessment and Plan Assessment Anesthesia Assessment: Anesthesia Plan Discussed Final Anesthetic Review NPO: Yes ASA Class: II Final Preanesthetic Review: Meds/Allgs Chart Reviewed, Consent Obtained/Reviewed and Anes Risks/Benef Reviewed Patient Risk: Low Procedure Risk: Low Anesthetic Plan Anesthetic Plan: GA Disposition: Standard PACU
[2024-12-05] VITALS (16 sets, daily range): BP systolic 87–112; BP diastolic 41–66; PULSE 74–94; RESP 12–16; TEMP 36.1–36.9; O2SAT 98–100
--- NOTE | 2024-12-05 07:46 | W.MHC.F2F ---
Service Date Service Date: 12/05/24 Encounter Date of encounter: 12/05/24 Reasons for Services Signs and symptoms assessed: s/p thighplasty Homebound: Leaving the home is medically contraindicated at this time without the asist of a device and/or another person due th the listed conditions above and below. Reason homebound: unable to drive Certification: Based on the above findings, I certify that this patient is confined to the home and needs intermittent half-way care, physical therapy and/or speech therapy, or continues to need occupational therapy. The patient is under my care, and I have initiated the establishment of the plan of care. The patient will be followed by a physician who will periodically review the plan of care. Time Spent With Patient Time: Total time managing care of this patient today __30__ minutes.
[2024-12-05] MEDS: Lactated Ringers 1,000 ML 100 ML IVCONT (08:39)
--- NOTE | 2024-12-05 10:39 | MHC.SHP ---
Pre-Procedural Eval Section A - 24 Hr Update-Section A only Date of Service: 12/05/24 The patient is an INPATIENT: No The patient has been examined within 24 hours of the surgical procedure. The History & Physical has been completed within 30 days and I have reviewed it.: Yes Section B - Complete if H&P > 30 days Chief Complaint: Excessive and redundant skin and subcut tissue Relevant Family History (Specify if Yes): No Relevant Social History: None Present Medications: None Medical History: No relevant PMH History of Previous Operations: Relevant previous surgery/procedure and date(s) (Laparoscopic sleeve gastrectomy) Allergies: Allergies Allergy/AdvReac Type Severity Reaction Status Date / Time aspirin [ASPIRIN] Allergy Severe severe Verified 08/14/24 08:57 facial swelling/redness Review of Systems Sugical H&P ROS: Negative: Constitution, Cardiovascular, Respiratory, Neurological, Psychiatric, Hem-Onc, Allergic/Immunologic, Gastrointestinal, Genitourinary, Musculoskeletal, Integumentary, Endocrine and Eyes/Ears/Nose/Throat Exam Surgical H&P Exam: Normal: HEENT, Normal: Heart, Normal: Lungs, Normal: Extremities, Normal: Abdomen, Normal: Skin and Normal: Neurological Plan Diagnosis/Plan: Unchanged I have reviewed the history and physical and performed a pertinent physical examination on my patient. No changes have occurred unless specified. Time Spent With Patient Time: Total time managing care of this patient today ____ minutes.
--- NOTE | 2024-12-05 10:48 | P.BOP_ITS ---
Brief Operative Note Date of Service: 12/05/24 Pre-op diagnosis: Excess skin Post-op diagnosis: same Procedure: PROCEDURE: Bilateral thighplasty INDICATION: This a 39 year old female who underwent laparoscopic sleeve gastrectomy on 11/10/2022. She had an excellent result achieving a BMI of 30.1 kg/m2 with a total weight loss of 153lbs, or 58% of her TBWL. As a result of the massive weight loss, she has developed skin rashes and chafing in medial thighs. On exam she has extreme skin laxity due to massive weight loss and age and friction between the?inner thighs. Bilateral thighplasty was recommended. PROCEDURE: The incisions were appropriately marked at the preop area with the patient standing and laying down. After induction of general anesthesia a Minor catheter and pneumatic compression devices were placed. The patient was prepped and draped in the usual sterile manner and the incisions were marked again and confirmed. The legs were flexed at the knees and abducted at the hip level.?The anterior incision was made first. I did not commit to the posterior incision until dissection was completed and I could assess the appropriate location for the posterior incision to prevent excessive tension. Cautery was used to separate the skin from subcutaneous tissues. Careful attention was paid to make sure that the plain of excision was superficial as close to the skin as possible and superior to the fascia but without causing skin ischemia. The right thigh skin was 30 cm x 8 cm and the left 27 cm x 10 cm. Skin was closed in two layers using interrupted 3.0 Monocryl sutures for the dermis and 4.0 subcuticular Monocryl suture for the skin. The was awaken and was transferred to the recover room in a stable condition. I was present and performed the entire procedure. Juan Pablo Feliciano was the quality assistant.. Morales Miner MD, PhD, FACS Surgeon: Darrian Miner MD Surgeon: Darrian Miner MD Anesthesia: GETA and local Was an Student Admissions Clerk used for this Procedure?: No Student Admissions Clerk: Nia Feliciano Estimated blood loss (mL): 10 IV fluids (mL): 2,500 Urine output (mL): 250 Pathology: other (1) Left thigh skin, 2) Right thigh skin) Condition: stable Disposition: PACU
[2024-12-05] MEDS: droPERidol 5 MG/2 ML VIAL 0.625 MG IVPUSH (18:07)
== END 2024-12-05 18:33 | disposition home or self-care (01) ==
PROVIDERS: PCP Internal Medicine; Visit Provider Surgery
PROC: (CPT 15832; principal; 2024-12-05 10:20)
DX: L98.7 Excessive and redundant skin and subcutaneous tissue (principal); R63.4 Abnormal weight loss; Z68.30 Body mass index [BMI] 30.0-30.9, adult; L30.4 Erythema intertrigo; R21 Rash and other nonspecific skin eruption; Z98.84 Bariatric surgery status; K21.9 Gastro-esophageal reflux disease without esophagitis; E78.00 Pure hypercholesterolemia, unspecified; M19.90 Unspecified osteoarthritis, unspecified site; Z88.6 Allergy status to analgesic agent; Z87.442 Personal history of urinary calculi; Z98.890 Other specified postprocedural states; Z87.891 Personal history of nicotine dependence
CPT/HCPCS: 15832; 36415; 80053; 85025; 85610; 85730; 86850; 86900; 86901; 88304; J0131; J0690; J1171; J1790; J2003; J2004; J2250; J2371; J2704; J3010

== ENCOUNTER → 2024-12-05 10:20 | Outpatient (BNV) | payer OTHER, SELFPAY | PROVIDERS: PCP Internal Medicine; Visit Provider Physician Assistant Surgical | DX: L98.7 Excessive and redundant skin and subcutaneous tissue (principal) | CPT/HCPCS: 15832; G0180 ==

== ENCOUNTER 2024-12-12 14:55 | Outpatient (AMB) | payer OTHER, SELFPAY ==
--- NOTE | 2024-12-12 15:22 | A.OFFVIS_ITS ---
VS Expanded 12/12/24 15:27 BP 121/72 Blood Pressure Location Rt brachial Blood Pressure Position Sitting Pulse 85 Pulse Source Pulse Oximeter Temp 98.3 F Temperature Source Temporal Artery Scan Pulse Oximetry 100 Oxygen Delivery Method Room Air Intake Visit Reasons: (OV) s/p Thighplasty 12/05/24 Allergies aspirin [ASPIRIN] Allergy (Severe, Verified 12/12/24 15:27) severe facial swelling/redness HPI Comments Details: Patient is a pleasant 39-year-old female who returns to the office today in follow-up. She is status post thigh plasty on 12/05/2024. She reports no complaints of pain. She has very minimal if any drainage at all. There was just some on the distal aspect of the right thigh this morning as she had been getting up and getting ready to come to her appointment. Otherwise no drainage noted. She continues her antibiotics and meal plan as directed by Dr. Miner. [facility] Medical History Elevated cholesterol DJD (degenerative joint disease) GERD (gastroesophageal reflux disease) Stone in kidney Surgical History S/P brachioplasty S/P panniculectomy Hx of hysterectomy History of sleeve gastrectomy H/O lithotripsy H/O: knee surgery History of ankle surgery Hx of section Family History Mother Diabetes Hypertension Fibromyalgia Arthritis Father Stomach cancer Diabetes Hypertension Blind Sister Arthritis Sister No problems noted. Brother No problems noted. Son No problems noted. Social History Household Members Other:: son-age 18 Are you a primary transitional care nurse to a significant other at home: No Do you presently have visiting nurse or other home services: No Alcohol intake: never Patient Tobacco Use Status: Former Tobacco user Tobacco use type: Cigarette Years Smoked: 1 service: No Current occupational status: employed Physical Exam Skin Other: Very minimal erythema noted to the mid right thigh incision. No evidence of dehiscence. No warmth. No tenderness. No drainage. Assessment & Plan Assessment & Plan (1) S/P thighplasty: Code(s): Z98.890 - Other specified postprocedural states Category: Surgical Plan: Doing well postoperatively. Continue with dressing changes. Continue antibiotics. Continue meal plan. Return to the office 1 week.
[2024-12-12 15:27] VITALS: BP 121/72; PULSE 85; TEMP 36.8; O2SAT 100
== END 2024-12-12 15:23 | disposition home or self-care (01) ==
PROVIDERS: PCP Internal Medicine; Visit Provider Physician Assistant Surgical
DX: Z98.890 Other specified postprocedural states (principal)
CPT/HCPCS: 99024

== ENCOUNTER → 2024-12-12 14:55 | Outpatient (BNVA) | payer OTHER, SELFPAY | PROVIDERS: PCP Internal Medicine; Visit Provider Physician Assistant Surgical | DX: Z48.817 Encounter for surgical aftercare following surgery on the skin and subcutaneous tissue (principal); Z98.890 Other specified postprocedural states | CPT/HCPCS: 99212 ==

== ENCOUNTER 2024-12-18 13:20 | Outpatient (AMB) | payer OTHER, SELFPAY ==
--- NOTE | 2024-12-18 13:30 | A.OFFVIS_ITS ---
VS Expanded 12/18/24 13:49 BP 112/55 L Blood Pressure Location Rt brachial Blood Pressure Position Sitting Pulse 80 Pulse Source Pulse Oximeter Temp 97.7 F Temperature Source Temporal Artery Scan Pulse Oximetry 99 Oxygen Delivery Method Room Air Intake Visit Reasons: (OV) s/p Thighplasty 12/05/24 Allergies aspirin [ASPIRIN] Allergy (Severe, Verified 12/18/24 13:50) severe facial swelling/redness HPI Comments Details: Patient is a pleasant 39-year-old female who returns to the office today in follow-up. She underwent thigh plasty on 12/05/2024. She reports doing well offers no complaints and is quite satisfied with the results of her procedures less far. She continues the meal plan as directed by Dr. Miner as well as oral antibiotics. [facility] Medical History Elevated cholesterol DJD (degenerative joint disease) GERD (gastroesophageal reflux disease) Stone in kidney Surgical History S/P brachioplasty S/P panniculectomy Hx of hysterectomy History of sleeve gastrectomy H/O lithotripsy H/O: knee surgery History of ankle surgery Hx of section Family History Mother Diabetes Hypertension Fibromyalgia Arthritis Father Stomach cancer Diabetes Hypertension Blind Sister Arthritis Sister No problems noted. Brother No problems noted. Son No problems noted. Social History Household Members Other:: son-age 18 Are you a primary acute care physician to a significant other at home: No Do you presently have visiting nurse or other home services: No Alcohol intake: never Patient Tobacco Use Status: Former Tobacco user Tobacco use type: Cigarette Years Smoked: 1 service: No Current occupational status: employed Physical Exam Vital Signs: Last Vital Signs Temp 97.7 F 12/18/24 13:49 Pulse 80 12/18/24 13:49 BP 112/55 L 12/18/24 13:49 Pulse Ox 99 12/18/24 13:49 Oxygen Delivery Method Room Air 12/18/24 13:49 Skin Other: Healing incisions bilateral thighs. No evidence of infection or dehiscence. Assessment & Plan Assessment & Plan (1) S/P thighplasty: Code(s): Z98.890 - Other specified postprocedural states Category: Surgical Plan: Overall, the patient is doing very well. She has no complaints. She is very happy with the results of her procedure. Continue current antibiotics, meal plan and return to the office as scheduled
[2024-12-18 13:49] VITALS: BP 112/55; PULSE 80; TEMP 36.5; O2SAT 99
--- OUTSIDE RECORDS SUMMARY | 2024-12-18 15:27 | XMS_ITS | Data Portability ---
Author Organization [place] - [facility], Allergy Address [address] [place] [phone] Care Team Providers Care Equipment Services Associate Name Role Phone CAMILLE MELENDEZ Primary Care Provider Assessment Encounter Date Assessment Date Assessment LastModified by Organization Details LastModified Time 11/04/2024 11/04/2024 39 year old fema le with itchy ears. On examination today there is dry flaky skin of the canal meatus bilaterally. She has notably absent cerumen. No evidence of infection. Middle ear space well aerated bilaterally. Discussed the importance of avoiding instrumentation of the ears, and how this can lead to worsening itching and even infections as well. Discussed use of distilled white vinegar drops to help with cerumen management instead. Suggest a two week course of the Lotrisone cream to help with the skin changes of the canal meatus bilaterally. Follow up for persistent symptoms. [email or web address] Not available 11/04/2024 11:53:27 Plan of Treatment Reminders Order Date Submit Date Provider Last Modified By Organization Details Last Modified Time Details Appointments None recorded. Lab None recorded. Referral None recorded. Procedures None recorded. Surgeries None recorded. Imaging None recorded. Medication Orders clotrimaz ole-betam ethasone 1 %-0.05 % topical cream 024 024 [facility]/Pharmacy #[id number], [address] [place], [address], 11:53:56 Patient TargetsNo targets recorded. Patient InstructionsNo instructions recorded. Reason for Referral None Reported. Problems Name Problem SNOMED Code Status Onset Date Resolution Date Notes Provider Name and Address Organization Details Recorded Time Acute eczematoi d otitis externa 70785932 Active 2021 Acute eczematoi d otitis externa, bilateral ; Note: Date Diagnosed : 2 10:17 AM (H60.543) Not Available [facility] 4 03:22:52 Diffuse otitis externa 27446757 Active 2018 Diffuse otitis externa, left ear; Note: Date Diagnosed : 04/08/2019 3:42 PM (H60.312) Not Available [facility] 4 03:22:52 Otalgia of left ear 7688709375 Active 2018 Otalgia, left ear; Note: Date Diagnosed : 04/08/2019 3:48 PM (H92.02) Not Available [facility] 4 03:22:52 Abnormal auditory perceptio n 04276736 Active 2021 Other abnormal auditory perceptio ns, bilateral ; Note: Date Diagnosed : 2 10:17 AM (H93.293) Not Available [facility] 4 03:22:52 Itching of skin 041525961 Active 2023 CHRISTIAN RODRIGUEZ PA-C [address] [place] [address],[place] [address], [place], [address] , [facility] 4 11:51:30 Chronic otitis externa 53759908 Active 2023 CHRISTIAN RODRIGUEZ PA-C [address] [place] [address],[place] [address], [place], [address] , [facility] 4 11:51:41 Problem Notes None recorded. Medical Equipment None Reported. Allergies Allergen ID Allergen Name Allergen Category Reaction Reaction Severity Criticality Documentation Date Start Date Code Code System Note Provider Name and Address Organization Details Recorded Time 88700 aspirin medicatio n other Not available Not available 04/09/2024 1191 RxNorm React ion: unkno wn, unspe cifie d;; Not Available [facility] 4 00:48:28 Medications Name Sig Start Date Stop Date Status Note LastModified by Organization Details LastModified Time atorvastat in 40 mg tablet TOME 1 TABLETA POR VIA ORAL TODOS LOS HEATH AL ACOSTARSE active Not Available Not Available No t Available cetirizine 10 mg tablet TOME 1 TABLETA POR V A ORAL TODOS LOS D active Not Available Not Available No t Available thiamine HCl (vitamin B1) 100 mg tablet TOME 1 TABLETA POR V A ORAL TODOS LOS D FOR 90 DAYS active Not Available Not Available No t Available amoxicilli n 500 mg tablet TOME OZZIE TABLETA BIBI VECES AL D A HASTA QUE SE TERMINE active Not Available Not Available No t Available oxycodone- acetaminop hen 5 mg-325 mg tablet 2018 active Medicatio n ID: [id number] Du ration Value: 4 Brand Name: oxycodone -acetamin ophen Sen d Method: E-Prescri bed Subs Allowed: subs OK Medica tionGener icName: oxycodone -acetamin ophen Not Available Not Available Not Available vitamin A 3,000 mcg (10,000 unit) capsule 3000 MCG ORALLY DAILY FOR 3 MONTHS active Not Available Not Available No t Available cephalexin 500 mg capsule TOME 1 C PSULA POR V A ORAL CADA DOCE HORAS active Not Available Not Available No t Available ferrous sulfate 325 mg (65 mg iron) tablet TOME OZZIE TABLETA POR V A ORAL TODOS LOS D active Not Available Not Available No t Available clotrimazo le-betamet hasone 1 %-0.05 % topical cream apply 1 small amount to skin of external canal meatus bilateral ly twice daily x 2 weeks active Not Available Not Available No t Available clotrimazo le 1 % topical solution 2018 active Medicatio n ID: [id number] Pr escribed By Name: Delmer Lora MD Brand Name: clotrimaeduardo rowan Send Method: E-Prescri bed Subs Allowed: subs OK Specia l Instructi on: 5 drops to affected ear twice a day Medic ationGene ricName: clotrimaz ole Not Available Not Available Not Available docusate sodium 100 mg capsule TOME 1 C PSULA POR V A ORAL TODOS LOS D active Not Available Not Available No t Available diclofenac sodium 75 mg tablet,del ayed release TOME 1 TABLETA POR V A ORAL DOS VECES AL D A active Not Available Not Available No t Available ibuprofen 600 mg tablet TOME 1 TABLETA POR V A ORAL BIBI VECES AL D A CON ALIMENTO CUANDO SEA NECESARIO active Not Available Not Available No t Available ketoconazo le 2 % topical cream APLIQUE AL RENATE AFECTADA DOS VECES AL D A active Not Available Not Available No t Available ondansetro n 4 mg disintegra ting tablet active Not Available Not Available Not Available cefdinir 300 mg capsule 2018 active Medicatio n ID: [id number] Du ration Value: 10 Brand Name: cefdinir Send Method: E-Prescri bed Subs Allowed: subs OK Medica tionGener icName: cefdinir Not Available Not Available Not Available clotrimazo le 1 % topical cream APLIQUE DOS VECES AL D A active Not Available Not Available No t Available calcium 200 mg (as calcium citrate 950 mg) tablet TAKE ONE TABLET ORALLY 2 TIMES A DAY active Not Available Not Available No t Available vitamin A palmitate 3,000 mcg (10,000 unit) capsule TOME OZZIE TABLETA POR V A ORAL TODOS LOS D active Not Available Not Available No t Available Vitamin D3 25 mcg (1,000 unit) capsule TOME 1 C PSULA POR V A ORAL TODOS LOS D active Not Available Not Available No t Available ofloxacin 5 drop 2018 active Medicatio n ID: [id number] Du ration Value: 10 Brand Name: ofloxacin Send Method: E-Prescri bed Subs Allowed: subs OK Specia l Instructi on: 5 drops into affected ear twice daily for 10 days Medi cationGen ericName: ofloxacin Not Available Not Available Not Available Tylenol 2018 active Medicatio n ID: [id number] Br and Name: tylenol S end Method: E-Prescri bed Subs Allowed: subs OK Medica tionGener icName: tylenol Not Available Not Available Not Available fluocinolo ne acetonide oil 0.01 % ear drops Instill 2 drop into both ears twice a day as needed 2021 active Medicatio n ID: [id number] Du ration Value: 14 Brand Name: fluocinol one acetonide oil Send Method: E-Prescri bed Subs Allowed: subs OK Medica tionGener icName: fluocinol one acetonide oil Not Available Not Available Not Available Vitron-C 65 mg iron-125 mg tablet,del ayed release TOME OZZIE TABLETA TODOS LOS D AL ACOSTARSE active Not Available Not Available No t Available Vitals Date Recorded Body weight Body mass index (BMI) Body height Provider Name and Address Organization Details Last Updated DateTime 11/04/2024 39292.98 g 30.4 kg/m2 127 cm Susanna Ramos [place] - [facility] 11/04/2024 11:29:29 Social History None recorded. Functional Status None recorded. Mental Status None recorded. Family History Nothing Reported. Medical History No medical history recorded. Gynecological HistoryNo gynecological history recorded. Obstetrics History GPAL:G 0 P 0 0 0 0 Past Encounters Encounter ID Performer Location Encounter Start Date Encounter Closed Date Diagnosis/Indication Diagnosis SNOMED-CT Code Diagnosis ICD10 Code Diagnosis Note [id number] MODESTO DIEGO MD ENTS [facility] on [address] [place] [phone] 11/04/2024 11:16:40 11/04/2024 11:49:00 Itching of skin 001706143 L29.9 Chronic ot itis externa 02535023 H60.63 Health Concerns Section Related Observation LastModified by Organization Detai ls LastModified Time None Recorded Concern Status LastModified by Organization Details LastModified Time None Recorded Advance Directives Directive None Recorded Payers Encounter Date Sequence Insurance Name Policy Number Policy Carmen Covered Member ID Carmen Member ID Guarantor Name 11/04/2024 1 [facility] [facility] [place] (MEDICAID HMO) [id number] Shari TreviñoMukesh [facility] [id number] Shari Lyons Notes Date Note Type Note Provider Name and Address Organization Details Recorded Time 11/04/2024 text/html 39 year old rand wick presents today for evaluation of itchy ears.She was last seen in 2021 for similar symptoms. She was given Lotrisone cream and fluocinolone drops. She reports the cream helps, but a few days after stopping it worsens again. She also feels there is a foul smell. She uses a metal instruments to clean her ears daily and often uses it for itching. Sometimes she cannot hear well. MODESTO DIEGO MD [address] [place] [address], [phone], [place] - [facility] 11/05/2024 10:56:41 OBGyn Episode No OBEpisode recorded.
== END 2024-12-18 14:23 | disposition home or self-care (01) ==
PROVIDERS: PCP Internal Medicine; Visit Provider Physician Assistant Surgical
DX: Z98.890 Other specified postprocedural states (principal)
CPT/HCPCS: 99024

== ENCOUNTER → 2024-12-18 13:20 | Outpatient (BNVA) | payer OTHER, SELFPAY | PROVIDERS: PCP Internal Medicine; Visit Provider Physician Assistant Surgical | DX: Z48.817 Encounter for surgical aftercare following surgery on the skin and subcutaneous tissue (principal); Z98.890 Other specified postprocedural states | CPT/HCPCS: 99212 ==

== ENCOUNTER 2024-12-27 09:27 | Outpatient (AMB) | payer OTHER, SELFPAY ==
--- OUTSIDE RECORDS SUMMARY | 2024-12-27 09:55 | XMS_ITS | Data Portability ---
Author Organization [place] - [facility], Allergy Address [address] [place] [phone] Care Team Providers Care Online Media Buyer Name Role Phone CAMILLE MELENDEZ Primary Care [...] 1 %-0.05 % topical cream 024 024 [facility]/Pharmacy #[id number], [address] [place], [address], 11:53:56 Patient TargetsNo targets recorded. Patient InstructionsNo instructions recorded. Reason for Referral None Reported. Problems Name Problem SNOMED Code Status Onset Date Resolution Date Notes Provider Name and Address Organization Details Recorded Time Acute eczematoi d otitis externa 25391045 Active 2021 Acute eczematoi d otitis externa, bilateral ; Note: Date Diagnosed : 2 10:17 AM (H60.543) Not Available [facility] 4 03:22:52 Diffuse otitis externa 36274122 Active 2018 Diffuse otitis externa, left ear; Note: Date Diagnosed : 04/08/2019 3:42 PM (H60.312) Not Available [facility] 4 03:22:52 Otalgia of left ear 6271630223 Active 2018 Otalgia, left ear; Note: Date Diagnosed : 04/08/2019 3:48 PM (H92.02) Not Available [facility] 4 03:22:52 Abnormal auditory perceptio n 53707440 Active 2021 Other abnormal auditory perceptio ns, bilateral ; Note: Date Diagnosed : 2 10:17 AM (H93.293) Not Available [facility] 4 03:22:52 Itching of skin 121260448 Active 2023 CHRISTIAN RODRIGUEZ PA-C [address] [place] [address],[place] [address], [place], [address] , [facility] 4 11:51:30 Chronic otitis externa 55480950 Active 2023 CHRISTIAN RODRIGUEZ PA-C [address] [place] [address],[place] [address], [place], [address] , [facility] 4 11:51:41 Problem Notes None recorded. Medical Equipment None Reported. Allergies Allergen ID Allergen Name Allergen Category Reaction Reaction Severity Criticality Documentation Date Start Date Code Code System Note Provider Name and Address Organization Details Recorded Time 62306 aspirin medicatio n other Not available Not available 04/09/2024 1191 RxNorm React ion: unkno wn, unspe cifie d;; Not Available [facility] 4 00:48:28 Medications Name Sig Start Date [...] mg tablet 2018 active Medicatio n ID: [id number] Du ration Value: 4 Brand Name: oxycodone [...] topical solution 2018 active Medicatio n ID: [id number] Pr escribed By Name: Delmer Lora MD [...] mg capsule 2018 active Medicatio n ID: [id number] Du ration Value: 10 Brand Name: cefdinir [...] 5 drop 2018 active Medicatio n ID: [id number] Du ration Value: 10 Brand Name: ofloxacin Send Method: E-Prescri bed Subs Allowed: subs OK Specia l Instructi on: 5 drops into affected ear twice daily for 10 days Medi cationGen ericName: ofloxacin Not Available Not Available Not Available Tylenol 2018 active Medicatio n ID: [id number] Br and Name: tylenol S end Method: E-Prescri bed Subs Allowed: subs OK Medica tionGener icName: tylenol Not Available Not Available Not Available fluocinolo ne acetonide oil 0.01 % ear drops Instill 2 drop into both ears twice a day as needed 2021 active Medicatio n ID: [id number] Du ration Value: 14 Brand Name: fluocinol [...] Address Organization Details Last Updated DateTime 11/04/2024 20729.98 g 30.4 kg/m2 127 cm Susanna Ramos [place] - [facility] 11/04/2024 11:29:29 Social History None recorded. Functional Status None recorded. Mental Status None recorded. Family History Nothing Reported. Medical History No medical history recorded. Gynecological HistoryNo gynecological history recorded. Obstetrics History GPAL:G 0 P 0 0 0 0 Past Encounters Encounter ID Performer Location Encounter Start Date Encounter Closed Date Diagnosis/Indication Diagnosis SNOMED-CT Code Diagnosis ICD10 Code Diagnosis Note [id number] MODESTO DIEGO MD ENTS [facility] on [address] [place] [phone] 11/04/2024 11:16:40 11/04/2024 11:49:00 Itching of skin 576363805 L29.9 Chronic ot itis externa 21080441 H60.63 Health Concerns Section Related Observation LastModified by Organization Detai ls LastModified Time None Recorded Concern Status LastModified by Organization Details LastModified Time None Recorded Advance Directives Directive None Recorded Payers Encounter Date Sequence Insurance Name Policy Number Policy Carmen Covered Member ID Carmen Member ID Guarantor Name 11/04/2024 1 [facility] [place] [facility] [place]AN (MEDICAID HMO) [id number] Shari [facility] [id number] Shari Lyons Notes Date Note Type [...] she cannot hear well. MODESTO DIEGO MD [address] [place] [address], [phone], [place] - [facility] 11/05/2024 10:56:41 OBGyn Episode No OBEpisode recorded.
--- NOTE | 2024-12-27 10:26 | A.OFFVIS_ITS ---
Intake Visit Reasons: (OV) s/p Thighplasty 12/05/24 *SEE COMMENTS* Allergies aspirin [ASPIRIN] Allergy (Severe, Verified 12/18/24 13:50) severe facial swelling/redness HPI Comments Details: Feels well. No pain or fever She is very happy with the results and sees significant difference from before. Is doing TWO FAIRLIFE (mix TWO oz of Fairlife with SIX oz almond milk) at 7am- 9am and 10am-12pm, two IQ protein bars at 1pm-3pm and 4pm-6pm and one meal at 7pm (4 forks of protein and 4 forks of salad or vegetables). REPLACED BY [facility] Medical History Elevated cholesterol DJD (degenerative joint disease) GERD (gastroesophageal reflux disease) Stone in kidney Surgical History S/P brachioplasty S/P panniculectomy Hx of hysterectomy History of sleeve gastrectomy H/O lithotripsy H/O: knee surgery History of ankle surgery Hx of section Family History Mother Diabetes Hypertension Fibromyalgia Arthritis Father Stomach cancer Diabetes Hypertension Blind Sister Arthritis Sister No problems noted. Brother No problems noted. Son No problems noted. Social History Household Members Other:: son-age 18 Are you a primary animal care provider to a significant other at home: No Do you presently have visiting nurse or other home services: No Alcohol intake: never Patient Tobacco Use Status: Former Tobacco user Tobacco use type: Cigarette Years Smoked: 1 service: No Current occupational status: employed Physical Exam Extrem Right lower extremity: normal to inspection (no calf tenderness) and hip/thigh (Incision has healed well. No infection) Left lower extremity: normal to inspection (no calf tenderness) and hip/thigh (Incision has healed well. No infection) Assessment & Plan Assessment & Plan (1) S/P thighplasty: Code(s): Z98.890 - Other specified postprocedural states Category: Medical Plan: 1. No need for further dressing changes or steri strips. Continue to apply the joyce wrap loosely for 2 more weeks and then leave the incisions uncovered 2. Continue to avoid exercises for one more month 3. Stop antibiotics 4. Continue present nutritional plan of TWO FAIRLIFE (mix TWO oz of Fairlife with SIX oz almond milk) at 7am-9am and 10am-12pm, two IQ protein bars at 1pm- 3pm and 4pm-6pm and one meal at 7pm (4 forks of protein and 4 forks of salad or vegetables).
== END 2024-12-27 10:31 | disposition home or self-care (01) ==
PROVIDERS: PCP Internal Medicine; Visit Provider Surgery
DX: Z98.890 Other specified postprocedural states (principal)
CPT/HCPCS: 99024

== ENCOUNTER → 2024-12-27 09:27 | Outpatient (BNVA) | payer OTHER, SELFPAY | PROVIDERS: PCP Internal Medicine; Visit Provider Surgery | DX: Z48.817 Encounter for surgical aftercare following surgery on the skin and subcutaneous tissue (principal); Z71.3 Dietary counseling and surveillance; Z98.890 Other specified postprocedural states | CPT/HCPCS: 99212 ==

== ENCOUNTER 2025-01-03 11:07 | Outpatient (AMB) | payer OTHER, SELFPAY ==
--- NOTE | 2025-01-03 11:15 | MHC.OFFVISWM ---
VS Expanded 01/03/25 11:33 BP 137/65 Blood Pressure Location Rt brachial Blood Pressure Position Sitting Pulse 81 Pulse Source Pulse Oximeter Temp 98.1 F Temperature Source Temporal Artery Scan Pulse Oximetry 100 Oxygen Delivery Method Room Air Intake Visit Reasons: (OV) s/p Thighplasty 12/05/24 Allergies aspirin [ASPIRIN] Allergy (Severe, Verified 12/18/24 13:50) severe facial swelling/redness HPI Comments Details: Pleasant 39-year-old female returns to the office today in follow-up. She is status post bilateral thigh plasty on 12/05/2024. Overall, she is very satisfied with the results of her procedure. She was told to advise exercise until the beginning of January. She has no complaints of pain and is feeling well. Meal plan: TWO FAIRLIFE (mix TWO oz of Fairlife with SIX oz almond milk) at 7am-9am and 10am-12pm, two IQ protein bars at 1pm-3pm and 4pm-6pm and one meal at 7pm (4 forks of protein and 4 forks of salad or vegetables). [facility] Medical History Elevated cholesterol DJD (degenerative joint disease) GERD (gastroesophageal reflux disease) Stone in kidney Surgical History S/P brachioplasty S/P panniculectomy Hx of hysterectomy History of sleeve gastrectomy H/O lithotripsy H/O: knee surgery History of ankle surgery Hx of section Family History Mother Diabetes Hypertension Fibromyalgia Arthritis Father Stomach cancer Diabetes Hypertension Blind Sister Arthritis Sister No problems noted. Brother No problems noted. Son No problems noted. Social History Household Members Other:: son-age 18 Are you a primary customer care voice consultant to a significant other at home: No Do you presently have visiting nurse or other home services: No Alcohol intake: never Patient Tobacco Use Status: Former Tobacco user Tobacco use type: Cigarette Years Smoked: 1 service: No Current occupational status: employed Physical Exam Skin Other: Bilateral thigh plasty is healing very nicely. No evidence of dehiscence or infection. Assessment & Plan Assessment & Plan (1) S/P thighplasty: Code(s): Z98.890 - Other specified postprocedural states Category: Surgical Plan: Overall doing well. Incisions healing nicely. Patient is very satisfied with the results of her procedure. We will continue current treatment plans. Advised to avoid exercise for the rest of this month. She will continue to wrap her legs with Haja bandages for 1 more week. Return to clinic end of the month
[2025-01-03 11:33] VITALS: BP 137/65; PULSE 81; TEMP 36.7; O2SAT 100
--- OUTSIDE RECORDS SUMMARY | 2025-01-03 12:11 | XMS_ITS | Data Portability ---
Author Organization [place] - [facility], Allergy Address [address] [place] [address] Care Team Providers Care Counter Cutter Name Role Phone CAMILLE MELENDEZ Primary Care Provider [phone] Assessment Encounter Date Assessment Date Assessment LastModified [...] 1 %-0.05 % topical cream 024 024 [facility] #[id number], [address] [place], [address], 11:53:56 Patient TargetsNo targets recorded. Patient InstructionsNo instructions recorded. Reason for Referral None Reported. Problems Name Problem SNOMED Code Status Onset Date Resolution Date Notes Provider Name and Address Organization Details Recorded Time Acute eczematoi d otitis externa 55818094 Active 2021 Acute eczematoi d otitis externa, bilateral ; Note: Date Diagnosed : 2 10:17 AM (H60.543) Not Available [facility] 4 03:22:52 Diffuse otitis externa 31720848 Active 2018 Diffuse otitis externa, left ear; Note: Date Diagnosed : 04/08/2019 3:42 PM (H60.312) Not Available [facility] 4 03:22:52 Otalgia of left ear 7825835962 Active 2018 Otalgia, left ear; Note: Date Diagnosed : 04/08/2019 3:48 PM (H92.02) Not Available [facility] 4 03:22:52 Abnormal auditory perceptio n 51565077 Active 2021 Other abnormal auditory perceptio ns, bilateral ; Note: Date Diagnosed : 2 10:17 AM (H93.293) Not Available [facility] 4 03:22:52 Itching of skin 751975593 Active 2023 CHRISTIAN RODRIGUEZ PA-C [address] [place] [address],[place] [address], [place], [address] , [facility] 4 11:51:30 Chronic otitis externa 29013148 Active 2023 CHRISTIAN RODRIGUEZ PA-C [address] [place] [address],[place] [address], [place], [address] , [facility] 4 11:51:41 Problem Notes None recorded. Medical Equipment None Reported. Allergies Allergen ID Allergen Name Allergen Category Reaction Reaction Severity Criticality Documentation Date Start Date Code Code System Note Provider Name and Address Organization Details Recorded Time 41126 aspirin medicatio n other Not available Not available 04/09/2024 1191 RxNorm React ion: unkno wn, unspe cifie d;; Not Available [facility] 4 00:48:28 Medications Name Sig Start Date [...] mg tablet 2018 active Medicatio n ID: [id number] Du ration Value: 4 Brand Name: oxycodone [...] topical solution 2018 active Medicatio n ID: [id number] Pr escribed By Name: Delmer Lora MD Brand Name: clotrimaeduardo rowna Send Method: E-Prescri bed Subs Allowed: subs [...] mg capsule 2018 active Medicatio n ID: [id number] Du ration Value: 10 Brand Name: cefdinir [...] 5 drop 2018 active Medicatio n ID: [id number] Du ration Value: 10 Brand Name: ofloxacin Send Method: E-Prescri bed Subs Allowed: subs OK Specia l Instructi on: 5 drops into affected ear twice daily for 10 days Medi cationGen ericName: ofloxacin Not Available Not Available Not Available Tylenol 2018 active Medicatio n ID: [id number] Br and Name: tylenol S end Method: E-Prescri bed Subs Allowed: subs OK Medica tionGener icName: tylenol Not Available Not Available Not Available fluocinolo ne acetonide oil 0.01 % ear drops Instill 2 drop into both ears twice a day as needed 2021 active Medicatio n ID: [id number] Du ration Value: 14 Brand Name: fluocinol [...] Address Organization Details Last Updated DateTime 11/04/2024 43246.98 g 30.4 kg/m2 127 cm Susanna Ramos [place] - [facility] 11/04/2024 11:29:29 Social History None recorded. Functional Status None recorded. Mental Status None recorded. Family History Nothing Reported. Medical History No medical history recorded. Gynecological HistoryNo gynecological history recorded. Obstetrics History GPAL:G 0 P 0 0 0 0 Past Encounters Encounter ID Performer Location Encounter Start Date Encounter Closed Date Diagnosis/Indication Diagnosis SNOMED-CT Code Diagnosis ICD10 Code Diagnosis Note [id number] MODESTO DIEGO MD [facility]NT[facility] on [address] [place] [phone] 11/04/2024 11:16:40 11/04/2024 11:49:00 Itching of skin 752382437 L29.9 Chronic ot itis externa 17257731 H60.63 Health Concerns Section Related Observation LastModified by Organization Detai ls LastModified Time None Recorded Concern Status LastModified by Organization Details LastModified Time None Recorded Advance Directives Directive None Recorded Payers Encounter Date Sequence Insurance Name Policy Number Policy Carmen Covered Member ID Carmen Member ID Guarantor Name 11/04/2024 1 [facility] [facility] [place] HE[place] PLAN (MEDICAID HMO) [id number] Shari TreviñoMukesh [facility] [id number] Shari Lyons Notes Date Note Type Note Provider Name and Address Organization Details Recorded Time 11/04/2024 text/html 39 year old rand iwck presents today for evaluation of itchy ears.She [...] she cannot hear well. MODESTO DIEGO MD [address] [place] [address], [address], [place] - [facility] 11/05/2024 10:56:41 OBGyn Episode No OBEpisode recorded.
== END 2025-01-03 11:36 | disposition home or self-care (01) ==
PROVIDERS: PCP Internal Medicine; Visit Provider Physician Assistant Surgical
DX: L98.7 Excessive and redundant skin and subcutaneous tissue (principal); Z98.890 Other specified postprocedural states
CPT/HCPCS: 99024

== ENCOUNTER → 2025-01-03 11:07 | Outpatient (BNVA) | payer OTHER, SELFPAY | PROVIDERS: PCP Internal Medicine; Visit Provider Physician Assistant Surgical | DX: Z48.817 Encounter for surgical aftercare following surgery on the skin and subcutaneous tissue (principal); Z98.890 Other specified postprocedural states | CPT/HCPCS: 99212 ==

== ENCOUNTER 2025-01-24 09:31 | Outpatient (AMB) | payer OTHER, SELFPAY ==
--- NOTE | 2025-01-24 09:43 | MHC.OFFVISWM ---
VS Expanded 01/24/25 09:52 BP 123/57 L Intake Visit Reasons: (OV) s/p Thighplasty 12/05/24 Allergies aspirin [ASPIRIN] Allergy (Severe, Verified 12/18/24 13:50) severe facial swelling/redness HPI Comments Details: Pleasant 39-year-old female returns to the office today in follow-up. She is status post bilateral thighplasty on 12/05/2024. Overall, she is very satisfied with the results of her procedure. She was told to advise exercise until the beginning of January. She has no complaints of pain and is feeling well. She has been able to use the treadmill, 20 minutes per day without any difficulty. Meal plan: Fairlife RTD (mix TWO oz of Fairlife with SIX oz almond milk) at 7am-9am and 10am-12pm, two IQ protein bars at 1pm-3pm and 4pm-6pm meal at 7pm (4 forks of protein and 4 forks of salad or vegetables). [facility] Medical History Elevated cholesterol DJD (degenerative joint disease) GERD (gastroesophageal reflux disease) Stone in kidney Surgical History S/P brachioplasty S/P panniculectomy Hx of hysterectomy History of sleeve gastrectomy H/O lithotripsy H/O: knee surgery History of ankle surgery Hx of section Family History Mother Diabetes Hypertension Fibromyalgia Arthritis Father Stomach cancer Diabetes Hypertension Blind Sister Arthritis Sister No problems noted. Brother No problems noted. Son No problems noted. Social History Household Members Other:: son-age 18 Are you a primary respiratory care program director to a significant other at home: No Do you presently have visiting nurse or other home services: No Alcohol intake: never Patient Tobacco Use Status: Former Tobacco user Tobacco use type: Cigarette Years Smoked: 1 service: No Current occupational status: employed Physical Exam Skin Other: Bilateral thigh incisions healed nicely. No evidence of infection or dehiscence. Assessment & Plan Assessment & Plan (1) S/P thighplasty: Code(s): Z98.890 - Other specified postprocedural states Category: Surgical Plan: Patient is doing very well. She may increase her exercise to 30 minutes per day. She we will continue to monitor her incisions. Return to the office as scheduled. Text with any questions or concerns.
[2025-01-24 09:52] VITALS: BP 123/57
--- OUTSIDE RECORDS SUMMARY | 2025-01-24 10:15 | XMS_ITS | Data Portability ---
Author Organization [place] - [facility], Allergy Address [address] [place] [address] Care Team Providers Care Director Of Global Talent Name Role Phone CAMILLE MELENDEZ Primary Care [...] 1 %-0.05 % topical cream 024 024 [facility]/Pharmacy #[id number], [address] [place], [address], 11:53:56 Patient TargetsNo targets recorded. Patient InstructionsNo instructions recorded. Reason for Referral None Reported. Problems Name Problem SNOMED Code Status Onset Date Resolution Date Notes Provider Name and Address Organization Details Recorded Time Acute eczematoi d otitis externa 45827722 Active 2021 Acute eczematoi d otitis externa, bilateral ; Note: Date Diagnosed : 2 10:17 AM (H60.543) Not Available [facility] 4 03:22:52 Diffuse otitis externa 45887522 Active 2018 Diffuse otitis externa, left ear; Note: Date Diagnosed : 04/08/2019 3:42 PM (H60.312) Not Available [facility] 4 03:22:52 Otalgia of left ear 9919337952 Active 2018 Otalgia, left ear; Note: Date Diagnosed : 04/08/2019 3:48 PM (H92.02) Not Available [facility] 4 03:22:52 Abnormal auditory perceptio n 87551425 Active 2021 Other abnormal auditory perceptio ns, bilateral ; Note: Date Diagnosed : 2 10:17 AM (H93.293) Not Available [facility] 4 03:22:52 Itching of skin 478244826 Active 2023 CHRISTIAN RODRIGUEZ PA-C [address] [place] [address],[place] [address], [place], [address] , [facility] 4 11:51:30 Chronic otitis externa 72629140 Active 2023 CHRISTIAN RODRIGUEZ PA-C [address] [place] [address],[place] [address], [place], [address] , [facility] 4 11:51:41 Problem Notes None recorded. Medical Equipment None Reported. Allergies Allergen ID Allergen Name Allergen Category Reaction Reaction Severity Criticality Documentation Date Start Date Code Code System Note Provider Name and Address Organization Details Recorded Time 71096 aspirin medicatio n other Not available Not available 04/09/2024 1191 RxNorm React ion: unkno wn, unspe cifie d;; Not Available [facility] 4 00:48:28 Medications Name Sig Start Date [...] mg tablet 2018 active Medicatio n ID: [id number] Du ration Value: 4 Brand Name: oxycodone [...] topical solution 2018 active Medicatio n ID: [id number] Pr escribed By Name: Delmer Lora MD [...] mg capsule 2018 active Medicatio n ID: [id number] Du ration Value: 10 Brand Name: cefdinir [...] 5 drop 2018 active Medicatio n ID: [id number] Du ration Value: 10 Brand Name: ofloxacin Send Method: E-Prescri bed Subs Allowed: subs OK Specia l Instructi on: 5 drops into affected ear twice daily for 10 days Medi cationGen ericName: ofloxacin Not Available Not Available Not Available Tylenol 2018 active Medicatio n ID: [id number] Br and Name: tylenol S end Method: E-Prescri bed Subs Allowed: subs OK Medica tionGener icName: tylenol Not Available Not Available Not Available fluocinolo ne acetonide oil 0.01 % ear drops Instill 2 drop into both ears twice a day as needed 2021 active Medicatio n ID: [id number] Du ration Value: 14 Brand Name: fluocinol [...] Address Organization Details Last Updated DateTime 11/04/2024 70339.98 g 30.4 kg/m2 127 cm Susanna Ramos [place] - [facility] 11/04/2024 11:29:29 Social History None recorded. Functional Status None recorded. Mental Status None recorded. Family History Nothing Reported. Medical History No medical history recorded. Gynecological HistoryNo gynecological history recorded. Obstetrics History GPAL:G 0 P 0 0 0 0 Past Encounters Encounter ID Performer Location Encounter Start Date Encounter Closed Date Diagnosis/Indication Diagnosis SNOMED-CT Code Diagnosis ICD10 Code Diagnosis Note [id number] MODESTO DIEGO MD ENTS [facility] on [address] [place] [phone] 11/04/2024 11:16:40 11/04/2024 11:49:00 Itching of skin 439684880 L29.9 Chronic ot itis externa 24395450 H60.63 Health Concerns Section Related Observation LastModified by Organization Detai ls LastModified Time None Recorded Concern Status LastModified by Organization Details LastModified Time None Recorded Advance Directives Directive None Recorded Payers Encounter Date Sequence Insurance Name Policy Number Policy Carmen Covered Member ID Carmen Member ID Guarantor Name 11/04/2024 1 [facility] [place] [facility] [place] (MEDICAID HMO) [id number] Shari TreviñoMukesh [facility] [id number] Shari Lyons Notes Date Note Type [...] she cannot hear well. MODESTO DIEGO MD [address] [place] [address], [address], [place] - [facility] 11/05/2024 10:56:41 OBGyn Episode No OBEpisode recorded.
== END 2025-01-24 09:49 | disposition home or self-care (01) ==
PROVIDERS: PCP Internal Medicine; Visit Provider Physician Assistant Surgical
DX: Z98.890 Other specified postprocedural states (principal)
CPT/HCPCS: 99024

== ENCOUNTER → 2025-01-24 09:31 | Outpatient (BNVA) | payer OTHER, SELFPAY | PROVIDERS: PCP Internal Medicine; Visit Provider Physician Assistant Surgical | DX: Z48.89 Encounter for other specified surgical aftercare (principal) | CPT/HCPCS: 99212 ==

== ENCOUNTER 2025-02-28 09:36 | Outpatient (AMB) | payer OTHER, SELFPAY ==
[2025-02-28 09:39] VITALS: BP 124/59; PULSE 75; TEMP 36.8; O2SAT 100; BMI 30.9
--- NOTE | 2025-02-28 09:39 | A.OFFVIS_ITS ---
VS Expanded 02/28/25 09:39 BP 124/59 L Blood Pressure Location Rt brachial Blood Pressure Position Sitting Pulse 75 Pulse Source Pulse Oximeter Temp 98.2 F Temperature Source Temporal Artery Scan Pulse Oximetry 100 Oxygen Delivery Method Room Air Height 4 ft 3 in Weight 114 lb 3.2 oz BMI 30.9 Body Fat % 33.4 Body Fat Mass 38.2 Fat Free Mass 76.0 Visceral Fat Rating 7.0 Body Water % 47.5 Body Water Mass 54.2 Muscle Mass/Score 72.0 Basal Metabolic Rate/Score 1,078 Intake Visit Reasons: (OV) s/p Thighplasty 12/05/24 Community Chest Officer Required: Yes Community Chest Officer Name: hospital cmi Allergies aspirin [ASPIRIN] Allergy (Severe, Verified 02/28/25 09:41) severe facial swelling/redness Medication List - Last Reconciled 02/28/25 by JOURDAN Saini atorvastatin 40 mg PO BEDTIME calcium citrate 200 mg PO BID cetirizine 10 mg PO DAILY PRN cholecalciferol (vitamin D3) 25 mcg PO DAILY 90 days clotrimazole 1% (Antifungal (clotrimazole)) 1 appl topical BID iron,carbonyl-vitamin C 65 mg iron- 125 mg (Vitron-C) 1 tab PO DAILY multivitamin 1 tab PO DAILY ondansetron 4 mg PO Q12H thiamine HCl (vitamin B1) 100 mg PO DAILY 90 days vitamin A palmitate 3,000 mcg PO DAILY 3 months HPI Comments Details: Patient is a pleasant 39-year-old female who returns to the office today in follow-up. She is approximately 3 months post thigh plasty performed on 12/05/2024. She is status post panniculectomy and brachioplasty performed on 05/14/2024. And status post sleeve gastrectomy on 11/10/2022. Weight today is 114.2 lb with a BMI of 30.9. She states she is doing very well and is very happy with the results of her procedure. She is now walking 30 minutes a day. Due to the excess weight loss, her breasts hang down almost to her umbilicus. Because of this she develops rash underneath the breasts with malodor. It is much worse in the summer months. She has used antifungal cream with good effect although recurrence. She was referred to Dr Carter at [facility] but was referred for breast reduction, she is in need of a breast lift and I called Dr Carter's office, spoke w nurse, Rosemary. Pt will be scheduled meal plan: Fairlife 30 gm 1/2 shake 1/4 c bulgarian yogurt meal 2-3 oz protein and 2-3 oz veg another 1/2 shake or another meal. sometimes bar after Exercise plan: treadmill 200-230 alyssa 7 days per week PFSH Medical History Elevated cholesterol DJD (degenerative joint disease) GERD (gastroesophageal reflux disease) Stone in kidney Surgical History S/P brachioplasty S/P panniculectomy Hx of hysterectomy History of sleeve gastrectomy H/O lithotripsy H/O: knee surgery History of ankle surgery Hx of section Family History Mother Diabetes Hypertension Fibromyalgia Arthritis Father Stomach cancer Diabetes Hypertension Blind Sister Arthritis Sister No problems noted. Brother No problems noted. Son No problems noted. Social History Household Members Other:: son-age 18 Are you a primary respiratory care assistant to a significant other at home: No Do you presently have visiting nurse or other home services: No Alcohol intake: never Patient Tobacco Use Status: Former Tobacco user Tobacco use type: Cigarette Years Smoked: 1 service: No Current occupational status: employed Physical Exam Vital Signs: Last Vital Signs Temp 98.2 F 02/28/25 09:39 Pulse 75 02/28/25 09:39 BP 124/59 L 02/28/25 09:39 Pulse Ox 100 02/28/25 09:39 Oxygen Delivery Method Room Air 02/28/25 09:39 BMI result Body Mass Index 30.9 Const General: healthy appearing and no acute distress Resp Effort & Inspection: normal respiratory effort Auscultation: clear to auscultation bilaterally Cardio Rate: regular rate Rhythm: regular rhythm GI Auscultation: normal bowel sounds Skin Other: Mild erythematous rash underneath bilateral breasts Extrem General: Yes normal to inspection Assessment & Plan Assessment & Plan (1) S/P thighplasty: Code(s): Z98.890 - Other specified postprocedural states Category: Surgical Plan: Patient is doing well status post thigh plasty. She may return to exercise with a goal of burning 350 calories daily. Return to clinic 2 months. (2) Excess skin: Code(s): L98.7 - Excessive and redundant skin and subcutaneous tissue Category: Medical Plan: Patient will be referred to Plastic surgery for breast lift. Regarding the dermatitis, she may apply clotrimazole as needed. Refill sent. Medications: Refilled clotrimazole 1% (Antifungal (clotrimazole)) 1 appl topical BID 45 grams 5RF
--- OUTSIDE RECORDS SUMMARY | 2025-02-28 10:37 | XMS_ITS | Data Portability ---
Author Organization [place] - [facility], Allergy Address [address] [place] [address] Care Team Providers Care Physician Surgeon Name Role Phone CAMILLE MELENDEZ Primary Care [...] 1 %-0.05 % topical cream 024 024 [facility]/Pharmacy #[id number], [address] [place], [address], 11:53:56 Patient TargetsNo targets recorded. Patient InstructionsNo instructions recorded. Reason for Referral None Reported. Problems Name Problem SNOMED Code Status Onset Date Resolution Date Notes Provider Name and Address Organization Details Recorded Time Acute eczematoi d otitis externa 84369481 Active 2021 Acute eczematoi d otitis externa, bilateral ; Note: Date Diagnosed : 2 10:17 AM (H60.543) Not Available [facility] 4 03:22:52 Diffuse otitis externa 44055607 Active 2018 Diffuse otitis externa, left ear; Note: Date Diagnosed : 04/08/2019 3:42 PM (H60.312) Not Available [facility] 4 03:22:52 Otalgia of left ear 4645576856 Active 2018 Otalgia, left ear; Note: Date Diagnosed : 04/08/2019 3:48 PM (H92.02) Not Available [facility] 4 03:22:52 Abnormal auditory perceptio n 24924417 Active 2021 Other abnormal auditory perceptio ns, bilateral ; Note: Date Diagnosed : 2 10:17 AM (H93.293) Not Available [facility] 4 03:22:52 Itching of skin 522348301 Active 2023 CHRISTIAN RODRIGUEZ PA-C [address] [place] [address],[place] [address], [place], [address] , [facility] 4 11:51:30 Chronic otitis externa 71862080 Active 2023 CHRISTIAN RODRIGUEZ PA-C [address] [place] [address],[place] [address], [place], [address] , [facility] 4 11:51:41 Problem Notes None recorded. Medical Equipment None Reported. Allergies Allergen ID Allergen Name Allergen Category Reaction Reaction Severity Criticality Documentation Date Start Date Code Code System Note Provider Name and Address Organization Details Recorded Time 16715 aspirin medicatio n other Not available Not available 04/09/2024 1191 RxNorm React ion: unkno wn, unspe cifie d;; Not Available [facility] 4 00:48:28 Medications Name Sig [...] mg tablet 2018 active Medicatio n ID: [id number] Du ration Value: 4 Brand Name: oxycodone [...] topical solution 2018 active Medicatio n ID: [id number] Pr escribed By Name: Delmer Lora MD [...] mg capsule 2018 active Medicatio n ID: [id number] Du ration Value: 10 Brand Name: cefdinir [...] 5 drop 2018 active Medicatio n ID: [id number] Du ration Value: 10 Brand Name: ofloxacin Send Method: E-Prescri bed Subs Allowed: subs OK Specia l Instructi on: 5 drops into affected ear twice daily for 10 days Medi cationGen ericName: ofloxacin Not Available Not Available Not Available Tylenol 2018 active Medicatio n ID: [id number] Br and Name: tylenol S end Method: E-Prescri bed Subs Allowed: subs OK Medica tionGener icName: tylenol Not Available Not Available Not Available fluocinolo ne acetonide oil 0.01 % ear drops Instill 2 drop into both ears twice a day as needed 2021 active Medicatio n ID: [id number] Du ration Value: 14 Brand Name: fluocinol [...] Address Organization Details Last Updated DateTime 11/04/2024 98527.98 g 30.4 kg/m2 127 cm Susanna Ramos [place] - [facility] 11/04/2024 11:29:29 Social History None recorded. Functional Status None recorded. Mental Status None recorded. Family History Nothing Reported. Medical History No medical history recorded. Gynecological HistoryNo gynecological history recorded. Obstetrics History GPAL:G 0 P 0 0 0 0 Past Encounters Encounter ID Performer Location Encounter Start Date Encounter Closed Date Diagnosis/Indication Diagnosis SNOMED-CT Code Diagnosis ICD10 Code Diagnosis Note [id number] MODESTO DIEGO MD ENTS [facility] on [address] [place] [phone] 11/04/2024 11:16:40 11/04/2024 11:49:00 Itching of skin 222168760 L29.9 Chronic ot itis externa 31164708 H60.63 Health Concerns Section Related Observation LastModified by Organization Detai ls LastModified Time None Recorded Concern Status LastModified by Organization Details LastModified Time None Recorded Advance Directives Directive None Recorded Payers Encounter Date Sequence Insurance Name Policy Number Policy Carmen Covered Member ID Carmen Member ID Guarantor Name 11/04/2024 1 [facility] [place] [facility] [place]AN (MEDICAID HMO) [id number] Sahri TreviñoMukesh [facility] [id number] Shari Lyons Notes Date Note Type [...] she cannot hear well. MODESTO DIEGO MD [address] [place] [address], [address], [place] - [facility] 11/05/2024 10:56:41 OBGyn Episode No OBEpisode recorded.
== END 2025-02-28 10:47 | disposition home or self-care (01) ==
LOC: HO.HBS 09:37
PROVIDERS: PCP Internal Medicine; Visit Provider Physician Assistant Surgical
DX: Z98.890 Other specified postprocedural states (principal); L98.7 Excessive and redundant skin and subcutaneous tissue
CPT/HCPCS: 99024

== ENCOUNTER → 2025-02-28 09:36 | Outpatient (BNVA) | payer OTHER, SELFPAY | PROVIDERS: PCP Internal Medicine; Visit Provider Physician Assistant Surgical | DX: Z98.890 Other specified postprocedural states (principal) | CPT/HCPCS: 99212 ==